=== PATIENT | male | born 1945 | race Caucasian/White ===

== ENCOUNTER 2024-04-01 12:26 | Outpatient (CLI) | payer MEDICARE, BC, SELFPAY | END 2024-04-01 12:27 | disposition home or self-care (01) | LOC: WOUND 12:30 | PROVIDERS: PCP Family Medicine Addiction Medicine; Visit Provider Nurse Practitioner Family | DX: E11.622 Type 2 diabetes mellitus with other skin ulcer (principal); L97.812 Non-pressure chronic ulcer of other part of right lower leg with fat layer exposed; I73.9 Peripheral vascular disease, unspecified; F17.200 Nicotine dependence, unspecified, uncomplicated; Z79.84 Long term (current) use of oral hypoglycemic drugs | CPT/HCPCS: 11042; G0463 ==

== ENCOUNTER 2024-04-08 13:12 | Outpatient (CLI) | payer MEDICARE, BC, SELFPAY | END 2024-04-08 13:13 | disposition home or self-care (01) | LOC: WOUND 13:12 | PROVIDERS: PCP Family Medicine Addiction Medicine; Visit Provider Nurse Practitioner Family | DX: E11.622 Type 2 diabetes mellitus with other skin ulcer (principal); L97.812 Non-pressure chronic ulcer of other part of right lower leg with fat layer exposed; F17.200 Nicotine dependence, unspecified, uncomplicated; Z79.84 Long term (current) use of oral hypoglycemic drugs | CPT/HCPCS: 11042 ==

== ENCOUNTER 2024-04-15 13:26 | Outpatient (CLI) | payer MEDICARE, BC, SELFPAY | END 2024-04-15 13:27 | disposition home or self-care (01) | LOC: WOUND 13:26 | PROVIDERS: PCP Family Medicine Addiction Medicine; Visit Provider Nurse Practitioner Family | DX: E11.622 Type 2 diabetes mellitus with other skin ulcer (principal); I73.9 Peripheral vascular disease, unspecified; L97.812 Non-pressure chronic ulcer of other part of right lower leg with fat layer exposed; F17.200 Nicotine dependence, unspecified, uncomplicated; Z79.84 Long term (current) use of oral hypoglycemic drugs | CPT/HCPCS: 11042 ==

== ENCOUNTER 2024-04-22 08:14 | Outpatient (CLI) | payer MEDICARE, BC, SELFPAY | END 2024-04-22 08:15 | disposition home or self-care (01) | PROVIDERS: PCP Family Medicine Addiction Medicine; Visit Provider Nurse Practitioner Family | DX: I73.9 Peripheral vascular disease, unspecified (principal); L97.812 Non-pressure chronic ulcer of other part of right lower leg with fat layer exposed; Z79.84 Long term (current) use of oral hypoglycemic drugs | CPT/HCPCS: 11042 ==

== ENCOUNTER 2024-04-29 10:42 | Outpatient (CLI) | payer MEDICARE, BC, SELFPAY | END 2024-04-29 10:43 | disposition home or self-care (01) | LOC: WOUND 10:42 | PROVIDERS: PCP Family Medicine Addiction Medicine; Visit Provider Nurse Practitioner Family | DX: E11.622 Type 2 diabetes mellitus with other skin ulcer (principal); I73.9 Peripheral vascular disease, unspecified; L97.812 Non-pressure chronic ulcer of other part of right lower leg with fat layer exposed; F17.200 Nicotine dependence, unspecified, uncomplicated; Z79.84 Long term (current) use of oral hypoglycemic drugs | CPT/HCPCS: 11042 ==

== ENCOUNTER 2024-05-06 12:55 | Outpatient (CLI) | payer MEDICARE, BC, SELFPAY | END 2024-05-06 12:56 | disposition home or self-care (01) | LOC: WOUND 12:55 | PROVIDERS: PCP Family Medicine Addiction Medicine; Visit Provider Nurse Practitioner Family | DX: E11.622 Type 2 diabetes mellitus with other skin ulcer (principal); I73.9 Peripheral vascular disease, unspecified; L97.812 Non-pressure chronic ulcer of other part of right lower leg with fat layer exposed; I50.32 Chronic diastolic (congestive) heart failure | CPT/HCPCS: 15271; Q4158 ==

== ENCOUNTER 2024-05-13 12:36 | Outpatient (CLI) | payer MEDICARE, BC, SELFPAY | END 2024-05-13 12:37 | disposition home or self-care (01) | LOC: WOUND 12:36 | PROVIDERS: PCP Family Medicine Addiction Medicine; Visit Provider Nurse Practitioner Family | DX: E11.622 Type 2 diabetes mellitus with other skin ulcer (principal); I73.9 Peripheral vascular disease, unspecified; L97.812 Non-pressure chronic ulcer of other part of right lower leg with fat layer exposed; S81.812A Laceration without foreign body, left lower leg, initial encounter; W22.8XXA Striking against or struck by other objects, initial encounter; F17.200 Nicotine dependence, unspecified, uncomplicated | CPT/HCPCS: G0463 ==

== ENCOUNTER 2024-05-20 09:32 | Outpatient (CLI) | payer MEDICARE, BC, SELFPAY | END 2024-05-20 09:33 | disposition home or self-care (01) | LOC: WOUND 09:34 | PROVIDERS: PCP Family Medicine Addiction Medicine; Visit Provider Nurse Practitioner Family | DX: E11.622 Type 2 diabetes mellitus with other skin ulcer (principal); L97.812 Non-pressure chronic ulcer of other part of right lower leg with fat layer exposed; F17.200 Nicotine dependence, unspecified, uncomplicated | CPT/HCPCS: 15271; Q4158 ==

== ENCOUNTER 2024-05-27 11:02 | Outpatient (CLI) | payer MEDICARE, BC, SELFPAY | END 2024-05-27 11:03 | disposition home or self-care (01) | LOC: WOUND 11:02 | PROVIDERS: PCP Family Medicine Addiction Medicine; Visit Provider Nurse Practitioner Family | DX: E11.622 Type 2 diabetes mellitus with other skin ulcer (principal); I73.9 Peripheral vascular disease, unspecified; L97.812 Non-pressure chronic ulcer of other part of right lower leg with fat layer exposed; F17.200 Nicotine dependence, unspecified, uncomplicated | CPT/HCPCS: G0463 ==

== ENCOUNTER 2024-06-03 12:40 | Outpatient (CLI) | payer MEDICARE, BC, SELFPAY | END 2024-06-03 12:41 | disposition home or self-care (01) | LOC: WOUND 12:40 | PROVIDERS: PCP Family Medicine Addiction Medicine; Visit Provider Nurse Practitioner Family | DX: E11.622 Type 2 diabetes mellitus with other skin ulcer (principal); L97.811 Non-pressure chronic ulcer of other part of right lower leg limited to breakdown of skin; I73.9 Peripheral vascular disease, unspecified; Z79.84 Long term (current) use of oral hypoglycemic drugs | CPT/HCPCS: 97597 ==

== ENCOUNTER 2024-06-10 12:46 | Outpatient (CLI) | payer MEDICARE, BC, SELFPAY | END 2024-06-10 12:47 | disposition home or self-care (01) | LOC: WOUND 12:53 | PROVIDERS: PCP Family Medicine Addiction Medicine; Visit Provider Nurse Practitioner Family | DX: E11.622 Type 2 diabetes mellitus with other skin ulcer (principal); L97.811 Non-pressure chronic ulcer of other part of right lower leg limited to breakdown of skin; I73.9 Peripheral vascular disease, unspecified; F17.200 Nicotine dependence, unspecified, uncomplicated | CPT/HCPCS: 97597; G0463 ==

== ENCOUNTER 2024-06-17 12:39 | Outpatient (CLI) | payer MEDICARE, BC, SELFPAY | END 2024-06-17 12:40 | disposition home or self-care (01) | LOC: WOUND 12:39 | PROVIDERS: PCP Family Medicine Addiction Medicine; Visit Provider Nurse Practitioner Family | DX: E11.622 Type 2 diabetes mellitus with other skin ulcer (principal); I73.9 Peripheral vascular disease, unspecified; L97.818 Non-pressure chronic ulcer of other part of right lower leg with other specified severity; F17.200 Nicotine dependence, unspecified, uncomplicated; Z79.84 Long term (current) use of oral hypoglycemic drugs | CPT/HCPCS: G0463 ==

== ENCOUNTER 2024-07-01 12:35 | Outpatient (CLI) | payer MEDICARE, BC, SELFPAY | END 2024-07-01 12:36 | disposition home or self-care (01) | LOC: WOUND 12:36 | PROVIDERS: PCP Family Medicine Addiction Medicine; Visit Provider Nurse Practitioner Family | DX: E11.622 Type 2 diabetes mellitus with other skin ulcer (principal); I73.9 Peripheral vascular disease, unspecified; L97.818 Non-pressure chronic ulcer of other part of right lower leg with other specified severity; Z79.84 Long term (current) use of oral hypoglycemic drugs | CPT/HCPCS: G0463 ==

== ENCOUNTER 2024-12-28 16:31 | Inpatient (IN) | payer MEDICARE, BC, SELFPAY ==
[2024-12-28] VITALS (52 sets, daily range): BP systolic 97–200; BP diastolic 52–108; PULSE 74–134; RESP 8–28; TEMP 36.6–37; O2SAT 90–100; BMI 28.0; BMI 25.0
--- NOTE | 2024-12-28 16:55 | ED_ITS ---
HPI - General Adult General Chief complaint: Weakness Stated complaint: Weakness Time Seen by Provider: 12/28/24 16:55 History of Present Illness HPI narrative: Patient reports a couple of days of progressive weakness. His ex- phoned for EMS today bringing him to ED. Patient is unsure if he took his medications today. Is in a?fib with HR 99- 120's. Denies pain, nausea, vomiting diarrhea. Does have a congested cough and is a smoker. 79-year-old man presenting to the emergency department concern of weakness. Worse over the last couple of days. Brought by EMS. Denies any pain. Eating or drinking very little over the last couple of days. Has had cough which soun ds somewhat chronic. Does have history of COPD. Does smoke. No fever. His ex reports that he cannot see. Unknown whether not he has been having dark stools. 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 metformin 500 mg daily clopidogrel 75 mg daily aspirin 81 mg daily trazodone 50 mg at bedtime iron supplementation ferrous gluconate 324 mg daily rosuvastatin 40 mg daily Apparently is pending a right carotid endarterectomy as described. Apparently fell a couple of times in the last 2 days recently striking his head ?hard?. Denies pain otherwise. No neck pain. Related Data Home Medications ?Medication ?Instructions ?Recorded ?Confirmed clopidogrel 75 mg tablet 75 mg PO DAILY 12/28/24 12/28/24 metformin 500 mg tablet 500 mg PO DAILY 12/28/24 12/28/24 metoprolol tartrate 75 mg tablet 75 mg PO BID 12/28/24 12/28/24 rosuvastatin 40 mg tablet 40 mg PO HS 12/28/24 12/28/24 trazodone 50 mg tablet 50 mg PO QPM 12/28/24 12/28/24 Allergies Allergy/AdvReac Type Severity Reaction Status Date / Time No Known Drug Allergies Allergy Verified 12/28/24 19:50 Review of Systems Status of ROS: Reports: 6 or more systems reviewed and unremarkable except as noted in History and below PFSH PFSH Social History Smoking Status: Current every day smoker What tobacco products do you use: cigarettes How often do you have a drink containing alcohol: never AUDIT-C Alcohol total score: 0 Non-prescribed substance use: denies use service: Yes Exam Narrative: Exam Narrative: Pleasant. Does appear tired. Heavily bearded stain presumably from cigarette smoking. Very pale mucous membranes. Full dentures. Breathing easily with trace end-expiratory wheeze diffusely. In at times appears to be staring past me consistent with macular degeneration as described. Pupils are equal. I do not appreciate any evidence of head injury. Neck is supple nontender. Back nontender. Abdomen is soft nontender. 1+ pretibial pitting edema right little greater than the left. Minor tears over right forearm and Band-Aids in place as well as bilateral shins. Reports becoming a little lightheaded when he goes to sit for exam. Heart is tachycardic occasional ectopic beat. There is odor of old urine. Return later to do stool guaiac collection. There is no blood staining in the perianal area. Moderate soft stool deep in rectal vault. Very melanotic in appearance. Const: Vital Signs, click to edit/add: Vital Signs - 24 hr 12/28/24 16:42 12/28/24 16:43 12/28/24 16:45 Temperature 98.3 F Pulse Rate 123 H 122 H Pulse Rate [Pulse Oximeter] 126 H Respiratory Rate 21 20 18 Blood Pressure 97/52 L Blood Pressure [Ri ght Upper Arm] 97/52 L Pulse Oximetry 98 91 96 Oxygen Delivery Me thod Room Air 12/28/24 16:45 12/28/24 17:00 12/28/24 17:15 Temperature Pulse Rate 119 H 105 H 134 H Pulse Rate [Pulse Oximeter] Respiratory Rate 28 H 13 25 H Blood Pressure Blood Pressure [Ri ght Upper Arm] Pulse Oximetry 97 100 93 Oxygen Delivery Me thod 12/28/24 17:17 12/28/24 17:18 12/28/24 17:19 Temperature Pulse Rate 111 H 105 H Pulse Rate [Pulse Oximeter] Respiratory Rate 27 H 14 Blood Pressure 123/66 Blood Pressure [Ri ght Upper Arm] Pulse Oximetry 98 100 94 Oxygen Delivery Me thod 12/28/24 17:30 12/28/24 17:32 12/28/24 17:45 Temperature Pulse Rate 111 H 106 H 118 H Pulse Rate [Pulse Oximeter] Respiratory Rate 17 17 Blood Pressure 99/60 Blood Pressure [Ri ght Upper Arm] Pulse Oximetry 96 98 95 Oxygen Delivery Me thod 12/28/24 17:47 12/28/24 18:00 12/28/24 18:01 Temperature Pulse Rate 95 76 120 H Pulse Rate [Pulse Oximeter] Respiratory Rate 24 23 19 Blood Pressure 114/66 114/93 H Blood Pressure [Ri ght Upper Arm] Pulse Oximetry 99 100 99 Oxygen Delivery Me thod 12/28/24 18:19 12/28/24 18:30 12/28/24 18:32 Temperature Pulse Rate 88 115 H Pulse Rate [Pulse Oximeter] Respiratory Rate 14 20 24 Blood Pressure 103/71 142/71 H Blood Pressure [Ri ght Upper Arm] Pulse Oximetry 100 99 Oxygen Delivery Me thod 12/28/24 18:45 12/28/24 18:47 12/28/24 18:48 Temperature Pulse Rate 105 H 122 H 114 H Pulse Rate [Pulse Oximeter] Respiratory Rate 19 17 15 Blood Pressure 118/96 H Blood Pressure [Ri ght Upper Arm] Pulse Oximetry 100 100 100 Oxygen Delivery Ar thod 12/28/24 19:00 12/28/24 19:01 12/28/24 19:17 Temperature 98.2 F Pulse Rate 105 H Pulse Rate [Pulse Oximeter] Respiratory Rate 17 25 H 14 Blood Pressure 130/82 172/65 H Blood Pressure [Ri ght Upper Arm] Pulse Oximetry [facility] 12/28/24 19:30 12/28/24 19:32 12/28/24 19:45 Temperature Pulse Rate Pulse Rate [Pulse Oximeter] Respiratory Rate 12 20 13 Blood Pressure 122/62 Blood Pressure [Ri ght Upper Arm] Pulse Oximetry Oxygen Delivery Ar thod 12/28/24 19:47 12/28/24 20:07 12/28/24 20:15 Temperature Pulse Rate 104 H Pulse Rate [Pulse Oximeter] Respiratory Rate 10 L 23 14 Blood Pressure 151/76 H Blood Pressure [Ri ght Upper Arm] Pulse Oximetry 98 Oxygen Delivery Ar thod 12/28/24 20:29 12/28/24 20:44 Temperature 98.0 F 98.0 F Pulse Rate 99 120 H Pulse Rate [Pulse Oximeter] Respiratory Rate 18 18 Blood Pressure 157/82 H 169/82 H Blood Pressure [Ri ght Upper Arm] Pulse Oximetry 99 99 Oxygen Delivery Me thod Room Air Room Air Documenting provider has reviewed patient's vital signs: yes Course Vital Signs Vital signs: Initial Vital Signs Pulse Rate 123 H 12/28/24 16:42 Respiratory Rate 21 12/28/24 16:42 Blood Pressure 97/52 L 12/28/24 16:42 Blood Pressure Mean 67 L 12/28/24 16:42 Pulse Oximetry 98 12/28/24 16:42 Vital Signs Pulse Rate 123 H 12/28/24 16:42 Respiratory Rate 21 12/28/24 16:42 Blood Pressure 97/52 L 12/28/24 16:42 Pulse Oximetry 98 12/28/24 16:42 Temperature 98.0 F 12/28/24 20:44 Pulse Rate 120 H 12/28/24 20:44 Respiratory Rate 18 12/28/24 20:44 Blood Pressure 169/82 H 12/28/24 20:44 Pulse Oximetry 99 12/28/24 20:44 Oxygen Delivery Method Room Air 12/28/24 20:44 Medications Administered Medications: Discontinued Medications Generic Name Dose Route Start Last Admin Trade Name Freq PRN Reason Stop Dose Admin Sodium Chloride 500 mls @ 500 mls/hr 12/28/24 19:32 12/28/24 21:03 0.9 % Sodium Chloride 500 Ml IV 12/28/24 20:31 Infused .Q1H ONE Infusion Pantoprazole Sodium 80 mg 12/28/24 19:40 12/28/24 20:16 Pantoprazole Sodium 40 Mg Inj IVP 12/28/24 19:41 80 mg ONCE ONE Administration Medical Decision Making MDM Narrative Medical decision making narrative: Will check labs looking for infection or anemia as potential source of weakness. Would do chest x-ray as well. Head imaging for potential bleed. Initial EKG does show atrial fibrillation with RVR. This appears to be a new diagnosis. This certainly could be the source of weakness. Will be looking for reasons for atrial fibrillation as well. Initial hemoglobin at 4.8. Rechecking. This could be reason for atrial fibrillation. Will collect troponins as well. Initial troponin point of care troponin I is 0.7. This is finally repeated in lab at 0.66 along with confirming hemoglobin. Pending repeat troponin I at this time. Certainly possible that some of these falls may have been related to anemia or cardiac event now with falling troponin? Collection collection of stool for stool guaiac is rather melanotic as noted Confirmed anemia. Will be type and crossing for 2 units. One-view chest x-ray independently reviewed by me shows sternotomy wires and mild cardiomegaly. A little hyperexpanded? Radiology over-read below Indication: Wheeze, weakness Comparison: None available. Technique: Single AP view chest Findings: There is hyperinflation and chronic interstitial change. There is basilar atelectasis and parenchymal scar. There is no pneumothorax or pleural effusion. The cardiac silhouette is within normal limits with median sternotomy wires. The bony thorax is grossly intact. Impression: Mild emphysematous changes with basilar atelectasis and parenchymal scar. No dense consolidation. Dictated by Giovany Crowley MD @ 12/28/2024 6:31:[address] head independently reviewed by me looks to be without acute abnormality/bleed. FALLS WITH HEAD IMPACT, ANTICOAGULATION TECHNIQUE: CT of the head was performed without IV contrast. COMPARISON: None. FINDINGS: Slightly suboptimal examination secondary to motion artifact. Parenchyma: No acute hemorrhage, infarction, or mass. Mild confluent periventricular white matter hypoattenuation is nonspecific and is favored to represent chronic small vessel ischemic disease. Ventricles and extra-axial spaces: Mild to moderate involutional changes. Cavum septum pellucidum et vergae. Visualized paranasal sinuses: Moderate right maxillary sinus mucosal retention cyst versus polyp. Mastoid air cells: Clear. Bones: No focal abnormality. Additional comment: Bilateral lens surgery. IMPRESSION: No acute intracranial abnormality. Please note that all CT scans at this facility use dose modulation, iterative reconstruction, and/or weight-based dosing when appropriate to reduce radiation dose to as low as reasonably achievable. Dictated by Dimitris Jones MD @ 12/28/2024 6:46:21 PM Repeat point of care troponin unfortunately is elevated now at 1.66. [place] [id number]. With severe anemia, symptomatic, but with no chest pain I am reluctant to anticoagulate or heparinize. Would reassess cardiac status following transfusion. Would not convert at this point due with stable blood pressure and without chest pain or acute shortness of breath and with unknown duration of atrial fibrillation. Have discussed this case with our hospitalist who is anticipating admission. We will however do CT imaging of the abdomen and pelvis here in the emergency department looking for evidence of more brisk impending bleeding or perhaps large mass requiring more urgent intervention elsewhere. CT imaging abdomen pelvis by my read looks to show some increased lower colonic stool. I do not see stranding or inflammatory changes to suggest diverticulitis. Some swelling or irregularity adjacent to the lower colon on the left? side. Radiology over-read below Indication: GI bleed Technique: Volumetric multidetector CT images of the abdomen and pelvis were obtained before and after the administration of intravenous contrast using a GI bleed protocol. Maximum intensity projections were also performed. 100 cc Isovue 370 low osmolar intravenous contrast Comparison: None available. Findings: There is minimal bronchial thickening of the partially visualized lower lobe bronchi with basilar atelectasis and parenchymal scar. Cystic changes of the liver are appreciated with mild hepatic steatosis. The portal vein is patent. The gallbladder is unremarkable without evidence of radiopaque calculus. There is no significant common biliary ductal dilatation or abrupt cut off. The spleen is normal in enhancement and size. Decompressed appearance of the stomach with minimal nonspecific thickening of the gastric antrum. The pancreas is normal in enhancement without significant atrophy. Mildly bulky appearance of the left adrenal gland. The right adrenal gland is unremarkable. There is atrophy of the left kidney with compensatory hypertrophy of the right kidney. There is otherwise preserved corticomedullary differentiation. There is demonstration of moderate stool seen throughout the colon with somewhat hyperdense appearing stool within the mid transverse colon and descending colon without evidence of obvious contrast blush. The appendix is unremarkable. There are low-density nodules seen within the left pericolic gutter adjacent to the distal descending colon the largest of which is seen on series 5, image 190 measuring 1.7 centimeters in greatest dimension with additional nodules appreciated the next largest measuring up to 1.2 centimeters. No evidence of pathologic lymph nodes within the retroperitoneum or central mesentery. The aorta demonstrates extensive atherosclerotic calcification with atherosclerotic calcification of the celiac origin and superior mesenteric artery origin without evidence of high-grade stenosis. Patent inferior mesenteric artery. The solid pelvic viscera are grossly unremarkable. There is no free fluid or free air. The anterior abdominal wall is intact without significant hernias. The lumbar vertebral body heights are grossly maintained with minimal endplate Schmorl`s defects. Demonstration somewhat age indeterminate deformity of the inferior T12 endplate Impression: 1. Moderate hyperdense stool appreciated within the mid to distal colon without evidence of significant contrast blush to suggest site of active hemorrhage. 2. Demonstration soft tissue mass lesions within the left pericolic gutter adjacent to the descending colon. These findings are concerning for potential neoplastic changes and/or metastatic disease. No obvious malignancy or primary source is identified. Consider further evaluation with colonoscopy and/or PET-CT for improved characterization. 3. Otherwise, no acute intra-abdominal abnormality is appreciated. Please note that all CT scans at this facility use dose modulation, iterative reconstruction, and/or weight-based dosing when appropriate to reduce radiation dose to as low as reasonably achievable. Dictated by Giovany Crowley MD @ 12/28/2024 8:39:50 PM Discussed all findings with Mr. Luis and family. Initiated blood transfusion following consent. Last hemoglobin family canal me locate was I believe 14.2 about a year ago. Also was not in atrial fibrillation at that time Medical Records Medical records reviewed: Yes I reviewed the patient's medical records Lab Data Lab results reviewed: Yes I reviewed the patient's lab results Labs: Lab Results 12/28/24 12/28/24 12/28/24 Range/Units 16:43 16:50 17:13 WBC 10.32 (4.50-11.00) K/uL RBC 1.59 L (4.30-5.90) m/uL Hgb 4.8 L* (13.5-17.5) gm/dL Hct 15.7 L (37.0-53.0) % MCV 99 (80-100) fL MCH 30 (26-34) pg MCHC 31 L (32-36) gm/dL RDW Coeff of Get 17.2 H (11.5-15.5) % Plt Count 247 (140-440) K/uL Neut % (Auto) 85.7 H (42.0-72.0) % Lymph % (Auto) 6.4 L (20-44) % [place] % (Auto) 7.3 (0.0-11.0) % Eos % (Auto) 0.0 (0.0-7.0) % Baso % (Auto) 0.2 (0.0-3.0) % Neut # (Auto) 8.80 H (1.7-7.0) K/uL Lymph # (Auto) 0.70 L (0.90-2.90) K/uL [place] # (Auto) 0.80 (0.00-0.90) K/UL Eos # (Auto) 0.00 (0.00-0.50) K/uL Baso # (Auto) 0.02 (0.00-0.30) K/uL Abs Immat Gran (auto) 0.04 (0.00-0.30) K/uL Imm/Tot Granulo (auto) 0.4 % INR 1.12 H (0.91-1.10) APTT 28 (23-33) Seconds Sodium 135 (135-149) mmol/L Potassium 3.5 L (3.6-5.1) mmol/L Chloride 104 (96-114) mmol/L Carbon Dioxide 20 (20-32) mmol/L Anion Gap 11 (7-15) mEq/L BUN 23 (7-30) mg/dL Creatinine 1.0 (0.5-1.5) mg/dL Estimated Creat Clear 75.95 Estimated GFR 78 ml/min Glucose 107 (60-115) mg/dL Lactate 1.9 (0.5-1.9) mmol/L Calcium 8.5 (8.4-10.6) mg/dL Magnesium 2.1 (1.5-2.6) mg/dL Total Bilirubin 0.9 (0.1-1.5) mg/dL Direct Bilirubin 0.4 (0.0-0.5) mg/dL AST 108 H (12-35) U/L ALT 40 (4-50) U/L Alkaline Phosphatase 44 (40-150) U/L Troponin I 0.66 H* (0.01-0.04) ng/mL NT-Pro-B Natriuret Pep 20014 pg/mL Total Protein 5.6 L (6.0-8.3) g/dL Albumin 3.6 (3.3-5.0) g/dL Stool Occult Blood (Negative) SARS-CoV-2 (PCR) Negative SARS-CoV-2 (Negative) Influenza Type A (PCR) Negative PCR FLU A (Negative) Influenza Type B (PCR) Negative PCR FLU B (Negative) Lab Acknowledgement Test Added POC Troponin I 0.74 H (0.01-0.04) ng/ml Blood Type A Positive Antibody Screen NEGATIVE Crossmatch (AHG) See Detail 04/08/25 04/08/25 04/08/25 Range/Units 17:16 17:17 17:31 WBC (4.50-11.00) K/uL RBC (4.30-5.90) m/uL Hgb (13.5-17.5) gm/dL Hct (37.0-53.0) % MCV (80-100) fL MCH (26-34) pg MCHC (32-36) gm/dL RDW Coeff of Get (11.5-15.5) % Plt Count (140-440) K/uL Neut % (Auto) (42.0-72.0) % Lymph % (Auto) (20-44) % [place] % (Auto) (0.0-11.0) % Eos % (Auto) (0.0-7.0) % Baso % (Auto) (0.0-3.0) % Neut # (Auto) (1.7-7.0) K/uL Lymph # (Auto) (0.90-2.90) K/uL [place] # (Auto) (0.00-0.90) K/UL Eos # (Auto) (0.00-0.50) K/uL Baso # (Auto) (0.00-0.30) K/uL Abs Immat Gran (auto) (0.00-0.30) K/uL Imm/Tot Granulo (auto) % INR (0.91-1.10) APTT (23-33) Seconds Sodium (135-149) mmol/L Potassium (3.6-5.1) mmol/L Chloride (96-114) mmol/L Carbon Dioxide (20-32) mmol/L Anion Gap (7-15) mEq/L BUN (7-30) mg/dL Creatinine (0.5-1.5) mg/dL Estimated Creat Clear Estimated GFR ml/min Glucose (60-115) mg/dL Lactate (0.5-1.9) mmol/L Calcium (8.4-10.6) mg/dL Magnesium (1.5-2.6) mg/dL Total Bilirubin (0.1-1.5) mg/dL Direct Bilirubin (0.0-0.5) mg/dL AST (12-35) U/L ALT (4-50) U/L Alkaline Phosphatase (40-150) U/L Troponin I (0.01-0.04) ng/mL NT-Pro-B Natriuret Pep pg/mL Total Protein (6.0-8.3) g/dL Albumin (3.3-5.0) g/dL Stool Occult Blood (Negative) SARS-CoV-2 (PCR) (Negative) Influenza Type A (PCR) (Negative) Influenza Type B (PCR) (Negative) Lab Acknowledgement Test Added Test Added Test Added POC Troponin I (0.01-0.04) ng/ml Blood Type Antibody Screen Crossmatch (AHG) 12/28/24 12/28/24 12/28/24 Range/Units 18:52 19:09 20:30 WBC (4.50-11.00) K/uL RBC (4.30-5.90) m/uL Hgb (13.5-17.5) gm/dL Hct (37.0-53.0) % MCV (80-100) fL MCH (26-34) pg MCHC (32-36) gm/dL RDW Coeff of Get (11.5-15.5) % Plt Count (140-440) K/uL Neut % (Auto) (42.0-72.0) % Lymph % (Auto) (20-44) % [place] % (Auto) (0.0-11.0) % Eos % (Auto) (0.0-7.0) % Baso % (Auto) (0.0-3.0) % Neut # (Auto) (1.7-7.0) K/uL Lymph # (Auto) (0.90-2.90) K/uL [place] # (Auto) (0.00-0.90) K/UL Eos # (Auto) (0.00-0.50) K/uL Baso # (Auto) (0.00-0.30) K/uL Abs Immat Gran (auto) (0.00-0.30) K/uL Imm/Tot Granulo (auto) % INR (0.91-1.10) APTT (23-33) Seconds Sodium (135-149) mmol/L Potassium (3.6-5.1) mmol/L Chloride (96-114) mmol/L Carbon Dioxide (20-32) mmol/L Anion Gap (7-15) mEq/L BUN (7-30) mg/dL Creatinine (0.5-1.5) mg/dL Estimated Creat Clear Estimated GFR ml/min Glucose (60-115) mg/dL Lactate (0.5-1.9) mmol/L Calcium (8.4-10.6) mg/dL Magnesium (1.5-2.6) mg/dL Total Bilirubin (0.1-1.5) mg/dL Direct Bilirubin (0.0-0.5) mg/dL AST (12-35) U/L ALT (4-50) U/L Alkaline Phosphatase (40-150) U/L Troponin I (0.01-0.04) ng/mL NT-Pro-B Natriuret Pep pg/mL Total Protein (6.0-8.3) g/dL Albumin (3.3-5.0) g/dL Stool Occult Blood Positive (Negative) SARS-CoV-2 (PCR) (Negative) Influenza Type A (PCR) (Negative) Influenza Type B (PCR) (Negative) Lab Acknowledgement Test Added POC Troponin I 1.66 H (0.01-0.04) ng/ml Blood Type Antibody Screen Crossmatch (AHG) ECG Data Attestation: I personally reviewed and interpreted this ECG as follows: (Atrial fibrillation with RVR at a rate of 113) Critical Care Time Critical Care Time Total Critical Care Time in Minutes: 70 Discharge Plan Discharge Clinical Impression: GI bleed, Severe anemia, Elevated troponin, Atrial fibrillation with rapid ventricular response Patient Disposition: Admitted As Observation Condition: Stable
--- OUTSIDE RECORDS SUMMARY | 2024-12-28 17:00 | XMS_ITS | Clinical Summary ---
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 to the right also indicative of high-grade stenosis at themidportion of the stent. No dissection. VERTEBRAL ARTERIES: Short segment calcific plaque and stable high-gradestenosis left V4 segment about 80%. This is stable from prior CTA. Noadditional/new high-grade stenosis or dissection of the vertebral arterialaxis. Calcific plaque without stenosis near the left vertebral arterialorigin. Slight congenital dominant caliber of the right vertebral artery.V4 segments coalesce to form a reduced caliber basilar artery on acongenital basis. There is suggested proximal basilar arterialfenestration which represents normal developmental variation. AORTIC ARCH: Sternotomy. Prominent origin right innominate and left commoncarotid artery represents normal anatomic variation. Calcific plaque withmild origin stenoses at the right innominate, left common carotid arteryand proximal left subclavian artery 10-25% most marked at the proximalright innominate arterial level is stable from 04/22/2023. No progressivestenoses, high-grade stenosis or dissection is evident at the great vesselorigin level. NONVASCULAR STRUCTURES: No additional pathologic enhancementintracranially or within the orbits. Mucous retention cyst right maxillarysinus. Nasopharynx is patent. No mass or adenopathy within the neck softtissues. Thyroid is satisfactory. Hyoid bone and neck cartilage arenormal. No severe cervical spinal canal narrowing. Sternotomy. Lung apicesshow minimal apical blebs and fibrotic scarring. Degenerative changes inthe cervical spine with satisfactory height/alignment overall. IMPRESSION: HEAD CT: 1. No CT evidence for acute intracranial process. 2. Brain atrophy and presumed chronic microvascular ischemic changes asabove. Stable benign mineralization anterior falcine region at theinterhemispheric fissure level may represent stable benign falcinecalcification and/or densely calcified meningioma and should be of nocurrent clinical significance. 3. Increased partial opacification mid right ethmoid air cells from priorhead CT. 4. No other significant changes. HEAD CTA: 1. Stable appearance from CTA 04/22/2023 involving the [place]els. Stable mild stenosis left cavernous and supra clinoid ICA. Stablemild stenoses bilateral DERMATOLOGY TEACHER distribution with no large vessel occlusion,high-grade stenosis, dissection, or aneurysm intracranially. There is someenhancement of calcified anterior interhemispheric midline mass whichshould represent a stable benign calcified meningioma of no clinicalsignificance. Dural venous sinus enhancement is normal. No additionalpathologic enhancement intracranially is evident. NECK CTA: 1. Since prior CTA 04/22/2023 interval procedural changes of bilateralendovascular carotid stent procedures. High-grade stenoses are presentwithin the stents at the midportion of the stents with moderate lengthstenoses overall. There is some reduction of caliber and degree ofenhancement within the left ICA within the remainder of the left ICAdistal to the stent also indicative of high-grade stenosis. No tandemstenoses or dissection distal to the ICA portion of the stentsbilaterally. Stable high-grade stenosis left vertebral arterial origins.Stable mild stenoses at the origins of the great vessels. No additionalpathologic enhancement in the neck. No dissection. Sternotomy. Gildardo Garza [facility] [place] Fi nal Result * CT HEAD BRAIN WO (12/08/2024 12:13 PM CDT) Anatomical Region Laterality Modality HEAD, BRAIN Computed Tomogra phy 12/08/2024 12:1 3 PM CDT Impressions 12/08/2024 1:[address]: 1. No CT evidence for acute intracranial process. 2. Brain atrophy and presumed chronic microvascular ischemic changes as above. Stable benign mineralization anterior falcine region at the interhemispheric fissure level may represent stable benign falcine calcification and/or densely calcified meningioma and should be of no current clinical significance. 3. Increased partial opacification mid right ethmoid air cells from prior head CT. 4. No other significant changes. HEAD CTA: 1. Stable appearance from CTA 04/22/2023 involving the [place] vessels. Stable mild stenosis left cavernous and supra clinoid ICA. Stable mild stenoses bilateral DERMATOLOGY TEACHER distribution with no large vessel occlusion, high-grade stenosis, dissection, or aneurysm intracranially. There is some enhancement of calcified anterior interhemispheric midline mass which should represent a stable benign calcified meningioma of no clinical significance. Dural venous sinus enhancement is normal. No additional pathologic enhancement intracranially is evident. NECK CTA: 1. Since prior CTA 04/22/2023 interval procedural changes of bilateral endovascular carotid stent procedures. High-grade stenoses are present within the stents at the midportion of the stents with moderate length stenoses overall. There is some reduction of caliber and degree of enhancement within the left ICA within the remainder of the left ICA distal to the stent also indicative of high-grade stenosis. No tandem stenoses or dissection distal to the ICA portion of the stents bilaterally. Stable high-grade stenosis left vertebral arterial origins. Stable mild stenoses at the origins of the great vessels. No additional pathologic enhancement in the neck. No dissection. Sternotomy. Narrative 12/08/2024 1:01 PM CDT For Patients: As a result of the Century Cures Act, medical imaging exams and procedure reports are released immediately into your electronic medical record. You may view this report before your referring provider. If you have questions, please contact your health care provider. EXAM: CTA HEAD AND NECK CAROTID, CT HEAD BRAIN WO LOCATION: [facility] DATE: 12/08/2024 INDICATION: Stenosis of carotid artery, unspecified laterality. COMPARISON: 04/22/[address] angiogram head/neck. CONTRAST: Iohexol 350 mg iodine/mL IV 100 mL bottle: 75 mL (accession [id number]), none (accession [id number]) TECHNIQUE: Head and neck CT angiogram with IV contrast. Noncontrast head CT followed by axial helical CT images of the head and neck vessels obtained during the arterial phase of intravenous contrast administration. Axial 2D reconstructed images and multiplanar 3D MIP reconstructed images of the head and neck vessels were performed by the technologist. Dose reduction techniques were used. All stenosis measurements made according to NASCET criteria unless otherwise specified. FINDINGS: NONCONTRAST HEAD CT: INTRACRANIAL CONTENTS: No hyperdense hemorrhage. Cavum septum pellucidum et vergae represents normal anatomic variation. Cerebellar tonsillar position is normal. No sella or suprasellar mass/hemorrhage. No CT evidence of acute infarct. Mild presumed chronic small vessel ischemic changes. Stable benign 1 cm mineralization associated with the anterior falx in the midline at the interhemispheric fissure level as before series 3 image 22 should represent a stable benign calcified meningioma or benign lobular falcine calcification of no current clinical significance. Mild generalized volume loss. No hydrocephalus. VISUALIZED ORBITS/SINUSES/MASTOIDS: Prior bilateral cataract surgery. Visualized portions of the orbits are otherwise unremarkable. Mucous retention cyst right maxillary sinus as before. Partial opacification of the ethmoid air cells. This is increased from prior head CT. No middle ear or mastoid effusion. Debris/cerumen partially obstructs the EACs bilaterally right more than left. BONES/SOFT TISSUES: No scalp hematoma. No skull fracture. HEAD CTA: ANTERIOR CIRCULATION: No stenosis/occlusion, aneurysm, or high flow vascular malformation. Small right-sided posterior communicating artery augments the right posterior circulation. Satisfactory peripheral branch arborization pattern and caliber bilateral [place] and MCA distribution. Mild stenosis left cavernous and supraclinoid ICA under 30% stable from prior CTA. There is some enhancement within the calcified falcine lesion in the midline at the interhemispheric fissure level supportive of meningioma as diagnosis. This should be of no current clinical significance. POSTERIOR CIRCULATION: No high-grade stenosis/occlusion, aneurysm, or high flow vascular malformation. Congenitally reduced caliber basilar artery. Augmentation of the posterior circulation with right-sided prominent posterior communicating artery. Satisfactory peripheral branch arborization bilateral DERMATOLOGY TEACHER distribution. Mild stenoses bilateral DERMATOLOGY TEACHER P3 and P4 level stable from 04/22/2023. DURAL VENOUS SINUSES: Expected enhancement of the major dural venous sinuses. NECK CTA: RIGHT CAROTID: Right endarterectomy procedural changes are new from prior CTA 04/22/2023. There is high-grade stenosis at the midportion of the stent with coarse calcific plaque on either side of this area of high-grade stenosis probably 90- 95% in degree, seen maximal series 5 images 350-358. The length of stenosis is moderate. Distal to the stent within the right ICA there is no additional/tandem stenosis or dissection noted. LEFT CAROTID: Left endarterectomy procedural changes are new from CTA 04/22/2023. At and proximal to the proximal aspect of the carotid stent, within the distal left common carotid artery endoluminal filling defect is present which should represent a small degree of adherent thrombus. This is seen series 5 images 270-275. This results in only mild hemodynamic stenosis proximal to the stent under 30%. Within the left ICA stent itself there is significant narrowing at the mid portion of the stent probably resulting in 80%-90% hemodynamic stenosis maximally seen series 5 image 330. Stenosis is tapered in morphology on both ends and is moderate in length. The left ICA distal to the stent is slightly reduced in caliber relative to the right also indicative of high-grade stenosis at the midportion of the stent. No dissection. VERTEBRAL ARTERIES: Short segment calcific plaque and stable high-grade stenosis left V4 segment about 80%. This is stable from prior CTA. No additional/new high- grade stenosis or dissection of the vertebral arterial axis. Calcific plaque without stenosis near the left vertebral arterial origin. Slight congenital dominant caliber of the right vertebral artery. V4 segments coalesce to form a reduced caliber basilar artery on a congenital basis. There is suggested proximal basilar arterial fenestration which represents normal developmental variation. AORTIC ARCH: Sternotomy. Prominent origin right innominate and left common carotid artery represents normal anatomic variation. Calcific plaque with mild origin stenoses at the right innominate, left common carotid artery and proximal left subclavian artery 10-25% most marked at the proximal right innominate arterial level is stable from 04/22/2023. No progressive stenoses, high-grade stenosis or dissection is evident at the great vessel origin level. NONVASCULAR STRUCTURES: No additional pathologic enhancement intracranially or within the orbits. Mucous retention cyst right maxillary sinus. Nasopharynx is patent. No mass or adenopathy within the neck soft tissues. Thyroid is satisfactory. Hyoid bone and neck cartilage are normal. No severe cervical spinal canal narrowing. Sternotomy. Lung apices show minimal apical blebs and fibrotic scarring. Degenerative changes in the cervical spine with satisfactory height/alignment overall. Procedure Note Errol Mack MD - 12/08/2024 For Patients: As a result of the Century Cures Act, medical imagingexams and procedure reports are released immediately into your electronicmedical record. You may view this report before your referring provider.If you have questions, please contact your health care provider. EXAM: CTA HEAD AND NECK CAROTID, CT HEAD BRAIN WO LOCATION: [facility] DATE: 12/08/2024 INDICATION: Stenosis of carotid artery, unspecified laterality. COMPARISON: 04/22/[address] angiogram head/neck. CONTRAST: Iohexol 350 mg iodine/mL IV 100 mL bottle: 75 mL ([id number]), none (accession [id number]) TECHNIQUE: Head and neck CT angiogram with IV contrast. Noncontrast headCT followed by axial helical CT images of the head and neck vesselsobtained during the arterial phase of intravenous contrast administration.Axial 2D reconstructed images and multiplanar 3D MIP reconstructed imagesof the head and neck vessels were performed by the technologist. Dosereduction techniques were used. All stenosis measurements made accordingto NASCET criteria unless otherwise specified. FINDINGS: NONCONTRAST HEAD CT: INTRACRANIAL CONTENTS: No hyperdense hemorrhage. Cavum septum pellucidumet vergae represents normal anatomic variation. Cerebellar tonsillarposition is normal. No sella or suprasellar mass/hemorrhage. No CTevidence of acute infarct. Mild presumed chronic small vessel ischemicchanges. Stable benign 1 cm mineralization associated with the anteriorfalx in the midline at the interhemispheric fissure level as before series3 image 22 should represent a stable benign calcified meningioma or benignlobular falcine calcification of no current clinical significance. Mildgeneralized volume loss. No hydrocephalus. VISUALIZED ORBITS/SINUSES/MASTOIDS: Prior bilateral cataract surgery.Visualized portions of the orbits are otherwise unremarkable. Mucousretention cyst right maxillary sinus as before. Partial opacification ofthe ethmoid air cells. This is increased from prior head CT. No middle earor mastoid effusion. Debris/cerumen partially obstructs the EACsbilaterally right more than left. BONES/SOFT TISSUES: No scalp hematoma. No skull fracture. HEAD CTA: ANTERIOR CIRCULATION: No stenosis/occlusion, aneurysm, or high flowvascular malformation. Small right-sided posterior communicating arteryaugments the right posterior circulation. Satisfactory peripheral brancharborization pattern and caliber bilateral [place] and MCA distribution. Mildstenosis left cavernous and supraclinoid ICA under 30% stable from priorCTA. There is some enhancement within the calcified falcine lesion in themidline at the interhemispheric fissure level supportive of meningioma asdiagnosis. This should be of no current clinical significance. POSTERIOR CIRCULATION: No high-grade stenosis/occlusion, aneurysm, or highflow vascular malformation. Congenitally reduced caliber basilar artery.Augmentation of the posterior circulation with right-sided prominentposterior communicating artery. Satisfactory peripheral brancharborization bilateral DERMATOLOGY TEACHER distribution. Mild stenoses bilateral DERMATOLOGY TEACHER P3and P4 level stable from 04/22/2023. DURAL VENOUS SINUSES: Expected enhancement of the major dural venoussinuses. NECK CTA: RIGHT CAROTID: Right endarterectomy procedural changes are new from priorCTA 04/22/2023. There is high-grade stenosis at the midportion of the stentwith coarse calcific plaque on either side of this area of high-gradestenosis probably 90- 95% in degree, seen maximal series 5 images 350-358.The length of stenosis is moderate. Distal to the stent within the rightICA there is no additional/tandem stenosis or dissection noted. LEFT CAROTID: Left endarterectomy procedural changes are new from CTA04/22/2023. At and proximal to the proximal aspect of the carotid stent,within the distal left common carotid artery endoluminal filling defect ispresent which should represent a small degree of adherent thrombus. Thisis seen series 5 images 270-275. This results in only mild hemodynamicstenosis proximal to the stent under 30%. Within the left ICA stent itselfthere is significant narrowing at the mid portion of the stent probablyresulting in 80%-90% hemodynamic stenosis maximally seen series 5 [id number]. Stenosis is tapered in morphology on both ends and is moderate inlength. The left ICA distal to the stent is slightly reduced in caliberrelative to the right also indicative of high-grade stenosis at themidportion of the stent. No dissection. VERTEBRAL ARTERIES: Short segment calcific plaque and stable high-gradestenosis left V4 segment about 80%. This is stable from prior CTA. Noadditional/new high-grade stenosis or dissection of the vertebral arterialaxis. Calcific plaque without stenosis near the left vertebral arterialorigin. Slight congenital dominant caliber of the right vertebral artery.V4 segments coalesce to form a reduced caliber basilar artery on acongenital basis. There is suggested proximal basilar arterialfenestration which represents normal developmental variation. AORTIC ARCH: Sternotomy. Prominent origin right innominate and left commoncarotid artery represents normal anatomic variation. Calcific plaque withmild origin stenoses at the right innominate, left common carotid arteryand proximal left subclavian artery 10-25% most marked at the proximalright innominate arterial level is stable from 04/22/2023. No progressivestenoses, high-grade stenosis or dissection is evident at the great vesselorigin level. NONVASCULAR STRUCTURES: No additional pathologic enhancementintracranially or within the orbits. Mucous retention cyst right maxillarysinus. Nasopharynx is patent. No mass or adenopathy within the neck softtissues. Thyroid is satisfactory. Hyoid bone and neck cartilage arenormal. No severe cervical spinal canal narrowing. Sternotomy. Lung apicesshow minimal apical blebs and fibrotic scarring. Degenerative changes inthe cervical spine with satisfactory height/alignment overall. IMPRESSION: HEAD CT: 1. No CT evidence for acute intracranial process. 2. Brain atrophy and presumed chronic microvascular ischemic changes asabove. Stable benign mineralization anterior falcine region at theinterhemispheric fissure level may represent stable benign falcinecalcification and/or densely calcified meningioma and should be of nocurrent clinical significance. 3. Increased partial opacification mid right ethmoid air cells from priorhead CT. 4. No other significant changes. HEAD CTA: 1. Stable appearance from CTA 04/22/2023 involving the [place]. Stable mild stenosis left cavernous and supra clinoid ICA. Stablemild stenoses bilateral DERMATOLOGY TEACHER distribution with no large vessel occlusion,high-grade stenosis, dissection, or aneurysm intracranially. There is someenhancement of calcified anterior interhemispheric midline mass whichshould represent a stable benign calcified meningioma of no clinicalsignificance. Dural venous sinus enhancement is normal. No additionalpathologic enhancement intracranially is evident. NECK CTA: 1. Since prior CTA 04/22/2023 interval procedural changes of bilateralendovascular carotid stent procedures. High-grade stenoses are presentwithin the stents at the midportion of the stents with moderate lengthstenoses overall. There is some reduction of caliber and degree ofenhancement within the left ICA within the remainder of the left ICAdistal to the stent also indicative of high-grade stenosis. No tandemstenoses or dissection distal to the ICA portion of the stentsbilaterally. Stable high-grade stenosis left vertebral arterial origins.Stable mild stenoses at the origins of the great vessels. No additionalpathologic enhancement in the neck. No dissection. Sternotomy. Gildardo HALL CT Fi nal Result * (ABNORMAL) Creatinine?? (12/08/2024 11:34 AM CDT) eGFR 69(L) >90 mL/min/1.7 3m2 12/08/2024 11:55 AM CDT [facility] Comment:As of 2021, eG FR is calculated by the CKD-EPI creatinine equation without race adjustment. eGFR can be influenced by muscle mass, exercise, and diet. The reported eGFR is an estimation only and is only applicable if the renal function is stable. CREATININE 1.10 0.70 - 1.20 mg/dL 12/08/2024 11:55 AM CDT [facility] Blood BLOOD SPECIMEN / Unknown IV Start / Unknown 12/08/2024 11:34 AM CDT 12/08/2024 11:37 AM CDT Gildardo HALL CHEMISTRY Fi nal Result [facility] [place] [address], * US ARTERIAL LOWER EXTREMITY BILATERAL (12/01/2024 11:41 AM CDT) Anatomical Region Laterality Modality LEGS, LEG L, LEG R Ultrasound 12/01/2024 9:57 AM CDT Narrative 12/02/2024 5:21 PM CDT VASCULAR ULTRASOUND REPORT NAHOMI SCHAFFER : 1945 Study Date: 12/01/2024 9:57:31 AM Age: 79 years Tech: [facility] Gender: M Referring MD: GILDARDO GARZA Site: [facility] Study performed: Lower extremity duplex US, (bilateral). Indication for study: Follow-up known PAD, Follow-up REPEATER CHIEF/stent/bypass Study Quality: Good TECHNIQUE: Lower/upper extremity arteries were examined per exam protocol by duplex ultrasound, color-flow and spectral Doppler. Peak systolic velocities (PSV), Doppler waveform quality, velocity ratios and vessel size in cm, were documented at protocol specific sites. Physiologic data including segmental pressures, ankle/brachial index (CHRISTINA), digit PPG recordings, laser Doppler flowmetry, transcutaneous oximetry, and digit temperatures were documented at sites per exam protocol and test requirements. IMPRESSION: 1. No evidence of significant lower extremity arterial inflow disease bilaterally. 2. Right external iliac artery distal through popliteal artery distal no hemodynamically significant stenosis. 3. 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 4. Moderate (50-74%) stenosis of the right posterior tibial artery mid. 5. Left superficial femoral artery proximal through mid is occluded. 6. Distal tibial arteries demonstrate monophasic flow bilaterally. COMPARISON: Compared to prior study 02/11/2024, Right tibioperoneal artery trunk is now occluded. FINDINGS: +--------+ + RIGHT Velocity cm/s +--------+ + EIA DST 87 +--------+ + DIESEL TRACTOR OPERATOR DST 173 +--------+ + PFA 165 +--------+ + SFA PRX 211 +--------+ + SFA MID 122 +--------+ + SFA DST 73 +--------+ + CLINT PRX 114 +--------+ + CLINT DST 72 +--------+ + TPT 237 0 +--------+ + REPEATER CHIEF PRX 72 +--------+ + REPEATER CHIEF MID 47 160 +--------+ + REPEATER CHIEF DST 51 +--------+ + LYLY DST 31 +--------+ + JUAQUIN DST 56 +--------+ + DPA 53 +--------+ + +--------+ + LEFT Velocity cm/s +--------+ + EIA DST 69 +--------+ + DIESEL TRACTOR OPERATOR DST 42 +--------+ + PFA 44 +--------+ + SFA PRX 0 +--------+ + SFA MID 0 -26 +--------+ + SFA DST 30 +--------+ + CLINT PRX 45 +--------+ + CLINT DST 37 +--------+ + TPT 64 +--------+ + REPEATER CHIEF DST 34 +--------+ + LYLY DST 10 +--------+ + JUAQUIN DST 33 +--------+ + DPA 28 +--------+ + Criteria: Stenosis V. Ratio Mild <50% <2.0 Moderate 50-74% > or = 2.0 Severe 75-99% > or = 4.0 Occluded 100% no detectable flow Jerome Campuzano MD. Electronically signed on 12/02/2024 5:21:17 PM This study was performed and interpreted by a service accredited by the [employer]reditation Commission (IAC/Vascular), [email or web address].org/vascular Report generated by [email or web address]. Final Procedure Note Jerome Campuzano MD - 12/02/2024 VASCULAR ULTRASOUND REPORT NAHOMI SCHAFFER : 1945 Study Date: 12/01/2024 9:57:31 AM Age: 79 years Tech: [facility] Gender: M Referring MD: GILDARDO GARZA Site: [facility] Study performed: Lower extremity duplex US, (bilateral). Indication for study: Follow-up known PAD, Follow-up REPEATER CHIEF/stent/bypass Study Quality: Good TECHNIQUE: Lower/upper extremity arteries were examined per exam protocol by duplexultrasound, color-flow and spectral Doppler. Peak systolic velocities(PSV), Doppler waveform quality, velocity ratios and vessel size in cm,were documented at protocol specific sites. Physiologic data includingsegmental pressures, ankle/brachial index (CHRISTINA), digit PPG recordings,laser Doppler flowmetry, transcutaneous oximetry, and digit temperatureswere documented at sites per exam protocol and test requirements. IMPRESSION: 1. No evidence of significant lower extremity arterial inflow diseasebilaterally. 2. Right external iliac artery distal through popliteal artery distal nohemodynamically significant stenosis. 3. 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 4. Moderate (50-74%) stenosis of the right posterior tibial artery mid. 5. Left superficial femoral artery proximal through mid is occluded. 6. Distal tibial arteries demonstrate monophasic flow bilaterally. COMPARISON: Compared to prior study 02/11/2024, Right tibioperoneal artery trunk is nowoccluded. FINDINGS: +--------+ + RIGHT Velocity cm/s +--------+ + EIA DST 87 +--------+ + DIESEL TRACTOR OPERATOR DST 173 +--------+ + PFA 165 +--------+ + SFA PRX 211 +--------+ + SFA MID 122 +--------+ + SFA DST 73 +--------+ + CLINT PRX 114 +--------+ + CLINT DST 72 +--------+ + TPT 237 0 +--------+ + REPEATER CHIEF PRX 72 +--------+ + REPEATER CHIEF MID 47 160 +--------+ + REPEATER CHIEF DST 51 +--------+ + LYLY DST 31 +--------+ + JUAQUIN DST 56 +--------+ + DPA 53 +--------+ + +--------+ + LEFT Velocity cm/s +--------+ + EIA DST 69 +--------+ + DIESEL TRACTOR OPERATOR DST 42 +--------+ + PFA 44 +--------+ + SFA PRX 0 +--------+ + SFA MID 0 -26 +--------+ + SFA DST 30 +--------+ + CLINT PRX 45 +--------+ + CLINT DST 37 +--------+ + TPT 64 +--------+ + REPEATER CHIEF DST 34 +--------+ + LYLY DST 10 +--------+ + JUAQUIN DST 33 +--------+ + DPA 28 +--------+ + Criteria: Stenosis V. Ratio Mild <50% <2.0 Moderate 50-74% > or = 2.0 Severe 75-99% > or = 4.0 Occluded 100% no detectable flow Jerome Campuzano MD. Electronically signed on 12/02/2024 5:21:17 PM This study was performed and interpreted by a service accredited by theIntersocietal Accreditation Commission (IAC/Vascular),[email or web address] Report generated by [employer]. Final us Gildardo HALL US Fi nal Result * US CAROTID DUPLEX BILATERAL (12/01/2024 11:41 AM CDT) Anatomical Region Laterality Modality CAROTID, NECK Ultrasound 12/01/2024 9:01 AM CDT Narrative 12/01/2024 11:34 PM CDT VASCULAR ULTRASOUND REPORT NAHOMI SCHAFFER : 1945 Study Date: 12/01/2024 9:01:17 AM Age: 79 years Tech: [facility] Gender: M Referring MD: GILDARDO GARZA Site: [facility] Study performed: Carotid Indication for Study: Stenosis of carotid artery TECHNIQUE: The extracranial carotid arteries, vertebral arteries and subclavian arteries were examined per exam protocol with duplex ultrasound, color-flow and spectral Doppler. Flow velocities including peak systolic (PSV), end diastolic (EDV), and velocity ratios if applicable were documented at sites per exam protocol. IMPRESSION: 1. Based on the ICA velocities, ICA/CCA ratio, and 2D images there is plaque causing >70% stenosis in the right internal carotid artery and there is plaque causing >70% stenosis in the left internal carotid artery. 2. Normal antegrade flow within bilateral vertebral arteries. 3. Multiphasic flow within bilateral subclavian arteries. 4. Patent bilateral internal carotid stents with a 80-99% in stent stenosis by ICA/CCA ratio criteria. COMPARISON: Compared to prior study 11/07/2023, Right in stent stenosis stable, Left velocities in stent have increased from 221 cm/s to 590 cm/s. RIGHT FINDINGS: Antegrade flow in the right vertebral artery. Normal multiphasic right subclavian artery flow. LEFT FINDINGS: Antegrade flow in the left vertebral artery. Normal multiphasic left subclavian artery flow. MEASUREMENTS: +--------+--------+------+--------+--------+ RIGHT RIGHT LEFT LEFT +--------+--------+------+--------+--------+ PSV cm/s EDV cm/s Vessel PSV cm/s EDV cm/s +--------+--------+------+--------+--------+ 104 11 P. CCA 41 13 +--------+--------+------+--------+--------+ 53 10 D. CCA 73 22 +--------+--------+------+--------+--------+ 126 35 P. ICA 464 129 +--------+--------+------+--------+--------+ 251 59 M. ICA 590 176 +--------+--------+------+--------+--------+ 149 29 D. ICA 65 26 +--------+--------+------+--------+--------+ 510 58 ECA 679 117 +--------+--------+------+--------+--------+ +-----+ +----+ RIGHT LEFT +-----+ +----+ 126 Subclavian Artery (cm/s) 218 +-----+ +----+ 57 Vertebral Artery (cm/s) 39 +-----+ +----+ 4.7 ICA/CCA Ratio 8.1 +-----+ +----+ +------+---------+ +--------+--------+--------+ STENT: Right PSV Right EDV cm/s Left PSV Left EDV cm/s cm/s cm/s +------+---------+ +--------+--------+--------+ 49 10 Pre 44 13 90 25 +------+---------+ +--------+--------+--------+ 76 26 PRX Edge 51 14 +------+---------+ +--------+--------+--------+ 107 29 PRX 82 25 +------+---------+ +--------+--------+--------+ 245 55 Mid 590 176 +------+---------+ +--------+--------+--------+ 180 22 DST 486 134 +------+---------+ +--------+--------+--------+ 144 31 DST Edge 95 30 +------+---------+ +--------+--------+--------+ 157 23 Post 68 26 +------+---------+ +--------+--------+--------+ Jerome Campuzano MD. Electronically signed on 12/01/2024 11:34:34 PM This study was performed and interpreted by a service accredited by the Intersocietal Accreditation Commission (IAC/Vascular), [email or web address] Report generated by [facility]. Final Procedure Note Jerome Campuzano MD - 12/01/2024 VASCULAR ULTRASOUND REPORT NAHOMI SCHAFFER : 1945 Study Date: 12/01/2024 9:01:17 AM Age: 79 years Tech: [facility] Gender: M Referring MD: GILDARDO GARZA Site: [facility] Study performed: Carotid Indication for Study: Stenosis of carotid artery TECHNIQUE: The extracranial carotid arteries, vertebral arteries and subclavianarteries were examined per exam protocol with duplex ultrasound,color-flow and spectral Doppler. Flow velocities including peak systolic(PSV), end diastolic (EDV), and velocity ratios if applicable weredocumented at sites per exam protocol. IMPRESSION: 1. Based on the ICA velocities, ICA/CCA ratio, and 2D images there isplaque causing >70% stenosis in the right internal carotid artery andthere is plaque causing >70% stenosis in the left internal carotidartery. 2. Normal antegrade flow within bilateral vertebral arteries. 3. Multiphasic flow within bilateral subclavian arteries. 4. Patent bilateral internal carotid stents with a 80-99% in stentstenosis by ICA/CCA ratio criteria. COMPARISON: Compared to prior study 11/07/2023, Right in stent stenosis stable, Leftvelocities in stent have increased from 221 cm/s to 590 cm/s. RIGHT FINDINGS: Antegrade flow in the right vertebral artery. Normal multiphasic rightsubclavian artery flow. LEFT FINDINGS: Antegrade flow in the left vertebral artery. Normal multiphasic leftsubclavian artery flow. MEASUREMENTS: +--------+--------+------+--------+--------+ RIGHT RIGHT LEFT LEFT +--------+--------+------+--------+--------+ PSV cm/s EDV cm/s Vessel PSV cm/s EDV cm/s +--------+--------+------+--------+--------+ 104 11 P. CCA 41 13 +--------+--------+------+--------+--------+ 53 10 D. CCA 73 22 +--------+--------+------+--------+--------+ 126 35 P. ICA 464 129 +--------+--------+------+--------+--------+ 251 59 M. ICA 590 176 +--------+--------+------+--------+--------+ 149 29 D. ICA 65 26 +--------+--------+------+--------+--------+ 510 58 ECA 679 117 +--------+--------+------+--------+--------+ +-----+ +----+ RIGHT LEFT +-----+ +----+ 126 Subclavian Artery (cm/s) 218 +-----+ +----+ 57 Vertebral Artery (cm/s) 39 +-----+ +----+ 4.7 ICA/CCA Ratio 8.1 +-----+ +----+ +------+---------+ +--------+--------+--------+ STENT: Right PSV Right EDV cm/s Left PSV Left EDV cm/s cm/s cm/s +------+---------+ +--------+--------+--------+ 49 10 Pre 44 13 90 25 +------+---------+ +--------+--------+--------+ 76 26 PRX Edge 51 14 +------+---------+ +--------+--------+--------+ 107 29 PRX 82 25 +------+---------+ +--------+--------+--------+ 245 55 Mid 590 176 +------+---------+ +--------+--------+--------+ 180 22 DST 486 134 +------+---------+ +--------+--------+--------+ 144 31 DST Edge 95 30 +------+---------+ +--------+--------+--------+ 157 23 Post 68 26 +------+---------+ +--------+--------+--------+ Jerome Campuzano MD. Electronically signed on 12/01/2024 11:34:34 PM This study was performed and interpreted by a service accredited by theIntersocietal Accreditation Commission (IAC/Vascular),[email or web address] Report generated by [facility]. Final Gildardo WHITE US Fi nal Result * US ANKLE BRACHIAL INDEX BILATERAL (12/01/2024 11:40 AM CDT) Anatomical Region Laterality Modality ANKLES, ANKLE L, ANKLE R Ultraso und 12/01/2024 10:0 7 AM CDT Narrative 12/02/2024 5:18 PM CDT VASCULAR ULTRASOUND REPORT NAHOMI SCHAFFER : 1945 Study Date: 12/01/2024 10:07:57 AM Age: 79 years Tech: [facility] Gender: M Referring MD: GILDARDO GARZA Site: [facility] Vascular [facility] Study performed: Lower extremity resting CHRISTINA, (bilateral). Indication for study: Follow-up known PAD TECHNIQUE: Lower/upper extremity arteries were examined per exam protocol by duplex ultrasound, color-flow and spectral Doppler. Peak systolic velocities (PSV), Doppler waveform quality, velocity ratios and vessel size in cm, were documented at protocol specific sites. Physiologic data including segmental pressures, ankle/brachial index (CHRISTINA), digit PPG recordings, laser Doppler flowmetry, transcutaneous oximetry, and digit temperatures were documented at sites per exam protocol and test requirements. IMPRESSION: 1. Bilateral ankle-brachial indices may be unreliable secondary to noncompressible arteries. 2. Bilateral toe brachial indices are abnormal suggesting the presence of arterial disease. Bilateral digit pressures suggest adequate perfusion for wound healing. 3. Normal and symmetric bilateral metatarsal pulse volume recordings. COMPARISON: Compared to prior study 02/11/2024, Left metatarsal pulse volume recording has improved. FINDINGS: Right ankle/brachial index is noncompressible. Abnormal toe brachial index on the right. Left ankle/brachial index is noncompressible. Abnormal toe brachial index on the left. Pressures +-----+ +--------+ +-----+ RIGHT (mmHg) LEFT (mmHg) +-----+ +--------+ +-----+ Index 219 Brachial 234 Index +-----+ +--------+ +-----+ NC >250 REPEATER CHIEF >250 NC +-----+ +--------+ +-----+ NC >250 DPA >250 NC +-----+ +--------+ +-----+ 0.42 99 Digit 1 97 0.41 +-----+ +--------+ +-----+ Jerome Campuzano MD. Electronically signed on 12/02/2024 5:18:47 PM This study was performed and interpreted by a service accredited by the Intersocietal Accreditation Commission (IAC/Vascular), [email or web address] Report generated by [facility]. Final Procedure Note Jerome Campuzano MD - 12/02/2024 VASCULAR ULTRASOUND REPORT NAHOMI SCHAFFER : 1945 Study Date: 12/01/2024 10:07:57 AM Age: 79 years Tech: [facility] Gender: M Referring MD: GILDARDO GARZA Site: [facility] Vascular [facility] Study performed: Lower extremity resting CHRISTINA, (bilateral). Indication for study: Follow-up known PAD TECHNIQUE: Lower/upper extremity arteries were examined per exam protocol by duplexultrasound, color-flow and spectral Doppler. Peak systolic velocities(PSV), Doppler waveform quality, velocity ratios and vessel size in cm,were documented at protocol specific sites. Physiologic data includingsegmental pressures, ankle/brachial index (CHRISTINA), digit PPG recordings,laser Doppler flowmetry, transcutaneous oximetry, and digit temperatureswere documented at sites per exam protocol and test requirements. IMPRESSION: 1. Bilateral ankle-brachial indices may be unreliable secondary tononcompressible arteries. 2. Bilateral toe brachial indices are abnormal suggesting the presence ofarterial disease. Bilateral digit pressures suggest adequate perfusion forwound healing. 3. Normal and symmetric bilateral metatarsal pulse volume recordings. COMPARISON: Compared to prior study 02/11/2024, Left metatarsal pulse volume recordinghas improved. FINDINGS: Right ankle/brachial index is noncompressible. Abnormal toe brachial indexon the right. Left ankle/brachial index is noncompressible. Abnormal toe brachial indexon the left. Pressures +-----+ +--------+ +-----+ RIGHT (mmHg) LEFT (mmHg) +-----+ +--------+ +-----+ Index 219 Brachial 234 Index +-----+ +--------+ +-----+ NC >250 REPEATER CHIEF >250 NC +-----+ +--------+ +-----+ NC >250 DPA >250 NC +-----+ +--------+ +-----+ 0.42 99 Digit 1 97 0.41 +-----+ +--------+ +-----+ Jerome Campuzano MD. Electronically signed on 12/02/2024 5:18:47 PM This study was performed and interpreted by a service accredited by theIntersocietal Accreditation Commission (IAC/Vascular),[email or web address] Report generated by [facility]. Final us Gildardo HALL Fi nal Result * CT CHEST PE STUDY (08/20/2023 4:19 PM SENIOR VISUAL DESIGNER) Anatomical Region Laterality Modality CHEST, THORAX, HEART Computed To mography 08/20/2023 4:19 PM SENIOR VISUAL DESIGNER Impressions 08/20/2023 4:25 PM SENIOR VISUAL DESIGNER 1. Moderate diffuse bronchial wall thickening, which can be seen with bronchitis and asthma 2. Negative for PE Narrative 08/20/2023 4:25 PM SENIOR VISUAL DESIGNER For Patients: As a result of the Century Cures Act, medical imaging exams and procedure reports are released immediately into your electronic medical record. You may view this report before your referring provider. If you have questions, please contact your health care provider. EXAM: CT CHEST PE STUDY LOCATION: [facility] DATE: 08/20/2023 INDICATION: shortness of breath, atrial fibrillation not on thinner COMPARISON: None. TECHNIQUE: CT chest pulmonary angiogram during arterial phase injection of IV contrast. Multiplanar reformats and MIP reconstructions were performed. Dose reduction techniques were used. CONTRAST: Omnipaque 350 70 mL FINDINGS: ANGIOGRAM CHEST: Pulmonary arteries are normal caliber and negative for pulmonary emboli. Normal caliber thoracic aorta with no aneurysm. Contrast bolus timing is inadequate for dissection detection. LUNGS AND PLEURA: Moderate diffuse bronchial wall thickening. Moderate paraseptal emphysema. Strand of scarring or atelectasis in the lingula. Scattered calcified right pleural plaques, likely from prior empyema or hemothorax. MEDIASTINUM/AXILLAE: Sternotomy and CABG. Transcatheter aortic valve replacement. Calcified mitral valve leaflets. CORONARY ARTERY CALCIFICATION: Moderate calcified atherosclerosis in the [place] sandy coronary arteries. UPPER ABDOMEN: Liver cysts. MUSCULOSKELETAL: Old right rib fractures. Mild degenerative change thoracic spine. Procedure Note Yao Allen MD - 08/20/2023 For Patients: As a result of the Cures Act, medical imagingexams and procedure reports are released immediately into your electronicmedical record. You may view this report before your referring provider.If you have questions, please contact your health care provider. EXAM: CT CHEST PE STUDY LOCATION: [facility] DATE: 08/20/2023 INDICATION: shortness of breath, atrial fibrillation not on thinner COMPARISON: None. TECHNIQUE: CT chest pulmonary angiogram during arterial phase injection ofIV contrast. Multiplanar reformats and MIP reconstructions were performed.Dose reduction techniques were used. CONTRAST: Omnipaque 350 70 mL FINDINGS: ANGIOGRAM CHEST: Pulmonary arteries are normal caliber and negative forpulmonary emboli. Normal caliber thoracic aorta with no aneurysm. Contrastbolus timing is inadequate for dissection detection. LUNGS AND PLEURA: Moderate diffuse bronchial wall thickening. Moderateparaseptal emphysema. Strand of scarring or atelectasis in the lingula.Scattered calcified right pleural plaques, likely from prior empyema orhemothorax. MEDIASTINUM/AXILLAE: Sternotomy and CABG. Transcatheter aortic valvereplacement. Calcified mitral valve leaflets. CORONARY ARTERY CALCIFICATION: Moderate calcified atherosclerosis in thenative coronary arteries. UPPER ABDOMEN: Liver cysts. MUSCULOSKELETAL: Old right rib fractures. Mild degenerative changethoracic spine. IMPRESSION: 1. Moderate diffuse bronchial wall thickening, which can be seen withbronchitis and asthma 2. Negative for PE María CHADW[facility] CT Final Resul t from Last 3 Months or Most Recently Relevant to Health Maintenance Insurance MEDICARE PB ONLY MEDICARE PART B HB ONLY MEDICARE PART A HB ONLY [facility] EMP HC MEDICARE PPS Advance Directives Documents on File Type Date Recorded Patient Electronic Transaction Implementer Expl anation Healthcare Directive 09/17/2023 023 * Full Code (Latest Code Status on File) Date Activated Date Inactivated Comments 01/15/2024 4:42 PM 01/15/2024 9:34 PM Question Answer Comments Code Status Discussion: Unable to Assess Preferences, Provider to review later * Full Code Date Activated Date Inactivated Comments 11/27/2023 11:21 AM 11/27/2023 6:12 PM Question Answer Comments Code Status Discussion: Unable to Assess Preferences, Provider to review later * Full Code Date Activated Date Inactivated Comments 10/06/2023 8:29 AM 10/07/2023 2:06 PM Question Answer Comments Code Status Discussion: Unable to Assess Preferences, Provider to review later * Full Code Date Activated Date Inactivated Comments 10/06/2023 8:29 AM 10/06/2023 8:29 AM Question Answer Comments Code Status Discussion: Unable to Assess Preferences, Provider to review later * Full Code Date Activated Date Inactivated Comments 09/23/2023 7:44 AM 09/23/2023 3:36 PM Question Answer Comments Code Status Discussion: Unable to Assess Preferences, Provider to review later Care Teams Employee Benefits Insurance Agent Relationship Specialty Start Date End Date Kelton Dillon DO [address] [place] [address] PCP - General Family Practice 07/31/21 Jerome Isbell MD [address] [facility] [address] [place] [address] Consulting Physician Cardiology - Interventional 02/26/23 Yelena Meraz, PharmD Pharmacist Medication Management Pharmacology 09/05/23 09/21/26
--- OUTSIDE RECORDS SUMMARY | 2024-12-28 17:00 | XMS_ITS | Encounter Summary ---
Author Organization [facility] Address [address] [place] [address] Care Team Providers Care Cash Register Repairer Name Role Phone Paz Mario MD Primary Care Provider [phone] Encounter Details Date Type Department Care Team (Late st Contact Info) Description 04/12/2002 [facility] Family [facility] [address] [place], [place] [phone] [place] [address] [place], [place] [phone] CHEST PAIN NOS; HYPERTENSION NOS Social History Tobacco Use Types Packs/Day Years Used Date Smoking Tobacco: Every Day Cigarettes 0.5 43 Smokeless Tobacco: Never Comments:10-12 cigarettes da irene Alcohol Use Standard Drinks/Week Comments No 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 Sex and Gender Information Value Date Recorded Sex Assigned at Not on file Legal Sex Male 3:57 AM CDT Gender Identity Not on file Sexual Orientation Not on file Occupation Industry Job Start Date Job End Date Retired Not on file Not on file Not on file documented as of this encounter Plan of Treatment Not on file documented as of this encounter Visit Diagnoses Diagnosis Chest pain, unspecified Unspecified essential hypertension (HRC) Unspecified essential hypertension documented in this encounter Additional Health Concerns Infection Onset Date Last Indicated Resolved Time R/O COVID19 11/20/2020 11/20/2020 11/20/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
--- OUTSIDE RECORDS SUMMARY | 2024-12-28 17:00 | XMS_ITS | Encounter Summary ---
Author Organization [facility] Address [address] [place] [address] Care Team Providers Care Testboard Operator Name Role Phone Paz Mario MD Primary Care Provider Encounter Details Date Type Department Care Team (Late st Contact Info) Description 05/07/2017 Correspondence [place] [facility] [id number] [place] [phone] [place] [address] [place] [address] APPLICATION FOR DISABILITY PARKING CERTIFICATE Social History Tobacco Use Types Packs/Day Years Used Date Smoking Tobacco: Some Days Cigarettes 0.5 43 Smokeless Tobacco: Never Comments:5 cigs a day Alcohol Use Standard Drinks/Week Comments No 10 (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 pu 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 Sex and Gender Information Value Date Recorded Sex Assigned at Not on file Legal Sex Male 3:57 AM CDT Gender Identity Not on file Sexual Orientation Not on file 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
--- OUTSIDE RECORDS SUMMARY | 2024-12-28 17:00 | XMS_ITS | Encounter Summary ---
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 Not on file Not on file documented as of this encounter Nursing Notes * Darryl Rolle CMA - 01/13/2017 11:26 AM CDT Letter sent to ptPal Rolle CMA 01/13/2017, 11:26 AM documented in this encounter Plan of Treatment Not on file documented as of this encounter Results * Sodium (03/04/2017 11:35 AM CDT) Sodium 140 136 - 145 mmol/L [facility] 03/04/2017 11:3 5 AM CDT 03/04/2017 11:37 AM CDT Narrative [facility] - 03/04/2017 3:51 PM CDT Performed at [facility], [address] [place] [address] Paz Mario MD LAB_1 Final Result Performing Organization Address [facility] Co de Phone Number [facility] [phone] * Potassium (03/04/2017 11:35 AM CDT) Potassium 4.7 3.5 - 5.1 mmol/L [facility] 03/04/2017 11:3 5 AM CDT 03/04/2017 11:37 AM CDT Narrative [facility] - 03/04/2017 3:51 PM CDT Performed at [facility], [address] [place] [address] Paz Mario MD LAB_1 Final Result Performing Organization Address [facility] Co de Phone Number [facility] [phone] documented in this encounter Visit Diagnoses Diagnosis Encounter for long-term (current) use of medications- Primary Encounter for long-term (current) use of other medications Pulmonary embolism, other Encounter for long-term (current) use of medications Encounter for long-term (current) use of other medications documented in this encounter Additional Health Concerns Infection Onset Date Last Indicated Resolved Time R/O COVID19 11/20/2020 11/20/2020 11/20/2020 8:46 PM 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
--- OUTSIDE RECORDS SUMMARY | 2024-12-28 17:00 | XMS_ITS | Encounter Summary ---
Author Organization [facility] Address [address] [place] [address] Care Team Providers Care Station Agent Name Role Phone Paz Mario MD Primary Care Provider Encounter Details Date Type Department Care Team (Late st Contact Info) Description 04/13/2002 [facility] [address] [place], [place] [phone] [place] [address] [place], [place] [phone] CHEST PAIN NOS Social History Tobacco Use Types Packs/Day [...] encounter Visit Diagnoses Diagnosis Chest pain, unspecified documented in this encounter Additional Health Concerns Infection Onset Date Last Indicated Resolved Time R/O COVID19 11/20/2020 11/20/2020 11/20/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
--- OUTSIDE RECORDS SUMMARY | 2024-12-28 17:00 | XMS_ITS | Encounter Summary ---
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 73m2 [facility] GFR, Est., If Black >60 >60 ml/min/1. 73m2 [facility] 05/07/2017 2:22 PM CDT 05/07/2017 2:23 PM CDT Narrative [facility] - 05/07/2017 7:03 PM CDT Performed at [facility], [address] [place], [place] [id number] us Paz Mario MD LAB_1 Final Result [facility] [phone] documented in this encounter Visit Diagnoses Diagnosis Encounter for long-term (current) use of medications- Primary Encounter for long-term (current) use of other medications Pulmonary embolism, other Encounter for long-term (current) use of medications Encounter for long-term (current) use of other medications Essential hypertension (HRC) Unspecified essential hypertension documented in this encounter Additional Health Concerns Infection Onset Date Last Indicated Resolved Time R/O COVID19 11/20/2020 11/20/2020 11/20/2020 8:46 PM FARM GENERAL MANAGER documented as of this encounter Care Teams Manufacturing Test Technician Relationship Specialty [place] [address] [place] [address] PCP - General Family Practice 06/03/12 documented as of this encounter
--- OUTSIDE RECORDS SUMMARY | 2024-12-28 17:00 | XMS_ITS | Encounter Summary ---
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 Not on file Not on file documented as of this encounter Plan of Treatment Not on file documented as of this encounter Visit Diagnoses Diagnosis Encounter for long-term (current) use of medications- Primary Encounter for long-term (current) use of other medications documented in this encounter Additional Health Concerns Infection Onset Date Last Indicated Resolved Time R/O COVID19 11/20/2020 11/20/2020 11/20/2020 8:46 PM EKG MONITOR documented as of this encounter Care Teams Motor Vehicle Parts Interpreter Relationship Specialty [place] [address] [place] [address] PCP - General Family Practice 06/03/12 documented as of this encounter
--- OUTSIDE RECORDS SUMMARY | 2024-12-28 17:00 | XMS_ITS | Encounter Summary ---
Author Organization [facility] Address [address] [place] [address] Care Team Providers Care School Psychometrist Name Role Phone Paz Mario MD Primary Care Provider [phone] Encounter Details Date Type Department Care Team (Late st Contact Info) Description 09/08/[address] [phone] [place] [address] [place] [address] MED EQUIPMENT PROOF OF DELIVERY Social History Tobacco Use Types Packs/Day Years Used Date Smoking Tobacco: Every Day Cigarettes 1 43 Smokeless Tobacco: Never Comments:variable smoking Alcohol Use Standard Drinks/Week Comments No 8.3 (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 p ure alcohol) sober 109 days Sex and Gender Information Value Date Recorded Sex Assigned at Not on file Legal Sex Male 3:57 AM CDT Gender Identity Not on file Sexual Orientation Not on file 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 Not on file Not on file documented as of this encounter Progress Notes * Paz Mario MD - 09/08/2012 12:00 AM CST E CUTTING MACHINE OPERATOR documented in this encounter Plan of Treatment Not on file documented as of this encounter Visit Diagnoses Not on filedocumented in this encounter Additional Health Concerns Infection Onset Date Last Indicated Resolved Time R/O COVID19 11/20/2020 11/20/2020 11/20/2020 8:46 PM SLICE CUTTING MACHINE OPERATOR documented as of this encounter Care Teams School Psychometrist Relationship Specialty [place] [address] [place] [address] PCP - General Family Practice 06/03/12 documented as of this encounter
--- OUTSIDE RECORDS SUMMARY | 2024-12-28 17:00 | XMS_ITS | Encounter Summary ---
Author Organization [facility] Address [address] [place] [address] Care Team Providers Care Media Arts Professor Name Role Phone Paz Mario MD Primary Care Provider [phone] Encounter Details Date Type Department Care Team (Latest Contact Info) Description 04/17/1998 Orders Only Angel Luis Cruz Social History Tobacco Use Types Packs/Day Years Used Date Smoking Tobacco: Never Assessed Sex and Gender Information Value Date Recorded Sex Assigned at Not on file Legal Sex Male 3:57 AM CDT Gender Identity Not on file Sexual Orientation Not on file documented as of this encounter Plan of Treatment Not on file documented as of this encounter Visit Diagnoses Not on filedocumented in this encounter Additional Health Concerns Infection Onset Date Last Indicated Resolved Time R/O COVID19 11/20/2020 11/20/2020 11/20/2020 8:46 PM METAL POURER documented as of this encounter Care Teams Media Arts Professor Relationship Specialty [place] [address] [place] [address] PCP - General Family Practice 06/03/12 documented as of this encounter
--- OUTSIDE RECORDS SUMMARY | 2024-12-28 17:00 | XMS_ITS | Encounter Summary ---
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
--- OUTSIDE RECORDS SUMMARY | 2024-12-28 17:00 | XMS_ITS | Encounter Summary ---
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
--- OUTSIDE RECORDS SUMMARY | 2024-12-28 17:00 | XMS_ITS | Encounter Summary ---
Author Organization [facility] Address [address], [place] [address] Care Team Providers Care Senior Design Engineering Specialist Name Role Phone Paz Mario MD Primary Care Provider [phone] Encounter Details Date Type Department Care Team (Latest Contact Info) Description 02/27/1998 Orders Only Kayleigh Hines MD [address] [place] [id number] Social History Tobacco Use Types Packs/Day Years [...] R/O COVID19 11/20/2020 11/20/2020 11/20/2020 8:46 PM ASSISTANT CORPORATE CONTROLLER documented as of this encounter Care Teams Senior Design Engineering Specialist Relationship Specialty [place] [address] [place] [address] PCP - General Family Practice 06/03/12 documented as of this encounter
--- OUTSIDE RECORDS SUMMARY | 2024-12-28 17:00 | XMS_ITS | Encounter Summary ---
Author Organization [facility] Address [address] [place] [address] Care Team Providers Care Fagot Heater Helper Name Role Phone Paz Mario MD Primary Care Provider Encounter Details Date Type Department Care Team (Late st Contact Info) Description 02/01/2015 Consent for Procedure/Treatme nt [facility] INFORMED CONSENT RECORD Social History Tobacco Use Types Packs/Day Years Used Date Smoking Tobacco: Every Day Cigarettes 0.5 43 Smokeless Tobacco: Never Comments:variable smoking Alcohol Use Standard Drinks/Week Comments No 8.3 (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 p ure alcohol) sober 5 years Sex and Gender Information Value Date Recorded Sex Assigned at Not on file Legal Sex Male 3:57 AM CDT Gender Identity Not on file Sexual Orientation Not on file 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
--- OUTSIDE RECORDS SUMMARY | 2024-12-28 17:01 | XMS_ITS | Encounter Summary ---
[facility] Address [address] [place] [address] Care Team Providers Care Interior Designer Name Role Phone Paz Mario MD Primary Care Provider [phone] Reason for Visit * Reason Comments Refill Encounter Details Date Type Department Care Team (Late st Contact Info) Description 11/28/2024 Refill [facility] Vascular Surgery 401 [facility]. [place], [place] [phone] Dudley Potts MD [address] [place] [phone] Refill Social History Tobacco Use Types Packs/Day Years Used Date Smoking Tobacco: Every Day Cigarettes 0.5 43 Smokeless Tobacco: Never Comments:10-12 cigarettes da irene Alcohol Use Standard Drinks/Week Comments No 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 PHQ-2 Answer Date Recorded PHQ-2 Score 0 06/07/2021 Sex and Gender Information Value Date Recorded [...] Diagnoses Not on filedocumented in this encounter Care Teams Interior Designer Relationship Specialty [place] [address] [place], [place] [id number] PCP - General Family Practice 06/03/12 documented as of this encounter
--- OUTSIDE RECORDS SUMMARY | 2024-12-28 17:01 | XMS_ITS | Encounter Summary ---
Author Organization [facility] Address [address] [address] Care Team Providers Care Remarketing Rep Name Role Phone Paz Mario MD Primary Care Provider Encounter Details Date Type Department Care Team (Late st Contact Info) Description 08/25/2005 [facility] [address] [place], [place] [phone] Alexandre Lawrence MD [address] [place], [place] [address] UNSTABLE ANGINA PECTORIS (Primary Dx) Social History Tobacco Use Types Packs/Day Years [...] as of this encounter Progress Notes * 08/25/2005 11:59 PM CSTOvernight unstable angina. Admitted via ER. Chest pain resolved with a single NTG SL. See hospital H&P. REVIEW OF PRIOR HISTORIES: Patient Active Problem List: ASCVD[429.2] TOBACCO USE DISORDER(aka SMOKER'S)[305.1] HYPERTENSION[401.9] HYPERLIPIDEMIA (MIXED)(aka LIPID)[272.2] PSORIASIS[696.1] LOW BACK PAIN (CHRONIC)[724.9] Current medications: ASPIRIN EC 81 MG OR TBEC,Take 1 tablet by mouth once a day as directed ATENOLOL 50 MG OR TABS,1 TABLET DAILY for BP HYDROCHLOROTHIAZIDE 50 MG OR TABS,1 TABLET EVERY MORNING by BP LIPITOR 80MG ORAL TABS,1/2 tablet (40 mg) each bed time for cholesterol Review of patient's allergies indicates: Nka Immunization History: Influenza (3+years) 08/08/2003 Td 09/21/1980 10/03/1997 Review of patient's past medical history indicates: VARICELLA UNCOMPLICATED Childhood ASCVD 11/16/2000 Comment: Non-Q wave MO 11/16/00, followed by angioplasty with stent. HYPERTENSION 08/08/2003 HYPERLIPIDEMIA (MIXED)(aka LIPID) 08/08/2003 Comment: Should get LDLs below 100 with Hx of MO Review of patient's past surgical history indicates: ANGIOPLASTY 10/23 Comment: Has stent and this followed a non-Q MO Review of patient's family history indicates: Asthma Mother Comment: Severe, at 70 Cancer, Colon Negative Family Histo Cancer, Other Father Comment: Question type Coronary Artery Disease Brother Comment: Onset in late 60s Diabetes, Type II Negative Family Histo Hypertension Negative Family Histo Social History Marital Status: Spouse Name: NA Years of Education: 12 Number of children: 2 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 in 1999 but still sees at least three times weekly, only live three blocks apart. Works for [employer] Last 3 BP Readings: Date: BP: 05/17/2005 138/66 02/28/2004 150/88 12/30/2003 150/76 Last VS: 05/17/2005 Ht 6' 1 Wt 218.00 sys 138 garza 66 BP 138/66 BMI 28.76 PULSE 68 Most recent labs: Component Reference Range 05/17/2005 Cholesterol <200 mg/dl 232 (H) Triglyceride <200 mg/dl 176 HDL >35 mg/dl 42 LDL, Calc. <100 mg/dl 155 Hours Fastin Creatinine 0.6-1.3 mg/dl 0.8 GFR, Estimated >60 ml/min/1.73m2 >80.0 Glucose 70-100 mg/dl 79 AST (SGOT) <45 U/L 23 CK, Total 29-235 U/L 238 (H) Potassium 3.5-5.3 mmol/L 4.1 Prostatic Spec Ag 0-3.5 ng/ml 0.61 MYOCARDIAL PERFUSION IMAGING REST/STRESS STUDY WITH GATING 08/22/03: Tc-99m Sestamibi Indication: History of coronary artery disease. This test done to evaluatechest pain. Procedure: Approximately 1 hour(s) following the injection of 13.5 mCi of Tc-99m Sestamibi, SPECT images of the heart were obtained.Subsequently, the patient underwent treadmill exercise to the following parameters: Predicted maximum heart rate: Achieved maximum heart rate: 148 beats per minute Percent maximum achieved: 91 % Duration of exercise: 8 minutes on a Aníbal protocol At peak stress, the patient was injected with 40.5 mCi of Tc-99m Sestamibi followed by repeat SPECT imaging approximately 1 hour later. Gated images were obtained. Interpretation/Findings: TOMOGRAPHIC RESULTS: On the stress images, there is a small to moderate sized inferior wall defect extends from base throughdistal wall. This has a mild to moderate count reduction. Likewise on the rest images, this defect is predominantly fixed. There is artifact on the rest images of a bowel loop adjacent to the inferior, inferolateral wall. There is also a very tiny apical defect noted on both the rest and stress images which is fixed and most consistent with artifact. There are no reversible perfusiondefects to suggest ischemia. Gating, normal wall thickening. Ejection fraction normal at 60%. Impression: 1. Myocardial perfusion imaging using Tc 99m Sestamibi demonstratesa fixed inferior wall defect which is most consistent with inferior/diaphragmatic attenuation. 2. There are no significant reversible perfusion defects to suggest ischemia. 3. Left ventricular size normal. 4. Gating, normal wall thickening and wall motion. 5. The ejection fraction is normal at 60%. documented in this encounter Plan of Treatment Not on file documented as of this encounter Visit Diagnoses Diagnosis UNSTABLE ANGINA PECTORIS- Primary Other and unspecified angina pectoris documented in this encounter Additional Health Concerns Infection Onset Date Last Indicated Resolved Time R/O COVID19 11/20/2020 11/20/2020 11/20/2020 8:46 PM TRIM DIE MAKER documented as of this encounter Care Teams Remarketing Rep Relationship Specialty [place] [address] [place] [address] PCP - General Family Practice 06/03/12 documented as of this encounter
--- OUTSIDE RECORDS SUMMARY | 2024-12-28 17:01 | XMS_ITS | Encounter Summary ---
Author Organization [facility] Address [address] [place] [address] Care Team Providers Care Binder And Box Builder Name Role Phone Paz Mario MD Primary Care Provider [phone] Encounter Details Date Type Department Care Team (Latest Contact Info) Description 11/18/2000 Hospital Brannon Latif MD [facility] HOSPITALIST [address] [place] [address] Social History Tobacco Use Types Packs/Day Years [...] as of this encounter Progress Notes * Brannon Latif - 11/18/2000 12:00 AM CSTDiagnosis Requiring Admission: 1. Small non-Q-wave CO. Hospital Course: Please see dictated history and physical from Dr.Burke Ignacio dated yesterday. I also refer you to a dictated history and physical from [facility] dated the . This 55-year old smoker with a bad family history presented with chest pain on the and was admitted to [facility] where he was seen to have a slight striponen leak 2.0. His chest pain was immediately relieved with nitroglycerin. He was transferred here for further evaluation and angiography. He underwent an angiogram on the . Final results are pending and I refer you to the procedure note from for further details. However, this patient does have coronary disease and underwent a PT CA stent of the LAD. He tolerated this well and had 24 hours of Integrelin. Subsequently he ambulated with cardiac re-habilitation and did quite well. He had hyperlipidemia at [facility] and I am starting him on Zocor . In addition he's been started on an aspirin a day and one month of Plavix. He's also been started on a betablocker. He will follow without patient cardiac rehabilitation and the smoking cessation counselor at [place]. He will follow up at [place] to establish a primary physician in one week. Will also follow up with cardiology in a month. If he's having further discomfort, he's encouraged to return urgently. Discharge Meds are as Follows: Aspirin 325 a day Atenolol 25mg q.d. Plavix 75mg q.d. x one month Zocor 20mg q.d. Nitroglycerine 0.4mg sublingual prn Chest pain cc: Klever Elizabeth MD ING AND POINT ASSEMBLY SUPERVISOR documented in this encounter Plan of Treatment Not on file documented as of this encounter Visit Diagnoses Not on filedocumented in this encounter Additional Health Concerns Infection Onset Date Last Indicated Resolved Time R/O COVID19 11/20/2020 11/20/2020 11/20/2020 8:46 PM PLATING AND POINT ASSEMBLY SUPERVISOR documented as of this encounter Care Teams Binder And Box Builder Relationship Specialty [place] [address] [place] [address] PCP - General Family Practice 06/03/12 documented as of this encounter
--- OUTSIDE RECORDS SUMMARY | 2024-12-28 17:01 | XMS_ITS | Encounter Summary ---
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 Not on file Not on file documented as of this encounter Progress Notes * RADIOLOGY, PROVIDER - 01/24/2012 12:00 AM CDT documented in this encounter Plan of Treatment Not on file documented as of this encounter Visit Diagnoses Not on filedocumented in this encounter Additional Health Concerns Infection Onset Date Last Indicated Resolved Time R/O COVID19 11/20/2020 11/20/2020 11/20/2020 8:46 PM BACK ROLLER documented as of this encounter Care Teams Asphalt Distributor Tender Relationship Specialty [place] [address] [place] [address] PCP - General Family Practice 06/03/12 documented as of this encounter
--- OUTSIDE RECORDS SUMMARY | 2024-12-28 17:01 | XMS_ITS | Clinical Summary ---
Author Organization [facility] Address [address] [address] Care Team Providers Care Brassiere Cup Mold Cutter Name Role Phone Paz Mario MD Primary Care Provider [phone] Source Comments You are receiving this document as you are listed as the primary care provider,follow-up provider, or the patient has been referred to you for consultation.This is in compliance with the Medicare and[facility] EHR Incentive Program,which states Providers who transition their patient to another setting of careor provider of care or refers their patient to another provider of care shouldprovide summary care record for each transition of care or referral. [facility] Allergies No known active allergies Medications * This document contains information received from the source organization and may not represent a complete record from that organization. 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 90 Tab 0 02/12/20 12 Active aspirin 81 MG chewable tabletIndications :Coronary Artery Bypass Graft Chew and swallow 1 Tablet by mouth daily. Indications: Coronary Bypass Surgery 100 Tablet 3 02/22/20 20 Active nitroglycerin (NITROSTAT) 0.4 MG sublingual tablet One tablet under tongue every 5 minutes as needed for chest pain 25 Tablet 11 05/23/20 20 Active metoprolol tartrate (LOPRESSOR) 100 MG tablet TAKE 1 TABLET BY MOUTH TWICE A DAY 180 Tablet 3 07/17/20 21 Active clopidogrel (PLAVIX) 75 MG tablet TAKE 1 TABLET BY MOUTH DAILY. 90 Tablet 3 09/23/19 22 Active furosemide (LASIX) 20 MG tablet Take 1 Tablet (20 mg) by mouth two times a day. 11/19/19 22 Active traZODone (DESYREL) 50 MG tablet Take 1 Tablet (50 mg) by mouth daily at bedtime. 11/06/19 22 Active ferrous gluconate (FERGON) 324 (38 Fe) MG tabletIndications :Anemia, unspecified type TAKE 1 TABLET BY MOUTH EVERY DAY WITH BREAKFAST 90 Tablet 12/12/19 22 Active metFORMIN (GLUCOPHAGE) 500 MG tabletIndications :Diabetes mellitus type II (HRC) TAKE 1 TABLET BY MOUTH EVERY DAY 90 Tablet 03/06/20 22 Active lisinopril (ZESTRIL) 10 MG tablet TAKE 1 TABLET BY MOUTH EVERY DAY 90 Tablet 03/15/20 22 Active rosuvastatin (CRESTOR) 40 MG tablet Take 1 Tablet (40 mg) by mouth daily. Active cephalexin (KEFLEX) 500 MG capsule Take 1 Capsule (500 mg) by mouth 4 times a day. 03/10/20 23 Active ezetimibe (ZETIA) 10 MG tablet Take 1 Tablet (10 mg) by mouth daily. 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 12/08/2020 PAD (peripheral artery disease) 12/04/2020 Overview (12/29/2020): Added automatically from request for surgery [id number] Cellulitis 11/21/2020 PAF (paroxysmal atrial fibrillation) 02/22/2020 Coronary artery disease 01/31/2020 Overview (01/31/2020): Added automatically from request for surgery [id number] Arterial insufficiency of lower extremity 2017 Overview (09/01/2018): Added automatically from request for surgery [id number] Ulcer of left lower extremity 07/08/2018 Peripheral vascular disease 04/23/2016 Overview (06/06/2016): R PAMELA stent, R SFA FULL STACK NET DEVELOPER 01/2012 R TUCKPOINTER CLEANER CAULKER endart 01/2015 Other emphysema 01/25/2015 Atherosclerosis of manzanita artery of extremity Overview (06/22/2015): [facility] Alcohol dependence 05/10/2010 Overview (05/10/2010): In early recovery Pulmonary embolus 04/30/2009 Overview (05/04/2009): PE 04/30/09 [facility] Other psoriasis 08/25/2005 Overview (05/14/2017): PSORIASIS Tobacco use disorder 08/08/2003 Overview (05/14/2017): TOBACCO USE DISORDER(aka SMOKER'S) Essential hypertension 08/08/2003 Overview (06/22/2015): [facility] Mixed hyperlipidemia 08/08/2003 Overview (05/14/2017): Should get LDLs below 100 with Hx of WA ; HYPERLIPIDEMIA (MIXED)(aka LIPID) Cardiovascular disease 11/16/2000 Overview (06/22/2015): Non-Q wave WA 11/16/00, followed by angioplasty with stent. [facility] Gout Resolved Problems Problem Noted Date Diagnosed Date Resolved Date Wound of ankle, initial encounter 12/08/2020 06/07/2021 CAREPLAN: ANTI-COAGULATION 05/04/2009 1 10/20/2020 Overview (01/15/2021): [id number] score=4 Corinna Leon [facility] 01/15/2021 8:41 AM Careplan for Obie Luis Diagnoses: PE (04/30/09, 09/2009 while on warfarin), PAF Therapeutic range: 2- 3. Warfarin pill strength: 5mg. Initiation date (AKA date when started on warfarin): 04/30/09. Length of treatment: long-term. 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 ; LOW BACK PAIN (CHRONIC) Encounters Date Type Department Care Team Description 11/28/2024 Refill [facility] V[facility] Surgery [address] [place] [address] Dudley Potts MD Refill 11/08/2024 Orders Only HIM DEPARTMENT Provider, MD Hazel from Last 3 Months Immunizations Immunization Administration Dates Next Due Flu Vac (3+ yrs) 06/27/2011, 0,09/28/2009,2007,08/08/2003 Influenza IIV3 (Trivalent) F elida Highdose, 65+ Yrs (03467) 07/07/2019 Influenza IIV4 (Quadrivalent ) 0.5mL (20375) 11/21/2020(Deferred: Patient Refused) Moderna Monovalent 12+ 12/27/2020,11/28/2020 PCV13 (Prevnar) 07/07/2019 PPSV23 (Pneumovax) 05/10/2010 Td 10/03/1997,09/21/1980 Tdap 06/10/2007 Family History Medical History Relation Name Comments Cancer, Prostate Father Heart Attack Father x2 with stent p lacements Asthma Mother Severe, at 70 Cancer, Lung Mother Cataract Mother Diabetes Mother Other Brother 1 Adopted Coronary Artery Disease Brother 2 Onse t in late 60s Allergies Brother 3 Pan Seasonal Arthritis Brother 3 Pan Other Brother 3 aPn Lost leg in mop torcycle accident No Known Problems Daughter 1 Ruchi No Known Problems Daughter 2 Tanya Other Sister Adopted Cancer, Colon Negative Family History Diabetes, Type II Negative Family History Hypertension Negative Family History Relation Name Status Comments Father (Age 91) Mother (Age 70) Brother 1 Alive 3 brothers Brother 2 Brother 3 Pan Alive Daughter 1 Ruchi Alive Born 1980 Daughter 2 Tanya Alive Born 1985 Sister Alive Born 1948 Social History Tobacco Use Types Packs/Day Years Used Date Smoking Tobacco: Every Day Cigarettes 0.5 43 Smokeless Tobacco: Never Tobacco Cessation:Ready to Q uit: No; Counseling Given: No Comments:10-12 cigarettes daily Alcohol Use Standard Drinks/Week Comments No 0 [...] file Not on file Not on file Last Filed Vital Signs Vital Sign Reading Time Taken Comments Blood Pressure 138/70 11/09/2021 3:00 PM ALIGNER BARREL AND RECEIVER Pulse 66 11/09/2021 3:00 PM ALIGNER BARREL AND RECEIVER Temperature 36.6 C (97.8 F) 11/09/2021 3:00 PM ALIGNER BARREL AND RECEIVER Respiratory Rate 14 11/09/2021 3:00 PM ALIGNER BARREL AND RECEIVER Oxygen Saturation 98% 11/09/2021 3:00 PM ALIGNER BARREL AND RECEIVER Inhaled Oxygen Concentration - - Weight 103.6 kg (228 lb 6.4 oz) 03/17/2023 9:38 AM CDT Height 185.4 cm (6' 1) 03/17/2023 9:38 AM CDT Body Mass Index 30.13 03/17/2023 9:38 AM CDT Plan of Treatment Health Maintenance Due Date Last Done Comments Hep C Screening (Preventive Services) 1945 Zoster/Shingles (1 of 2) 1997 Colonoscopy 06/01/2015 06/01/2010, 05/23 (Historical Completion) Diabetes: Foot Exam 07/07/2020 07/07/2019, 05/24/2015, 03/29/2014, Additional history exists Diabetes: Urine Microalbumin 07/07/2020, 03/18/2018, 05/07/2017, Additional history exists RSV (1 - 1-dose 75+ series) 2022 Medicare Annual Wellness Visit 06/07/2022 06/07/2021 Diabetes: HGBA1C 12/05/2022 06/07/2022, , 06/07/2021, Additional history exists Diabetes: Creatinine 01/29/2023 01/29/2022, 09/19/2021, 09/18/2021, Additional history exists COVID-19 Vaccine (3 - season) 2024 12/27/2020, 11/28/2020 Influenza (#1) 2024 07/07/2019, 02/2011, 06/29/2010, Additional history exists Pneumococcal 50+ Yrs (3 of 3 - PCV) 07/07/2024 07/07/2019, 05/10/2010 Diabetes: Eye Exam 11/08/2025 11/08/2024, 0 10/07/2018 (Completed), 01/03/2012, Additional history exists Diabetes: Lipid Panel 06/07/2026 06/07/2021 , 07/20/2020, 01/26/2020, Additional history exists DTaP/Tdap/Td (3 - Tdap) 05/13/2032 05/13/20, 06/10/2007, 10/03/1997, Additional history exists HepA Aged Out No longer eligi ble based on patient's age to complete this topic HepB Aged Out No longer eligi ble based on patient's age to complete this topic Hib Aged Out No longer eligi ble based on patient's age to complete this topic IPV (Polio) Aged Out No longer eligi ble based on patient's age to complete this topic MCV4 Aged Out No longer eligi ble based on patient's age to complete this topic Meningococcal B Aged Out No longer el igible based on patient's age to complete this topic Medical Devices Implanted Type Area Keeper Head Device Identifier Shelf Expiration Date Model / Serial / Lot Vein Saphenous 60-69cm - [id number] Implanted:Qt y: 1 on 01/11/2021 by Dudley Potts MD at [facility] BIOLOGIC Right: LEG [employer] 03/20/2027 [id number] 60-69CM / [id number] / Stent Omnilink Elite 859/80 - [id number] Implanted:Qt y: 1 on 09/24/2018 by Dudley Potts MD at [facility] DEVICE Left: OTHER-SEE DESCRIPTION [employer] 11/19/2021 [id number] / / [id number] Description:LEFT EXTERNAL IL LIAC ARTERY Stent Omnilink Elite- 021 Implanted:Qt y: 1 on 01/11/2021 by Dudley Potts MD DEVICE Right: LEG [employer] 06/21/2023 / / [id number] Description:Stent to right e xternal iliac artery Omnilik Elite 8.0mm X 39mm Implanted:Qt y: 1 on 09/18/2021 by Dudley Potts MD at [facility] DEVICE 10/22/2024 [id number] / / [id number] S0.8p8 - [id number] Implanted:Qt y: 1 on 02/01/2015 by Fredi Steven MD at [facility] XENOGRAFT Right: LEG [employer] 09/21/2017 E0.8P8 / 0.8P8 / [id number] Admedus Vascucel 1 X 14 Cm Implanted:Qt y: 1 on 09/24/2018 by Dudley Potts MD at [facility] XENOGRAFT Left: OTHER-SEE DESCRIPTION 05/29/2019 [id number] / / [id number] Description:FEMORAL ARTERY Procedures Procedure Name Priority Date/Time Associated Diagnosis Comments LOCO (DIABETIC EYE EXAM) 11/08/2024 CREATININE/GFR, WB POC Routine 01/29/2022 10:50 AM CDT LIPID PANEL & DIRECT LDL (IF NEEDED) Routine 06/07/2021 1:48 PM CDT Cardiovascular disease HGB A1C Routine 06/07/2021 1:48 PM CDT Type 2 diabetes mellitus without complication, without long-term current use of insulin (HRC) Type 2 diabetes mellitus with diabetic ulcer of lower extremity (HRC) ALBUMIN/CREAT RATIO Routine 07/07/2019 1 1:19 AM CDT Type 2 diabetes mellitus without complication, without long-term current use of insulin (HRC) COLONOSCOPY S 06/01/2010 12:00 AM CDT from Last 3 Months or Most Recently Relevant to Health Maintenance Results * LOCO (DIABETIC EYE EXAM) (11/08/2024) us Interface Provider MD DUMMY/OTHER/AR Final Resu lt * Creatinine/GFR, WB POC (01/29/2022 10:50 AM CDT) Creatinine, Whole Blood 1.2 0.7 - 1.2 mg/dL 01/29/2022 10:57 AM CDT [facility] GFR, Estimated >60 >60 mL/min/1.7 3m2 01/29/2022 10:57 AM CDT [facility] Performing Location [facility] 01/29/2022 10:57 AM CDT [facility] Blood 01/29/2022 10:5 0 AM CDT 01/29/2022 10:57 AM CDT us Dudley Potts MD LAB_1 Final Result [facility] [address] [phone] * (ABNORMAL) Lipid Panel and Direct LDL(If Needed) (06/07/2021 1:48 PM CDT) Cholesterol 135 0 - 199 mg/dL 06/07/2021 6:42 PM CDT [facility] Triglyceride 154(H) <=149 mg/dL 06/07/2021 6:42 PM CDT [facility] HDL Cholesterol 30(L) >=40 mg/dL 06/07/2021 6:42 PM CDT [facility] LDL, Calculated 74 <130 mg/dL 06/07/2021 6:42 PM CDT [facility] Non HDL Chol, Calculated 105 <=159 mg/dL 06/07/2021 6:42 PM CDT [facility] Cholesterol/HDL Ratio 4.5 06/07/2021 6:42 PM CDT [facility] Hours Fasting 12 06/07/2021 6:42 PM CDT [facility] Blood Venipuncture / Unknown 06/07/2021 1:48 PM CDT 06/07/2021 1:48 PM CDT us Kojo Wing MD LAB_1 Final Result Performing Organization Address [facility] Co de Phone Number [facility] [address] [address], [facility] [phone] [facility] [address] [place] [address], [facility] [phone] * (ABNORMAL) Hgb A1C (06/07/2021 1:48 PM CDT) Hemoglobin A1C 6.5(H) <=5.6 % 06/07/2021 7:21 PM CDT [facility] Blood Venipuncture / Unknown 06/07/2021 1:48 PM CDT 06/07/2021 1:48 PM CDT Narrative [facility] - 06/07/2021 7:21 PM CDT For patients not previously diagnosed with diabetes: 5.7-6.4%: Increased risk for diabetes 6.5% and greater: Diagnostic for diabetes For patients diagnosed with diabetes: <8.0%: Goal of therapy for ages 18-75 Clinicians may recommend a higher or lower goal for specific individuals. us Kojo Wing MD LAB_1 Final Result Performing Organization Address [facility] Co de Phone Number [facility] [address] [address], [facility] [phone] * Microalbumin/Creatinine Ratio (07/07/2019 11:19 AM CDT) Albumin, Urine, Random 44.5 mg/L 07/07/2019 4:03 PM CDT [facility] Creatinine, Urine, Random 200 >20 mg/dL 07/07/2019 4:03 PM CDT [facility] Albumin/Creati nine Ratio, Urine, Random 22 <30 mg/g 07/07/2019 4:03 PM CDT [facility] Urine,random 07/07/2019 11:1 9 AM CDT 07/07/2019 11:19 AM CDT us Paz Mario MD LAB_1 Final Result [facility] [address] [address] [phone] * COLONOSCOPY S (06/01/2010 12:00 AM CDT) 06/01/2010 Narrative [facility], Provider - 06/01/2010 12:00 AM CDT us Feli Clark MD DUMMY/OTHER/AR Final Resul t from Last 3 Months or Most Recently Relevant to Health Maintenance Insurance MEDICARE MEDICARE BCBS FEDERAL MEDICARE BCBS FEDERAL Advance Directives * Full Code (Latest Code Status on File) Date Activated Date Inactivated Comments 11/09/2021 9:57 AM 11/10/2021 10:44 AM * Full Code Date Activated Date Inactivated Comments 09/18/2021 7:50 PM 09/23/2021 1:10 PM * Full Code Date Activated Date Inactivated Comments 06/21/2021 6:09 PM 06/26/2021 1:57 PM * Full Code Date Activated Date Inactivated Comments 01/10/2021 6:35 PM 01/14/2021 12:05 PM * Full Code Date Activated Date Inactivated Comments 11/20/2020 9:47 PM 11/23/2020 8:35 PM Care Teams Brassiere Cup Mold Cutter Relationship Specialty [place] [address] [place] [address] PCP - General Family Practice 06/03/12
--- OUTSIDE RECORDS SUMMARY | 2024-12-28 17:01 | XMS_ITS | Encounter Summary ---
Author Organization [facility] Address [address], [place] [address] Care Team Providers Care Screen Making Technician Name Role Phone Paz Mario MD Primary Care Provider [phone] Encounter Details Date Type Department Care Team (Latest Contact Info) Description 04/21/1995 Orders Only Brannon Coulter [place] [address], [place] [address] Social History Tobacco Use Types Packs/Day Years [...] R/O COVID19 11/20/2020 11/20/2020 11/20/2020 8:46 PM ED PHYSICIANS documented as of this encounter Care Teams Screen Making Technician Relationship Specialty [place] [address] [place] [address] PCP - General Family Practice 06/03/12 documented as of this encounter
--- OUTSIDE RECORDS SUMMARY | 2024-12-28 17:01 | XMS_ITS | Encounter Summary ---
Author Organization [facility] Address [address] [place] [address] Care Team Providers Care Geoscience Laboratory Technician Name Role Phone Paz Mario MD Primary Care Provider [phone] Encounter Details Date Type Department Care Team (Latest Contact Info) Description 05/07/1996 Orders Only Brannon Gil Social History Tobacco Use Types Packs/Day Years [...] R/O COVID19 11/20/2020 11/20/2020 11/20/2020 8:46 PM TELECOMMUNICATIONS MANAGER documented as of this encounter Care Teams Geoscience Laboratory Technician Relationship Specialty [place] [address] [place] [address] PCP - General Family Practice 06/03/12 documented as of this encounter
--- OUTSIDE RECORDS SUMMARY | 2024-12-28 17:01 | XMS_ITS | Encounter Summary ---
Author Organization [facility] Address [address], [place] [address] Care Team Providers Care Recording Studio Setup Worker Name Role Phone Paz Mario MD Primary Care Provider [phone] Encounter Details Date Type Department Care Team (Latest Contact Info) Description 10/14/1994 Orders Only Kayleigh Hines MD [address] [place] [id number] Social History Tobacco Use Types Packs/Day Years [...] R/O COVID19 11/20/2020 11/20/2020 11/20/2020 8:46 PM AUTOMOTIVE PARTS COUNTER PERSON documented as of this encounter Care Teams Recording Studio Setup Worker Relationship Specialty [place] [address] [place] [address] PCP - General Family Practice 06/03/12 documented as of this encounter
--- OUTSIDE RECORDS SUMMARY | 2024-12-28 17:01 | XMS_ITS | Encounter Summary ---
Author Organization [facility] Address [facility] 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 No / Unsure 06/28/2021 1:11 PM CDT documented as of this encounter Plan of Treatment Not on file documented as of this encounter Visit Diagnoses Not on filedocumented in this encounter Care Teams Writing Center Director Relationship Specialty [place] [address] [place], [place] [id number] PCP - General Family Practice 01/25/15 03/08/23 [facility] [address] [place], [place] [id number] PCP - General 03/09/23 Jamil Alvarado DPM [address] [address] Assigned Musculoskeletal Provider 12/31/20 06/28/22 documented as of this encounter
--- OUTSIDE RECORDS SUMMARY | 2024-12-28 17:01 | XMS_ITS | Clinical Summary ---
Author Organization [facility] Address [facility] [place] [address] Care Team Providers Care Corn Press Operator Name Role Phone Clinic, [facility] Primary Care Provide r Allergies No known active allergies Medications HYDROcodone-acet aminophen (NORCO) 5-325 MG tablet Take 1 tablet by mouth every 6 hours as needed for severe pain 10 tablet 11/14/2020 Active Social History Tobacco Use Types Packs/Day Years Used Date Smoking Tobacco: Every Day Cigarettes Tobacco Cessation:Ready to Q uit: No; Counseling Given: Yes Adolescent Education Answer Date Record ed Getting School Help Needed Not on file 07/06 Sex and Gender Information Value Date Recorded Sex Assigned at Not on file Legal Sex Male 3:25 AM SALES EXEC Gender Identity Not on file Sexual Orientation Not on file Last Filed Vital Signs Vital Sign Reading Time Taken Comments Blood Pressure 186/81 2023 6:07 PM CDT Pulse 53 2023 6:07 PM CDT Temperature 36.6 C (97.9 F) 2023 11:45 AM CDT Respiratory Rate 20 2023 11:45 AM CDT Oxygen Saturation 98% 2023 5:37 PM CDT Inhaled Oxygen Concentration - - Weight 103.4 kg (228 lb) 2023 11:45 AM CDT Height 185.4 cm (6' 1) 2023 11:45 AM CDT Body Mass Index 30.08 2023 11:45 AM CDT Plan of Treatment Health Maintenance Due Date Last Done Comments ADVANCE CARE PLANNING 1945 ANNUAL REVIEW OF HM ORDERS 1945 NICOTINE/TOBACCO CESSATION COUNSELING Q 1 YR 1945 HEPATITIS C SCREENING 1965 ZOSTER IMMUNIZATION (1 of 2) 1997 LIPID 08/25/2010 08/25/2005 FALL RISK ASSESSMENT 2012 RSV VACCINE (1 - 1-dose 75+ series) 2022 LUNG CANCER SCREENING 06/23/2022 06/23/2021 , 12/01/2020, 11/21/2020, Additional history exists MEDICARE ANNUAL WELLNESS VISIT 06/07/2023 06/07/2022, 06/22/2008, 06/10/2007, Additional history exists COVID-19 Vaccine (3 - season) 2024 12/27/2020, 11/28/2020 INFLUENZA VACCINE (#1) 2024 9, 06/27/2011, 06/29/2010, Additional history exists Pneumococcal Vaccine: 50+ Years (3 of 3 - PCV20 or PCV21) 07/07/2024 07/07/2019, 05/10/2010 PHQ-2 (once per calendar year) 2024 DIABETES SCREENING 2026 2023, 1 , 11/14/2020, Additional history exists DTAP/TDAP/TD IMMUNIZATION (3 - Td or Tdap) 05/13/2032 05/13/2022, 06/10/2007, 10/03/1997, Additional history exists COLORECTAL CANCER SCREENING Discontinued FIT Discontinued 04/30/[address] COLONOGRAPHY Discontinued FLEX SIG Discontinued HPV IMMUNIZATION Aged Out No longer e ligible based on patient's age to complete this topic MENINGITIS IMMUNIZATION Aged Out No l onger eligible based on patient's age to complete this topic sDNA (Cologuard) Discontinued Procedures Procedure Name Priority Date/Time Associated Diagnosis Comments BASIC METABOLIC PANEL STAT 2023 3:[address] THORAX W/O CONT Routine 09/26/2009 5:43 PM SALES EXEC OCCULT BLOOD STOOL Routine 04/30/2009 4: 05 PM CDT LIPID PROFILE Routine 08/25/2005 6:10 AM SALES EXEC from Last 3 Months or Most Recently Relevant to Health Maintenance Results * Basic metabolic panel (2023 3:59 PM CDT) Sodium 138 136 - 145 mmol/L 2023 4:19 PM CDT LABORATORY Potassium 3.9 3.4 - 5.3 mmol/L 2023 4:19 PM CDT LABORATORY Chloride 99 98 - 107 mmol/L 2023 4:19 PM CDT LABORATORY Carbon Dioxide (CO2) 29 22 - 29 mmol/L 2023 4:19 PM CDT LABORATORY Anion Gap 10 7 - 15 mmol/L 2023 4:19 PM CDT LABORATORY Urea Nitrogen 10.6 8.0 - 23.0 mg/dL 2023 4:19 PM CDT LABORATORY Creatinine 0.98 0.67 - 1.17 mg/dL 2023 4:19 PM CDT LABORATORY Calcium 9.3 8.8 - 10.2 mg/dL 2023 4:19 PM CDT LABORATORY Glucose 94 70 - 99 mg/dL 2023 4:19 PM CDT LABORATORY GFR Estimate 80 >60 mL/min/1.7 3m2 2023 4:19 PM CDT LABORATORY Comment:eGFR calculated usin 2020 CKD-EPI equation. Blood BLOOD SPECIMEN / Unknown Venipuncture / Unknown 2023 3:59 PM CDT 2023 4:02 PM CDT us Wan Alvarado MD LAB - BLOOD ORDERABLES Final Res ult LABORATORY [facility] [address] Lab (1st floor, no room number) [place] [address], [facility] [phone] * CT SCAN CHEST (09/26/2009 5:43 PM SALES EXEC) Anatomical Region Laterality Modality Other 09/26/2009 5:43 PM SALES EXEC Impressions 09/26/2009 7:03 PM SALES EXEC CHEST CT WITH CONTRAST Sep 26, 2009 5:43:00 PM HISTORY: Left-sided chest pain and shortness of breath. Evaluate for pulmonary embolism. COMPARISON: 04/29/2009. TECHNIQUE: Axial images through the chest following the administration of 160 mL of Optiray 350 IV contrast without adverse event. Initial images were nondiagnostic because of poor opacification of the pulmonary arteries so the injection was repeated. The total volume administered was 160 mL. Coronal reformatted images were also evaluated. FINDINGS: There is a filling defect in the right lower lobe pulmonary artery. This is smaller in size than on the previous examination. There appears to be some contrast enhancement in the arterial branches distal to the filling defect. No pulmonary emboli are identified in the left lung. There is a moderate-sized right pleural effusion and right lower lobe atelectasis. Mild left basilar atelectasis is also present. Blebs in the apices bilaterally. Coronary arterial calcification. Atherosclerotic changes in the aorta, but no evidence of dissection. Images of the upper abdomen show a small low attenuation lesion in the right lobe of the liver, seen on image 96. This is unchanged. There is diffuse fatty infiltration of the liver. IMPRESSION: 1. Right lower lobe pulmonary embolism. This is smaller in size compared with the previous examination and this may represent residual thrombus, but new thrombus cannot be excluded. 2. Moderate-sized right pleural effusion and right lower lobe atelectasis. Findings were discussed with Dr. Patterson at the time of dictation. us Yao Patterson MD SPECIAL IMAGING STUDIES Edited * Occult blood stool (04/30/2009 4:05 PM CDT) Occult Blood Negative NEG MISYS 04/30/2009 4:05 PM CDT 04/30/2009 12:42 AM CDT us Kolby Rios MD LAB - STOOLS ORDERABLES Fin al Result MISYS * (ABNORMAL) Lipid panel (08/25/2005 6:10 AM SALES EXEC) Cholesterol 227(H) 0 - 200 mg/dL [facility] Comment: LDL Cholesterol is the primary guide to therapy: LDL-cholesterol goal in high risk patients is <100 mg/dL and in very high risk patients is <70 mg/dL. The NCEP recommends further evaluation of: patients with cholesterol <200 mg/dL if additionalrisk factors are present, cholesterol >240 mg/dL, triglycerides >150 mg/dL, or HDL <40 mg/dL. Triglycerides 341(H) 0 - 150 mg/dL [facility] HDL Cholesterol 42 40 - 110 mg/dL [facility] LDL Cholesterol Calculated 117 0 - 129 mg/dL [facility] Comment: LDL Cholesterol is the primary guide to therapy: LDL-cholesterol goal in high risk patients is <100 mg/dL and in very high risk patients is <70 mg/dL. VLDL-Cholesterol 68(H) 0 - 30 mg/dL [facility] Cholesterol/HDL Ratio 5.4(H) 0.0 - 5.0 MISYS 08/25/2005 6:10 AM SALES EXEC 08/25/2005 11:22 AM SALES EXEC Mike Schulz MD LAB - BLOOD ORDERABLES Final Result MISYS from Last 3 Months or Most Recently Relevant to Health Maintenance Insurance [employer] MEDICARE Care Teams Corn Press Operator Relationship Specialty Start Date End Date [facility], [facility] [address] [place] [address] PCP - General 03/09/23
--- OUTSIDE RECORDS SUMMARY | 2024-12-28 17:01 | XMS_ITS | Encounter Summary ---
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
--- OUTSIDE RECORDS SUMMARY | 2024-12-28 17:01 | XMS_ITS | Encounter Summary ---
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
--- OUTSIDE RECORDS SUMMARY | 2024-12-28 17:01 | XMS_ITS | Encounter Summary ---
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
--- OUTSIDE RECORDS SUMMARY | 2024-12-28 17:01 | XMS_ITS | Encounter Summary ---
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 Not on file Not on file documented as of this encounter Progress Notes * [facility], PROVIDER - 02/12/2012 12:00 AM CDT documented in this encounter Plan of Treatment Not on file documented as of this encounter Visit Diagnoses Not on filedocumented in this encounter Additional Health Concerns Infection Onset Date Last Indicated Resolved Time R/O COVID19 11/20/2020 11/20/2020 11/20/2020 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
[2024-12-28 17:02] LABS: Basophils Absolute Auto 0.02 K/uL (0.00-0.30); Basophils Percent Auto 0.2 % (0.0-3.0); Hematocrit 15.7 % (37.0-53.0); Immature Granulocytes Abs Auto 0.04 K/uL (0.00-0.30); Immature Granulocytes Pct Auto 0.4 %; Lymphocytes Percent Auto 6.4 % (20-44); Mean Corpuscular HGB Conc 31 gm/dL (32-36); Mean Corpuscular Hemoglobin 30 pg (26-34); Mean Corpuscular Volume 99 fL (80-100); Monocytes Percent Auto 7.3 % (0.0-11.0); Neutrophils Percent Auto 85.7 % (42.0-72.0); Platelet Count* 247 K/uL (140-440); RDW Coefficient of Variation % 17.2 % (11.5-15.5); Red Blood Count 1.59 m/uL (4.30-5.90); White Blood Count* 10.32 K/uL (4.50-11.00)
[2024-12-28 17:04] LABS: Troponin, Point-of-Care* 0.74 ng/ml (0.01-0.04)
[2024-12-28 17:15] LABS: Hemoglobin* 4.8 gm/dL (13.5-17.5); Slide Review Reflex Yes
[2024-12-28 17:27] LABS: PCR FLU A Negative PCR FLU A (Negative); PCR FLU B Negative PCR FLU B (Negative); SARS PCR* Negative SARS-CoV-2 (Negative)
[2024-12-28 17:27] LABS: Chloride* 104 mmol/L (96-114); Potassium* 3.5 mmol/L (3.6-5.1); Sodium* 135 mmol/L (135-149)
--- NOTE | 2024-12-28 17:28 | CRLHL7_ITS ---
For Patients: As a result of the Century Cures Act, medical imaging exams and procedure reports are released immediately into your electronic medical record. You may view this report before your referring provider. If you have questions, please contact your health care provider. Indication: Wheeze, weakness Comparison: None available. Technique: Single AP view chest Findings: There is hyperinflation and chronic interstitial change. There is basilar atelectasis and parenchymal scar. There is no pneumothorax or pleural effusion. The cardiac silhouette is within normal limits with median sternotomy wires. The bony thorax is grossly intact. Impression: Mild emphysematous changes with basilar atelectasis and parenchymal scar. No dense consolidation. Dictated by Giovany Crowley MD @ 12/28/2024 6:31:42 PM (Electronically Signed)
--- NOTE | 2024-12-28 17:28 | CRLHL7_ITS ---
For Patients: As a result of the Century Cures Act, medical imaging exams and procedure reports are released immediately into your electronic medical record. You may view this report before your referring provider. If you have questions, please contact your health care provider. INDICATION: FALLS WITH HEAD IMPACT, ANTICOAGULATION TECHNIQUE: CT of the head was performed without IV contrast. COMPARISON: None. FINDINGS: Slightly suboptimal examination secondary to motion artifact. Parenchyma: No acute hemorrhage, infarction, or mass. Mild confluent periventricular white matter hypoattenuation is nonspecific and is favored to represent chronic small vessel ischemic disease. Ventricles and extra-axial spaces: Mild to moderate involutional changes. Cavum septum pellucidum et vergae. Visualized paranasal sinuses: Moderate right maxillary sinus mucosal retention cyst versus polyp. Mastoid air cells: Clear. Bones: No focal abnormality. Additional comment: Bilateral lens surgery. IMPRESSION: No acute intracranial abnormality. Please note that all CT scans at this facility use dose modulation, iterative reconstruction, and/or weight-based dosing when appropriate to reduce radiation dose to as low as reasonably achievable. Dictated by Dimitris Jones MD @ 12/28/2024 6:46:21 PM (Electronically Signed)
[2024-12-28 17:30] LABS: Anion Gap 11 mEq/L (7-15); Blood Urea Nitrogen* 23 mg/dL (7-30); Calcium* 8.5 mg/dL (8.4-10.6); Carbon Dioxide* 20 mmol/L (20-32); Est. Creatinine Clearance* 75.95; Estimated Glomerular Filt Rate 78 ml/min; Glucose* 107 mg/dL (60-115)
[2024-12-28 18:01] LABS: NT Pro B Type NatriureticPept* 11900 pg/mL
[2024-12-28 18:08] LABS: Lactate* 1.9 mmol/L (0.5-1.9)
[2024-12-28 18:21] LABS: INR 1.12 (0.91-1.10); Prothrombin Time 15.3 Seconds
[2024-12-28 18:22] LABS: Partial Thromboplastin Time* 28 Seconds (23-33)
[2024-12-28 18:29] LABS: Albumin* 3.6 g/dL (3.3-5.0)
[2024-12-28 18:32] LABS: Alanine Aminotransferase* 40 U/L (4-50); Alkaline Phosphatase* 44 U/L (40-150); Aspartate Amino Transferase* 108 U/L (12-35); Bilirubin Direct* 0.4 mg/dL (0.0-0.5); Bilirubin Total* 0.9 mg/dL (0.1-1.5); Magnesium* 2.1 mg/dL (1.5-2.6); Total Protein* 5.6 g/dL (6.0-8.3)
[2024-12-28 18:47] LABS: Troponin I* 0.66 ng/mL (0.01-0.04)
[2024-12-28 19:19] LABS: Fecal Occult Blood* Positive (Negative)
[2024-12-28 19:25] LABS: Troponin, Point-of-Care* 1.66 ng/ml (0.01-0.04)
[2024-12-28] MEDS: 0.9 % SODIUM CHLORIDE 500 ML 500 ML IV (19:34)
--- NOTE | 2024-12-28 19:38 | CRLHL7_ITS ---
For Patients: As a result of the 21st Century Cures Act, medical imaging exams and procedure reports are released immediately into your electronic medical record. You may view this report before your referring provider. If you have questions, please contact your health care provider. Indication: GI bleed Technique: Volumetric multidetector CT images of the abdomen and pelvis were obtained before and after the administration of intravenous contrast using a GI bleed protocol. Maximum intensity projections were also performed. 100 cc Isovue 370 low osmolar intravenous contrast Comparison: None available. Findings: There is minimal bronchial thickening of the partially visualized lower lobe bronchi with basilar atelectasis and parenchymal scar. Cystic changes of the liver are appreciated with mild hepatic steatosis. The portal vein is patent. The gallbladder is unremarkable without evidence of radiopaque calculus. There is no significant common biliary ductal dilatation or abrupt cut off. The spleen is normal in enhancement and size. Decompressed appearance of the stomach with minimal nonspecific thickening of the gastric antrum. The pancreas is normal in enhancement without significant atrophy. Mildly bulky appearance of the left adrenal gland. The right adrenal gland is unremarkable. There is atrophy of the left kidney with compensatory hypertrophy of the right kidney. There is otherwise preserved corticomedullary differentiation. There is demonstration of moderate stool seen throughout the colon with somewhat hyperdense appearing stool within the mid transverse colon and descending colon without evidence of obvious contrast blush. The appendix is unremarkable. There are low-density nodules seen within the left pericolic gutter adjacent to the distal descending colon the largest of which is seen on series 5, image 190 measuring 1.7 centimeters in greatest dimension with additional nodules appreciated the next largest measuring up to 1.2 centimeters. No evidence of pathologic lymph nodes within the retroperitoneum or central mesentery. The aorta demonstrates extensive atherosclerotic calcification with atherosclerotic calcification of the celiac origin and superior mesenteric artery origin without evidence of high-grade stenosis. Patent inferior mesenteric artery. The solid pelvic viscera are grossly unremarkable. There is no free fluid or free air. The anterior abdominal wall is intact without significant hernias. The lumbar vertebral body heights are grossly maintained with minimal endplate Schmorl`s defects. Demonstration somewhat age indeterminate deformity of the inferior T12 endplate Impression: 1. Moderate hyperdense stool appreciated within the mid to distal colon without evidence of significant contrast blush to suggest site of active hemorrhage. 2. Demonstration soft tissue mass lesions within the left pericolic gutter adjacent to the descending colon. These findings are concerning for potential neoplastic changes and/or metastatic disease. No obvious malignancy or primary source is identified. Consider further evaluation with colonoscopy and/or PET-CT for improved characterization. 3. Otherwise, no acute intra-abdominal abnormality is appreciated. Please note that all CT scans at this facility use dose modulation, iterative reconstruction, and/or weight-based dosing when appropriate to reduce radiation dose to as low as reasonably achievable. Dictated by Giovany Crowley MD @ 12/28/2024 8:39:50 PM (Electronically Signed)
[2024-12-28] MEDS: PANTOPRAZOLE SODIUM 40 MG INJ 80 MG IVP (20:16)
[2024-12-28 21:44] LABS: Immature Reticulocyte Fraction 35.3 % (2.3-13.4); Reticulocyte Hemoglobin Equivi 23.8 pg (29.0-35.0); Reticulocyte Percent 16.4 % (0.5-2.0); Reticulocytes Absolute 0.26 # (0.03-0.08)
[2024-12-28 21:55] LABS: C Reactive Protein* 2.9 mg/dL (0.5-1.0); Slide Review Acceptable Review (Acceptable)
--- NOTE | 2024-12-28 22:26 | P.IMHP_ITS ---
Assessment and Plan Assessment and plan (1) GI bleed: Problem comment: -GI bleed 4.8 -2 units PRBCs (20mg lasix between) -f/u serial hbg and troponins -not actively bleeding on admission -no shock so likely this has developed over weeks/months -gen surg to consult on mass and outpatient plan -holding plavix and aspirin currently Status: Acute (2) Non-ST elevated myocardial infarction (non-STEMI): Problem comment: -nonstemi - from demand of low hemoglobin and afib rvr -f/u hemodynamics; correct anemia, discuss with cards on 12/30 -reviewed serial EKG - no active ischemia/No chest pain -echo ordered Status: Acute (3) Intraabdominal mass: Problem comment: unclear pathology; colon ca? metastatic disease? Status: Acute (4) Atrial fibrillation with rapid ventricular response: Problem comment: -by the time he arrived on the floor his heart rate was back in the 70s. And he converted back to sinus. No evidence of ischemia Status: Acute (5) Peripheral vascular disease: Status: Acute (6) Coronary artery disease: Status: Acute (7) Essential hypertension: Status: Acute (8) Wet senile macular degeneration: Status: Acute (9) Tobacco dependence: Status: Acute (10) Type 2 diabetes mellitus: Problem comment: -last A1C was 5.9 in 10/15 Status: Acute (11) Severe aortic stenosis: Problem comment: s/p TAVR in 06/14 Status: Acute (12) (HFpEF) heart failure with preserved ejection fraction: Problem comment: -last echo was 3 months out from TAVR. Aug 14 -EF 60-65% normal left ventricular function, aortic valve replaced Status: Acute (13) History of alcoholism: Status: Acute (14) Paroxysmal A-fib: Status: Acute (15) Carotid stenosis, bilateral: Status: Acute Hospitalist- H&P: HPI History of Present Illness Date Seen: 12/28/24 Chief complaint: Weakness Narrative: ADMISSION HISTORY AND PHYSICAL - HOSPITALIST Chief Complaint: Weakness HPI: 79-year-old who lives alone and has been experiencing weakness and falls over the last week, worse in the last 2 days. He describes striking his head hard during 1 of his falls. 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 His ex- was worried about him and called EMS for him. long-time smoker, has a chronic cough and history of COPD. No fever. He is unsure about his bowel movements. Denies vomiting. He is not sure when he took his medications last, specifically he takes Plavix and aspirin and statin for widespread vascular disease, metoprolol for paroxysmal AFib, metformin for diabetes. ER COURSE: The ER noted hypertensive, tachycardia but on room air. no fever. initial labs returned with a hemoglobin of 4.8, last hemoglobin was 1 year ago and was 14.3 Platelet count is normal, WBC count is normal. MCV is 99. Active reticulocyte count INR 1.12 Mild hypokalemia, mild bump in his AST. Troponin is elevated with initial point of care of 0.74, up to 1.66 in 3-4 hours. No chest pain. 0.66 in his chemistry measurement at 4:50 p.m. BNP 12,000 UA shows 3+ blood, 2+ ketones, 3+ protein Positive occult blood Chest x-ray reviewed, head CT reviewed GI protocol Abd/Pelvic CT 1. Moderate hyperdense stool appreciated within the mid to distal colon without evidence of significant contrast blush to suggest site of active hemorrhage. 2. Demonstration soft tissue mass lesions within the left pericolic gutter adjacent to the descending colon. These findings are concerning for potential neoplastic changes and/or metastatic disease. No obvious malignancy or primary source is identified. Consider further evaluation with colonoscopy and/or PET-CT for improved characterization. 3. Otherwise, no acute intra-abdominal abnormality is appreciated. EKG on admission showed AFib with RVR, rate of 113. He has been hypertensive since arrival. No chest pain. Mild shortness of breath. CODE STATUS: FULL CODE EMERGENCY CONTACT PLAN: Jessie Reeder Rel To Pat Friend Cell I've updated the PFSH, medications and allergies in the Expanse tabs. REVIEW OF SYSTEMS: 12-point ROS completed with patient and negative unless otherwise stated in HPI or below. PHYSICAL EXAM: CONSTITUTIONAL: Alert. Oriented to person place and timing. GENERAL: Well-developed and at ideal body weight, in no respiratory distress. VITAL SIGNS: see record. HEENT: Sclerae are anicteric. No petechiae. CARDIAC: rhythm is regular. There is no S3 or rub. No harsh murmurs. Extremities show trace edema with symmetrical pulses. PULM: good air entry with no wheeze. ABD: soft. no guarding. NEURO: Speech is fluent. A brief neurologic exam is negative. SKIN: No rashes, petechiae, concerning changes PSYCHIATRIC: Euthymic. ADMIT TO MEDSURG: CCU DVT:SCDs GI: PO intake Time spent: Today I spent 75 minutes seeing the patient, discussing the patient with ER staff, reviewing Expanse and EPIC notes/diagnostics, discussing the care plan with our care time that includes social work, PT/OT, pharmacy, RT, chcf and documenting my impressions and plan in the medical record. MEDICAL NECESSITY FOR HOSPITALIZATION Anticipated midnights in the hospital: 2 Admitting diagnosis: Acute GI bleed, severe anemia, new intra-abdominal malignancy, vascular disease Risk of morbidity and mortality: high Acuity is characterized as high and reflected in: Degree of anemia, degree of peripheral/cerebrovascular/cardiac vascular disease This patient will require hospital services as outlined in the assessment and plan in order to stabilize and be safely discharged to a lower level of care. Because of the risk and acuity as described above, this patient cannot be managed at a lower level of care. LENGTH OF STAY: 2 IP ? Anticipated LOS>2 midnights due to acuity of clinical presentation requiring inpatient level of care [facility] Medical History (Updated 12/29/24 @ 00:32 by Maxine Moffett MD) Carotid stenosis, bilateral ?I65.23 - Occlusion and stenosis of bilateral carotid arteries (ICD-10) Paroxysmal A-fib ?I48.0 - Paroxysmal atrial fibrillation (ICD-10) History of alcoholism ?F10.21 - Alcohol dependence, in remission (ICD-10) (HFpEF) heart failure with preserved ejection fraction ?I50.30 - Unspecified diastolic (congestive) heart failure (ICD-10) Severe aortic stenosis ?I35.0 - Nonrheumatic aortic (valve) stenosis (ICD-10) Type 2 diabetes mellitus ?E11.9 - Type 2 diabetes mellitus without complications (ICD-10) Tobacco dependence ?F17.200 - Nicotine dependence, unspecified, uncomplicated (ICD-10) Wet senile macular degeneration ?H35.3290 - Exudative age-related macular degeneration, unspecified eye, stage unspecified (ICD-10) Mixed hyperlipidemia ?E78.2 - Mixed hyperlipidemia (ICD-10) Essential hypertension ?I10 - Essential (primary) hypertension (ICD-10) Coronary artery disease ?I25.10 - Atherosclerotic heart disease of [place] coronary artery without angina pectoris (ICD-10) Peripheral vascular disease ?I73.9 - Peripheral vascular disease, unspecified (ICD-10) Surgical History (Updated 12/29/24 @ 00:22 by Maxine Moffett MD) Status post transcatheter aortic valve replacement (TAVR) using bioprosthesis ?Z95.3 - Presence of xenogenic heart valve (ICD-10) Social History Smoking Status: Current every day smoker What tobacco products do you use: cigarettes How often do you have a drink containing alcohol: never AUDIT-C Alcohol total score: 0 Non-prescribed substance use: denies use service: Yes Meds Home Medications and Allergies Home Medications ?Medication ?Instructions ?Recorded ?Confirmed ?Type clopidogrel 75 mg tablet 75 mg PO DAILY 12/28/24 12/28/24 History metformin 500 mg tablet 500 mg PO DAILY 12/28/24 12/28/24 History metoprolol tartrate 75 mg tablet 75 mg PO BID 12/28/24 12/28/24 History rosuvastatin 40 mg tablet 40 mg PO HS 12/28/24 12/28/24 History trazodone 50 mg tablet 50 mg PO QPM 12/28/24 12/28/24 History Allergies Allergy/AdvReac Type Severity Reaction Status Date / Time No Known Drug Allergies Allergy Verified 12/28/24 19:50 Exam Const: Vital Signs, click to edit/add: Vital Signs - 24 hr 12/28/24 16:42 12/28/24 16:43 12/28/24 16:45 Temperature 98.3 F Pulse Rate 123 H 122 H Pulse Rate [Pulse Oximeter] 126 H Respiratory Rate 21 20 18 Blood Pressure 97/52 L Blood Pressure [Ri ght Upper Arm] 97/52 L Pulse Oximetry 98 91 96 Oxygen Delivery Me thod Room Air 12/28/24 16:45 12/28/24 17:00 12/28/24 17:15 Temperature Pulse Rate 119 H 105 H 134 H Pulse Rate [Pulse Oximeter] Respiratory Rate 28 H 13 25 H Blood Pressure Blood Pressure [Ri ght Upper Arm] Pulse Oximetry 97 100 93 Oxygen Delivery Me thod 12/28/24 17:17 12/28/24 17:18 12/28/24 17:19 Temperature Pulse Rate 111 H 105 H Pulse Rate [Pulse Oximeter] Respiratory Rate 27 H 14 Blood Pressure 123/66 Blood Pressure [Ri ght Upper Arm] Pulse Oximetry 98 100 94 Oxygen Delivery Me thod 12/28/24 17:30 12/28/24 17:32 12/28/24 17:45 Temperature Pulse Rate 111 H 106 H 118 H Pulse Rate [Pulse Oximeter] Respiratory Rate 17 17 Blood Pressure 99/60 Blood Pressure [Ri ght Upper Arm] Pulse Oximetry 96 98 95 Oxygen Delivery Me thod 12/28/24 17:47 12/28/24 18:00 12/28/24 18:01 Temperature Pulse Rate 95 76 120 H Pulse Rate [Pulse Oximeter] Respiratory Rate 24 23 19 Blood Pressure 114/66 114/93 H Blood Pressure [Ri ght Upper Arm] Pulse Oximetry 99 100 99 Oxygen Delivery Me thod 12/28/24 18:19 12/28/24 18:30 12/28/24 18:32 Temperature Pulse Rate 88 115 H Pulse Rate [Pulse Oximeter] Respiratory Rate 14 20 24 Blood Pressure 103/71 142/71 H Blood Pressure [Ri ght Upper Arm] Pulse Oximetry 100 99 Oxygen Delivery Me thod 12/28/24 18:45 12/28/24 18:47 12/28/24 18:48 Temperature Pulse Rate 105 H 122 H 114 H Pulse Rate [Pulse Oximeter] Respiratory Rate 19 17 15 Blood Pressure 118/96 H Blood Pressure [Ri ght Upper Arm] Pulse Oximetry 100 100 100 Oxygen Delivery Me thod 12/28/24 19:00 12/28/24 19:01 12/28/24 19:17 Temperature 98.2 F Pulse Rate 105 H Pulse Rate [Pulse Oximeter] Respiratory Rate 17 25 H 14 Blood Pressure 130/82 172/65 H Blood Pressure [Ri ght Upper Arm] Pulse Oximetry 99 Oxygen Delivery Me thod Room Air 12/28/24 19:30 12/28/24 19:32 12/28/24 19:45 Temperature Pulse Rate Pulse Rate [Pulse Oximeter] Respiratory Rate 12 20 13 Blood Pressure 122/62 Blood Pressure [Ri ght Upper Arm] Pulse Oximetry Oxygen Delivery Me thod 12/28/24 19:47 12/28/24 20:07 12/28/24 20:15 Temperature Pulse Rate 104 H Pulse Rate [Pulse Oximeter] Respiratory Rate 10 L 23 14 Blood Pressure 151/76 H Blood Pressure [Ri ght Upper Arm] Pulse Oximetry 98 Oxygen Delivery Me thod 12/28/24 20:17 12/28/24 20:25 12/28/24 20:29 Temperature 98.0 F Pulse Rate 114 H 95 99 Pulse Rate [Pulse Oximeter] Respiratory Rate 19 21 18 Blood Pressure 167/74 H 157/82 H 157/82 H Blood Pressure [Ri ght Upper Arm] Pulse Oximetry 99 98 99 Oxygen Delivery Me od Room Air 12/28/24 20:30 12/28/24 20:31 12/28/24 20:44 Temperature 98.0 F Pulse Rate 109 H 103 H 120 H Pulse Rate [Pulse Oximeter] Respiratory Rate 14 11 L 18 Blood Pressure 155/108 H 169/82 H Blood Pressure [Ri ght Upper Arm] Pulse Oximetry 99 97 99 Oxygen Delivery Me od Room Air 12/28/24 20:45 12/28/24 20:47 12/28/24 21:00 Temperature Pulse Rate 99 120 H 107 H Pulse Rate [Pulse Oximeter] Respiratory Rate 12 8 L 12 Blood Pressure 169/82 H Blood Pressure [Ri ght Upper Arm] Pulse Oximetry 98 98 90 Oxygen Delivery Me od 12/28/24 21:02 12/28/24 21:15 12/28/24 21:17 Temperature Pulse Rate 105 H 113 H 87 Pulse Rate [Pulse Oximeter] Respiratory Rate 10 L 18 20 Blood Pressure 146/85 H 182/83 H Blood Pressure [Ri ght Upper Arm] Pulse Oximetry 98 100 100 Oxygen Delivery Me thod 12/28/24 21:25 12/28/24 21:30 12/28/24 21:34 Temperature Pulse Rate 80 80 78 Pulse Rate [Pulse Oximeter] Respiratory Rate 12 18 28 H Blood Pressure 182/72 H 180/68 H Blood Pressure [Ri ght Upper Arm] Pulse Oximetry 99 99 100 Oxygen Delivery Me thod 12/28/24 21:40 12/28/24 22:15 12/28/24 22:20 Temperature 98.3 F 98.6 F 98.6 F Pulse Rate 83 79 79 Pulse Rate [Pulse Oximeter] Respiratory Rate 22 20 20 Blood Pressure 185/75 H 193/89 H 193/89 H Blood Pressure [Ri ght Upper Arm] Pulse Oximetry 100 98 98 Oxygen Delivery Me thod Room Air Room Air Room Air Hospitalist - H&P: Result Labs Labs: Short CBC 12/28/24 Range/Units 16:50 WBC 10.32 (4.50-11.00) K/uL Hgb 4.8 L* (13.5-17.5) gm/dL Hct 15.7 L (37.0-53.0) % Plt Count 247 (140-440) K/uL BMP 12/28/24 16:50 Sodium 135 Potassium 3.5 L Chloride 104 Carbon Dioxide 20 BUN 23 Creatinine 1.0 Glucose 107 Calcium 8.5 Cardiac Enzymes 12/28/24 Range/Units 16:50 Troponin I 0.66 H* (0.01-0.04) ng/mL Liver Function 12/28/24 Range/Units 16:50 Total Bilirubin 0.9 (0.1-1.5) mg/dL Direct Bilirubin 0.4 (0.0-0.5) mg/dL AST 108 H (12-35) U/L ALT 40 (4-50) U/L Alkaline Phosphatase 44 (40-150) U/L Albumin 3.6 (3.3-5.0) g/dL
[2024-12-28] MEDS: TRAZODONE HCL 50 MG TABLET PO (22:49)
[2024-12-28] MEDS: FUROSEMIDE 10 MG/ML inj 20 MG IVP (22:50)
[2024-12-28] MEDS: METOPROLOL TARTRATE 1 MG/ML inj 5 MG IVP (22:51)
[2024-12-28] MEDS: SODIUM CHLORIDE 0.9 % (FLUSH) 10 ML SYRINGE 5 ML IVF (22:51)
[2024-12-28 23:30] LABS: Appearance Urine Cloudy (Clear); Bilirubin Urine 1+ (Negative); Blood Urine 3+ (Negative); Color Urine Yellow (Yellow); Glucose Urine Negative (Negative); Ketones Urine 2+ (Negative); Leukocyte Esterase Urine Negative (Negative); Nitrite Urine Negative (Negative); Protein Urine 3+ (Negative); Specific Gravity Urine 1.025 (1.000-1.030)
[2024-12-28 23:42] LABS: Bacteria Urine Few; Mucus Urine Few; Squamous Epithelial Cell Urine Few (None-Few)
[2024-12-29] VITALS (27 sets, daily range): BP systolic 137–209; BP diastolic 63–110; PULSE 46–83; RESP 16–22; TEMP 36.3–36.9; O2SAT 94–100
[2024-12-29] MEDS: METOPROLOL TARTRATE 25 MG TABLET 75 MG PO ×3 (00:11→21:20)
[2024-12-29 01:24] LABS: Hemoglobin* 6.8 gm/dL (13.5-17.5)
[2024-12-29 01:52] LABS: Troponin I* 2.12 ng/mL (0.01-0.04)
[2024-12-29] MEDS: FUROSEMIDE 10 MG/ML inj 20 MG IV (03:47)
[2024-12-29] MEDS: LABETALOL HCL 5 MG/ML inj 10 MG IVP (03:47)
[2024-12-29] MEDS: ACETAMINOPHEN 500 MG TABLET 1000 MG PO (03:47)
[2024-12-29] MEDS: SODIUM CHLORIDE 0.9 % (FLUSH) 10 ML SYRINGE 5 ML IVF ×4 (03:48→21:19)
[2024-12-29] MEDS: 0.9 % SODIUM CHLORIDE 500 ML 250 ML IV (03:49)
[2024-12-29] MEDS: METOPROLOL TARTRATE 1 MG/ML inj 5 MG IVP (05:37)
--- NOTE | 2024-12-29 06:53 | PC.NURSE ---
Patient arrived to the unit @2140 with a hgb of 4.8 and a unit of PRBC infusing. A&Ox3. Weak. Denies pain. Denies N/V/SOB/ Denies chest pain. Afebrile. Patient tolerated 3 units of PRBC well with 2 doses of Lasix administered in between. Scheduled Metoprolol and PRN Labetalol administered for elevated BP. Chronic, intermittent, productive cough. A1-2. Tolerating clears. Voiding.
[2024-12-29 06:55] LABS: Hemoglobin* 7.8 gm/dL (13.5-17.5)
[2024-12-29 08:52] LABS: Troponin I* 2.11 ng/mL (0.01-0.04)
[2024-12-29] MEDS: OMEPRAZOLE 20 MG CAPSULE DR PO ×2 (09:18→21:20)
[2024-12-29 12:29] LABS: Hemoglobin* 8.1 gm/dL (13.5-17.5)
[2024-12-29] MEDS: bisacodyL 5 MG TABLET DR 10 MG PO (13:27)
--- NOTE | 2024-12-29 13:39 | PM.GSCN ---
History of Present Illness Consult details Date Seen: 12/29/24 Consult date: 12/29/24 Narrative: 79-year-old male smoker presented to emergency room with multiple falls and was found to have hemoglobin of 4.8. Surgery was consulted regarding further workup of patient's anemia. Patient states that he ?could not get out of bed? and kept falling down. He felt weak. He finally was able to call his ex (he is almost completely blind) and his ex called 911. Upon his workup he was found to have anemia with hemoglobin of 4.8. Head CT was obtained that did not show any intracranial masses or intracranial bleeding. Abdominal CT was personally reviewed by me and showed thickened gastric antrum. Also hyperdense stool in the mid transverse and descending colon. There are also hypoattenuating lesions in the left pericolic gutter that were concerning for possible malignancy. Patient feels that he had a colonoscopy about 5 years ago. He is not able to tell if he had bloody stools or dark stools because of his vision. Patient has not had trouble with having bowel movements. His bowel movements are usually every other day. He has been eating regular food but feels decreased appetite and has lost about 70 lb in the last 6-8 months. Patient is not sure about family history of colon cancer. Review of Systems Narrative: General: no fevers HENT: no problems swallowing CV: no shortness of breath Resp: no cough GI: No nausea, vomiting, abdominal pain : no dysuria, no increased urinary frequency, no hematuria Skin: no new rashes Musculoskeletal: no back pain Neuro: no muscle weakness Psyche: no depression, no anxiety PFSH PFSH Medical History Carotid stenosis, bilateral ?I65.23 - Occlusion and stenosis of bilateral carotid arteries (ICD-10) Paroxysmal A-fib ?I48.0 - Paroxysmal atrial fibrillation (ICD-10) History of alcoholism ?F10.21 - Alcohol dependence, in remission (ICD-10) (HFpEF) heart failure with preserved ejection fraction ?I50.30 - Unspecified diastolic (congestive) heart failure (ICD-10) Severe aortic stenosis ?I35.0 - Nonrheumatic aortic (valve) stenosis (ICD-10) Type 2 diabetes mellitus ?E11.9 - Type 2 diabetes mellitus without complications (ICD-10) Tobacco dependence ?F17.200 - Nicotine dependence, unspecified, uncomplicated (ICD-10) Wet senile macular degeneration ?H35.3290 - Exudative age-related macular degeneration, unspecified eye, stage unspecified (ICD-10) Mixed hyperlipidemia ?E78.2 - Mixed hyperlipidemia (ICD-10) Essential hypertension ?I10 - Essential (primary) hypertension (ICD-10) Coronary artery disease ?I25.10 - Atherosclerotic heart disease of [place] coronary artery without angina pectoris (ICD-10) Peripheral vascular disease ?I73.9 - Peripheral vascular disease, unspecified (ICD-10) Surgical History S/P carotid endarterectomy ?Z98.890 - Other specified postprocedural states (ICD-10) Status post transcatheter aortic valve replacement (TAVR) using bioprosthesis ?Z95.3 - Presence of xenogenic heart valve (ICD-10) Social History (Updated 12/29/24 @ 13:46 by Charmaine Meadows MD) Narrative: Patient lives independently and is active. What is your current living situation?: I presently have a place to live Problems where you live: no known problems Problems where you live details: n/a In the past 12 months, utilities in danger of being shut off: no In past 12 months, lack of transportation kept you from medical appts, meetings, work, or getting things needed for daily living: no In the past 12 mos, have been you worried that your food would run out before you had money to buy more?: never true In the past 12 mos, the food you bought just didn't last and you didn't have money to buy more?: never true Highest level of school completed/degree received: high school graduate Smoking Status: Current every day smoker What tobacco products do you use: cigarettes Smoking packs per day: 1.5 Smoking cigarettes per day: 30.0 How often do you have a drink containing alcohol: never AUDIT-C Alcohol total score: 0 Non-prescribed substance use: denies use Caffeine: Yes How often does anyone, including family, friends and others, physically hurt you: never How often does anyone, including family, friends and others, insult or talk down to you: never How often does anyone, including family, friends and others, threaten you with harm: never How often does anyone, including family, friends and others, scream or curse at you: never service: Yes Meds Home Medications and Allergies Home Medications ?Medication ?Instructions ?Recorded ?Confirmed ?Type clopidogrel 75 mg tablet 75 mg PO DAILY 12/28/24 12/28/24 History metformin 500 mg tablet 500 mg PO DAILY 12/28/24 12/28/24 History metoprolol tartrate 75 mg tablet 75 mg PO BID 12/28/24 12/28/24 History rosuvastatin 40 mg tablet 40 mg PO HS 12/28/24 12/28/24 History trazodone 50 mg tablet 50 mg PO HS 12/28/24 12/29/24 History aspirin 81 mg tablet,delayed 81 mg PO DAILY 12/29/24 12/29/24 History release (Adult Aspirin Regimen) ferrous gluconate 324 mg (38 mg 324 mg PO DAILY 12/29/24 12/29/24 History iron) tablet Allergies Allergy/AdvReac Type Severity Reaction Status Date / Time No Known Drug Allergies Allergy Verified 12/28/24 19:50 Exam Narrative: Exam Narrative: General appearance: Alert, cooperative, and in no distress Pulmonary: Chest symmetric, lungs clear bilaterally Cardiovascular Heart: Regular rate and rhythm, S1, S2, no murmurs/rubs/gallops Gastrointestinal Abdominal: soft, not tender, not distended Skin: Normal skin color, texture, and turgor. No rashes or lesions. Psychiatric: Alert, cooperative, normal affect. Const: Vital Signs, click to edit/add: Vital Signs - 24 hr 12/28/24 16:42 12/28/24 16:43 12/28/24 16:45 Temperature 98.3 F Pulse Rate 123 H 122 H Pulse Rate [Left P ulse Oximeter] Pulse Rate [Pulse Oximeter] 126 H Respiratory Rate 21 20 18 Blood Pressure 97/52 L Blood Pressure [Ri ght Arm] Blood Pressure [Ri ght Upper Arm] 97/52 L Pulse Oximetry 98 91 96 Oxygen Delivery Me thod Room Air 12/28/24 16:45 12/28/24 17:00 12/28/24 17:15 Temperature Pulse Rate 119 H 105 H 134 H Pulse Rate [Left P ulse Oximeter] Pulse Rate [Pulse Oximeter] Respiratory Rate 28 H 13 25 H Blood Pressure Blood Pressure [Ri ght Arm] Blood Pressure [Ri ght Upper Arm] Pulse Oximetry 97 100 93 Oxygen Delivery Wa thod 12/28/24 17:17 12/28/24 17:18 12/28/24 17:19 Temperature Pulse Rate 111 H 105 H Pulse Rate [Left P ulse Oximeter] Pulse Rate [Pulse Oximeter] Respiratory Rate 27 H 14 Blood Pressure 123/66 Blood Pressure [Ri ght Arm] Blood Pressure [Ri ght Upper Arm] Pulse Oximetry 98 100 94 Oxygen Delivery Wa thod 12/28/24 17:30 12/28/24 17:32 12/28/24 17:45 Temperature Pulse Rate 111 H 106 H 118 H Pulse Rate [Left P ulse Oximeter] Pulse Rate [Pulse Oximeter] Respiratory Rate 17 17 Blood Pressure 99/60 Blood Pressure [Ri ght Arm] Blood Pressure [Ri ght Upper Arm] Pulse Oximetry 96 98 95 Oxygen Delivery Wa thod 12/28/24 17:47 12/28/24 18:00 12/28/24 18:01 Temperature Pulse Rate 95 76 120 H Pulse Rate [Left P ulse Oximeter] Pulse Rate [Pulse Oximeter] Respiratory Rate 24 23 19 Blood Pressure 114/66 114/93 H Blood Pressure [Ri ght Arm] Blood Pressure [Ri ght Upper Arm] Pulse Oximetry 99 100 99 Oxygen Delivery Wa thod 12/28/24 18:19 12/28/24 18:30 12/28/24 18:32 Temperature Pulse Rate 88 115 H Pulse Rate [Left P ulse Oximeter] Pulse Rate [Pulse Oximeter] Respiratory Rate 14 20 24 Blood Pressure 103/71 142/71 H Blood Pressure [Ri ght Arm] Blood Pressure [Ri ght Upper Arm] Pulse Oximetry 100 99 Oxygen Delivery Wa thod 12/28/24 18:45 12/28/24 18:47 12/28/24 18:48 Temperature Pulse Rate 105 H 122 H 114 H Pulse Rate [Left P ulse Oximeter] Pulse Rate [Pulse Oximeter] Respiratory Rate 19 17 15 Blood Pressure 118/96 H Blood Pressure [Ri ght Arm] Blood Pressure [Ri ght Upper Arm] Pulse Oximetry 100 100 100 Oxygen Delivery Wa thod 12/28/24 19:00 12/28/24 19:01 12/28/24 19:17 Temperature 98.2 F Pulse Rate 105 H Pulse Rate [Left P ulse Oximeter] Pulse Rate [Pulse Oximeter] Respiratory Rate 17 25 H 14 Blood Pressure 130/82 172/65 H Blood Pressure [Ri ght Arm] Blood Pressure [Ri ght Upper Arm] Pulse Oximetry 99 Oxygen Delivery [facility] Room Air 12/28/24 19:30 12/28/24 19:32 12/28/24 19:45 Temperature Pulse Rate Pulse Rate [Left P ulse Oximeter] Pulse Rate [Pulse Oximeter] Respiratory Rate 12 20 13 Blood Pressure 122/62 Blood Pressure [Ri ght Arm] Blood Pressure [Ri ght Upper Arm] Pulse Oximetry [facility] 12/28/24 19:47 12/28/24 20:07 12/28/24 20:15 Temperature Pulse Rate 104 H Pulse Rate [Left P ulse Oximeter] Pulse Rate [Pulse Oximeter] Respiratory Rate 10 L 23 14 Blood Pressure 151/76 H Blood Pressure [Ri ght Arm] Blood Pressure [Ri ght Upper Arm] Pulse Oximetry 98 [facility] 12/28/24 20:17 12/28/24 20:25 12/28/24 20:29 Temperature 98.0 F Pulse Rate 114 H 95 99 Pulse Rate [Left P ulse Oximeter] Pulse Rate [Pulse Oximeter] Respiratory Rate 19 21 18 Blood Pressure 167/74 H 157/82 H 157/82 H Blood Pressure [Ri ght Arm] Blood Pressure [Ri ght Upper Arm] Pulse Oximetry 99 98 99 Oxygen Delivery [facility] Room Air 12/28/24 20:30 12/28/24 20:31 12/28/24 20:44 Temperature 98.0 F Pulse Rate 109 H 103 H 120 H Pulse Rate [Left P ulse Oximeter] Pulse Rate [Pulse Oximeter] Respiratory Rate 14 11 L 18 Blood Pressure 155/108 H 169/82 H Blood Pressure [Ri ght Arm] Blood Pressure [Ri ght Upper Arm] Pulse Oximetry 99 97 99 Oxygen Delivery [facility] Room Air 12/28/24 20:45 12/28/24 20:47 12/28/24 21:00 Temperature Pulse Rate 99 120 H 107 H Pulse Rate [Left P ulse Oximeter] Pulse Rate [Pulse Oximeter] Respiratory Rate 12 8 L 12 Blood Pressure 169/82 H Blood Pressure [Ri ght Arm] Blood Pressure [Ri ght Upper Arm] Pulse Oximetry 98 98 90 Oxygen Delivery Me thod 12/28/24 21:02 12/28/24 21:15 12/28/24 21:17 Temperature Pulse Rate 105 H 113 H 87 Pulse Rate [Left P ulse Oximeter] Pulse Rate [Pulse Oximeter] Respiratory Rate 10 L 18 20 Blood Pressure 146/85 H 182/83 H Blood Pressure [Ri ght Arm] Blood Pressure [Ri ght Upper Arm] Pulse Oximetry 98 100 100 Oxygen Delivery Me thod 12/28/24 21:25 12/28/24 21:30 12/28/24 21:34 Temperature Pulse Rate 80 80 78 Pulse Rate [Left P ulse Oximeter] Pulse Rate [Pulse Oximeter] Respiratory Rate 12 18 28 H Blood Pressure 182/72 H 180/68 H Blood Pressure [Ri ght Arm] Blood Pressure [Ri ght Upper Arm] Pulse Oximetry 99 99 100 Oxygen Delivery Wa thod 12/28/24 21:40 12/28/24 22:15 12/28/24 22:20 Temperature 98.3 F 98.6 F 98.6 F Pulse Rate 83 79 79 Pulse Rate [Left P ulse Oximeter] Pulse Rate [Pulse Oximeter] Respiratory Rate 22 20 20 Blood Pressure 185/75 H 193/89 H 193/89 H Blood Pressure [Ri ght Arm] Blood Pressure [Ri ght Upper Arm] Pulse Oximetry 100 98 98 Oxygen Delivery Me thod Room Air Room Air Room Air 12/28/24 22:32 12/28/24 22:32 12/28/24 22:32 Temperature 98.3 F Pulse Rate 83 Pulse Rate [Left P ulse Oximeter] 83 Pulse Rate [Pulse Oximeter] Respiratory Rate 20 Blood Pressure Blood Pressure [Ri ght Arm] 185/75 H Blood Pressure [Ri ght Upper Arm] Pulse Oximetry 100 100 Oxygen Delivery Me thod Room Air 12/28/24 22:32 12/28/24 22:37 12/28/24 22:37 Temperature 97.9 F 97.9 F Pulse Rate 77 Pulse Rate [Left P ulse Oximeter] 77 Pulse Rate [Pulse Oximeter] Respiratory Rate 22 18 18 Blood Pressure 193/84 H Blood Pressure [Ri ght Arm] 193/84 H Blood Pressure [Ri ght Upper Arm] Pulse Oximetry 100 100 Oxygen Delivery Me thod Room Air Room Air 12/28/24 22:52 12/28/24 23:22 12/28/24 23:22 Temperature 98.4 F 98.1 F 98.1 F Pulse Rate 74 84 84 Pulse Rate [Left P ulse Oximeter] Pulse Rate [Pulse Oximeter] Respiratory Rate 20 22 22 Blood Pressure 200/85 H 196/101 H 196/101 H Blood Pressure [Ri ght Arm] Blood Pressure [Ri ght Upper Arm] Pulse Oximetry 99 98 98 Oxygen Delivery Wa thod Room Air Room Air Room Air 12/28/24 23:52 12/28/24 23:52 12/29/24 00:23 Temperature 97.9 F 98.5 F 98.5 F Pulse Rate 77 83 Pulse Rate [Left P ulse Oximeter] 77 Pulse Rate [Pulse Oximeter] Respiratory Rate 20 22 20 Blood Pressure 193/86 H 197/82 H Blood Pressure [Ri ght Arm] 193/86 H Blood Pressure [Ri ght Upper Arm] Pulse Oximetry 97 99 99 [facility] Delivery [facility] Room Air Room Air Room Air 12/29/24 01:27 12/29/24 01:57 12/29/24 02:00 Temperature 98.5 F 98.5 F Pulse Rate 83 72 Pulse Rate [Left P ulse Oximeter] 69 Pulse Rate [Pulse Oximeter] Respiratory Rate 22 22 Blood Pressure 197/82 H Blood Pressure [Ri ght Arm] 191/77 H Blood Pressure [Ri ght Upper Arm] Pulse Oximetry 99 98 Oxygen Delivery [facility] Room Air Room Air 12/29/24 02:47 12/29/24 04:04 12/29/24 04:06 Temperature 98.5 F 98.5 F Pulse Rate 62 66 Pulse Rate [Left P ulse Oximeter] 65 Pulse Rate [Pulse Oximeter] Respiratory Rate 22 20 Blood Pressure 147/71 H Blood Pressure [Ri ght Arm] 147/71 H Blood Pressure [Ri ght Upper Arm] Pulse Oximetry 97 99 Oxygen Delivery Wa thod Room Air Room Air 12/29/24 04:21 12/29/24 04:52 12/29/24 05:22 Temperature 98.2 F 98.1 F 98.0 F Pulse Rate 62 67 70 Pulse Rate [Left P ulse Oximeter] Pulse Rate [Pulse Oximeter] Respiratory Rate 20 20 20 Blood Pressure 137/110 H 150/102 H 173/67 H Blood Pressure [Ri ght Arm] Blood Pressure [Ri ght Upper Arm] Pulse Oximetry 98 98 98 Oxygen Delivery Me thod Room Air Room Air Room Air 12/29/24 05:50 12/29/24 05:52 12/29/24 06:42 Temperature 98.1 F 98.1 F 97.7 F Pulse Rate 67 68 Pulse Rate [Left P ulse Oximeter] 65 Pulse Rate [Pulse Oximeter] Respiratory Rate 22 22 20 Blood Pressure 165/67 H 141/63 H Blood Pressure [Ri ght Arm] 165/67 H Blood Pressure [Ri ght Upper Arm] Pulse Oximetry 97 97 98 Oxygen Delivery Wa thod Room Air Room Air Room Air 12/29/24 08:00 12/29/24 08:20 12/29/24 10:00 Temperature 97.9 F 97.6 F Pulse Rate Pulse Rate [Left P ulse Oximeter] 59 L 59 L 60 Pulse Rate [Pulse Oximeter] Respiratory Rate 20 20 16 Blood Pressure Blood Pressure [Ri ght Arm] 149/77 H 149/72 H Blood Pressure [Ri ght Upper Arm] Pulse Oximetry 96 100 Oxygen Delivery Wa thod Room Air Room Air 12/29/24 11:43 12/29/24 12:00 Temperature 97.8 F Pulse Rate Pulse Rate [Left P ulse Oximeter] 49 L 49 L Pulse Rate [Pulse Oximeter] Respiratory Rate 20 Blood Pressure Blood Pressure [Ri ght Arm] 182/72 H Blood Pressure [Ri ght Upper Arm] Pulse Oximetry 98 Oxygen Delivery Wa thod Room Air Results Labs Labs: Abnormal lab results 12/28/24 12/28/24 12/28/24 Range/Units 16:50 19:09 23:04 RBC 1.59 L (4.30-5.90) m/uL Hgb 4.8 L* (13.5-17.5) gm/dL Hct 15.7 L (37.0-53.0) % MCHC 31 L (32-36) gm/dL RDW Coeff of Get 17.2 H (11.5-15.5) % Neut % (Auto) 85.7 H (42.0-72.0) % Lymph % (Auto) 6.4 L (20-44) % Neut # (Auto) 8.80 H (1.7-7.0) K/uL Lymph # (Auto) 0.70 L (0.90-2.90) K/uL Absolute Retic 0.26 H (0.03-0.08) # Percent Retic 16.4 H (0.5-2.0) % Immature Retic Fraction 35.3 H (2.3-13.4) % Retic Hgb Equivalent 23.8 L (29.0-35.0) pg INR 1.12 H (0.91-1.10) Potassium 3.5 L (3.6-5.1) mmol/L AST 108 H (12-35) U/L Troponin I 0.66 H* (0.01-0.04) ng/mL C-Reactive Protein 2.9 H (0.5-1.0) mg/dL Total Protein 5.6 L (6.0-8.3) g/dL Urine Appearance Cloudy A (Clear) Urine Protein 3+ A (Negative) Urine Ketones 2+ A (Negative) Urine Blood 3+ A (Negative) Urine Bilirubin 1+ A (Negative) Urine RBC 2-5 A (0-2) Urine Bacteria Few A (None) Urine Mucus Few A (None) POC Troponin I 0.74 H 1.66 H (0.01-0.04) ng/ml Crossmatch (AHG) See Detail 12/29/24 12/29/24 12/29/24 Range/Units 01:13 06:23 12:14 RBC (4.30-5.90) m/uL Hgb 6.8 L* 7.8 L* 8.1 L (13.5-17.5) gm/dL Hct (37.0-53.0) % MCHC (32-36) gm/dL RDW Coeff of Get (11.5-15.5) % Neut % (Auto) (42.0-72.0) % Lymph % (Auto) (20-44) % Neut # (Auto) (1.7-7.0) K/uL Lymph # (Auto) (0.90-2.90) K/uL Absolute Retic (0.03-0.08) # Percent Retic (0.5-2.0) % Immature Retic Fraction (2.3-13.4) % Retic Hgb Equivalent (29.0-35.0) pg INR (0.91-1.10) Potassium (3.6-5.1) mmol/L AST (12-35) U/L Troponin I 2.12 H* 2.11 H* 1.50 H* (0.01-0.04) ng/mL C-Reactive Protein (0.5-1.0) mg/dL Total Protein (6.0-8.3) g/dL Urine Appearance (Clear) Urine Protein (Negative) Urine Ketones (Negative) Urine Blood (Negative) Urine Bilirubin (Negative) Urine RBC (0-2) Urine Bacteria (None) Urine Mucus (None) POC Troponin I (0.01-0.04) ng/ml Crossmatch (AHG) Diabetes panel 12/28/24 Range/Units 16:50 Sodium 135 (135-149) mmol/L Potassium 3.5 L (3.6-5.1) mmol/L Chloride 104 (96-114) mmol/L Carbon Dioxide 20 (20-32) mmol/L BUN 23 (7-30) mg/dL Creatinine 1.0 (0.5-1.5) mg/dL Glucose 107 (60-115) mg/dL Calcium 8.5 (8.4-10.6) mg/dL AST 108 H (12-35) U/L ALT 40 (4-50) U/L Alkaline Phosphatase 44 (40-150) U/L Total Protein 5.6 L (6.0-8.3) g/dL Albumin 3.6 (3.3-5.0) g/dL Calcium panel 12/28/24 Range/Units 16:50 Calcium 8.5 (8.4-10.6) mg/dL Albumin 3.6 (3.3-5.0) g/dL Pituitary panel 12/28/24 Range/Units 16:50 Sodium 135 (135-149) mmol/L Potassium 3.5 L (3.6-5.1) mmol/L Chloride 104 (96-114) mmol/L Carbon Dioxide 20 (20-32) mmol/L BUN 23 (7-30) mg/dL Creatinine 1.0 (0.5-1.5) mg/dL Glucose 107 (60-115) mg/dL Calcium 8.5 (8.4-10.6) mg/dL Adrenal panel 12/28/24 Range/Units 16:50 Sodium 135 (135-149) mmol/L Potassium 3.5 L (3.6-5.1) mmol/L Chloride 104 (96-114) mmol/L Carbon Dioxide 20 (20-32) mmol/L BUN 23 (7-30) mg/dL Creatinine 1.0 (0.5-1.5) mg/dL Glucose 107 (60-115) mg/dL Calcium 8.5 (8.4-10.6) mg/dL Total Bilirubin 0.9 (0.1-1.5) mg/dL AST 108 H (12-35) U/L ALT 40 (4-50) U/L Alkaline Phosphatase 44 (40-150) U/L Total Protein 5.6 L (6.0-8.3) g/dL Albumin 3.6 (3.3-5.0) g/dL All other labs normal. Progress Note:A&P Assessment and plan (1) GI bleed: Status: Acute Assessment and Plan: 79-year-old male presents with anemia of unknown etiology. I agree with the hospitalist that we should proceed with upper endoscopy and colonoscopy. We will prep the patient for procedure tomorrow. Patient's hemoglobin has increased after transfusion. His non STEMI is most likely due to demand ischemia. His echo showed ejection fraction that was normal. We will continue to monitor that. I discussed with the patient his CT findings. He does not appear to have an intraluminal colonic mass but has hypoattenuating teeing lesions adjacent to the descending colon. If his colonoscopy is not revealing, we may have to consider PET scan given his weight loss and anemia. (2) Non-ST elevated myocardial infarction (non-STEMI): Status: Acute
--- NOTE | 2024-12-29 15:01 | PM.IMPN1 ---
Assessment and Plan Assessment and plan (1) GI bleed: Problem comment: -GI bleed hemoglobin from 4.8-7.8 with 3 units of blood. Now appears stable. Move out of CCU. -f/u serial hbg and troponins -not actively bleeding on admission -no shock so likely this has developed over weeks/months EGD and colonoscopy tomorrow -holding plavix and aspirin currently. With fairly severe diffuse vascular disease would like to restart at least 1 antiplatelet agent if bleeding source can be identified and stopped Status: Acute (2) Acute blood loss anemia: Problem comment: Due to GI bleeding. Status: Acute (3) Non-ST elevated myocardial infarction (non-STEMI): Problem comment: -nonstemi - from demand of low hemoglobin and afib rvr -f/u hemodynamics; correct anemia, discuss with cards on 12/30 -reviewed serial EKG - no active ischemia/No chest pain -echo relatively normal Status: Acute (4) Intraabdominal mass: Problem comment: Soft tissue lesions adjacent to descending colon. Obtain colonoscopy and then consider PET scan depending on clinical course Status: Acute (5) Atrial fibrillation with rapid ventricular response: Problem comment: -by the time he arrived on the floor his heart rate was back in the 70s. And he converted back to sinus. No evidence of ischemia Status: Acute (6) (HFpEF) heart failure with preserved ejection fraction: Problem comment: -last echo was 3 months out from TAVR. 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 In September 2023 he was 102 kg, in December he was 97 and 0.5 kg and on this admission 85.5 kg. Status: Acute Plan Continue in hospital for management of GI bleeding, severe anemia, non STEMI. Colonoscopy and EGD. Serial hemoglobins. Trend troponin. Total Time Spent Total Time Spent: Total time spent is 60 minutes in reviewing outside records, coordination of care and discussing with patient and other providers ongoing management of heart disease, GI bleeding and evaluation of functional status. Subjective Date Seen: 12/29/24 Interval history: HPI: 79-year-old who lives alone and has been experiencing weakness and falls over the last week, worse in the last 2 days. He describes striking his head hard during 1 of his falls. 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 His ex- was worried about him and called EMS for him. long-time smoker, has a chronic cough and history of COPD. No fever. He is unsure about his bowel movements. Denies vomiting. He is not sure when he took his medications last, specifically he takes Plavix and aspirin and statin for widespread vascular disease, metoprolol for paroxysmal AFib, metformin for diabetes. At the time of admission patient was found to have a hemoglobin of 4.8 with melanotic stools. Is also found to have an elevated troponin at 0.74. He had no chest pain, dyspnea. EKG is noted to show LVH but otherwise unremarkable. Abdomen pelvis CT showed soft tissue lesions adjacent to but not obviously in the left colon. No other obvious signs of metastases. Recommend colonoscopy and or PET-CT. Head CT is unremarkable. Chest x-ray shows no acute changes and emphysema. He is transfused 3 units of blood and hemoglobin went from 4.8 to 8.1 today. He does report feeling better with this. Echocardiogram shows ejection fraction of 50 55%, aortic valve replacement without stenosis or regurgitation. Moderate mitral stenosis and mild to moderate mitral regurgitation. Troponin was 0.66 on admission, increased to 2.1 and then came down to 1.5 today. Electrocardiogram and telemetry showed no changes. Vital signs have been stable and normal. Patient is fairly severely visually impaired. He is not sure if he can tell the color of his stool at home and does not know if he has had a change in stool color for some time. He has had occasional constipation but no diarrhea. He does not remember his last colonoscopy. He is on aspirin and Plavix. He continues to smoke cigarettes. He continues to drive a car. He lives alone. His ex- is his primary support. He is scheduled for carotid surgery in early January. I believe at [facility]. Exam Narrative: Exam Narrative: He is alert and appears in no distress. Speech is normal. He is oriented to his circumstances. He has trouble giving much detail about his past history, current medications, medical diagnosis. Head is without trauma. Respirations are clear to auscultation. Cardiovascular: S1, S2, regular rate and rhythm. Abdomen: Bowel sounds active. Abdomen is soft without tenderness or mass. Extremities without edema Const: Vital Signs, click to edit/add: Vital Signs - 24 hr 12/28/24 16:42 12/28/24 16:43 12/28/24 16:45 Temperature 98.3 F Pulse Rate 123 H 122 H Pulse Rate [Left P ulse Oximeter] Pulse Rate [Pulse Oximeter] 126 H Respiratory Rate 21 20 18 Blood Pressure 97/52 L Blood Pressure [Ri ght Arm] Blood Pressure [Ri ght Upper Arm] 97/52 L Pulse Oximetry 98 91 96 Oxygen Delivery Me thod Room Air 12/28/24 16:45 12/28/24 17:00 12/28/24 17:15 Temperature Pulse Rate 119 H 105 H 134 H Pulse Rate [Left P ulse Oximeter] Pulse Rate [Pulse Oximeter] Respiratory Rate 28 H 13 25 H Blood Pressure Blood Pressure [Ri ght Arm] Blood Pressure [Ri ght Upper Arm] Pulse Oximetry 97 100 93 Oxygen Delivery Me thod 12/28/24 17:17 12/28/24 17:18 12/28/24 17:19 Temperature Pulse Rate 111 H 105 H Pulse Rate [Left P ulse Oximeter] Pulse Rate [Pulse Oximeter] Respiratory Rate 27 H 14 Blood Pressure 123/66 Blood Pressure [Ri ght Arm] Blood Pressure [Ri ght Upper Arm] Pulse Oximetry 98 100 94 Oxygen Delivery Me thod 12/28/24 17:30 12/28/24 17:32 12/28/24 17:45 Temperature Pulse Rate 111 H 106 H 118 H Pulse Rate [Left P ulse Oximeter] Pulse Rate [Pulse Oximeter] Respiratory Rate 17 17 Blood Pressure 99/60 Blood Pressure [Ri ght Arm] Blood Pressure [Ri ght Upper Arm] Pulse Oximetry 96 98 95 Oxygen Delivery Me thod 12/28/24 17:47 12/28/24 18:00 12/28/24 18:01 Temperature Pulse Rate 95 76 120 H Pulse Rate [Left P ulse Oximeter] Pulse Rate [Pulse Oximeter] Respiratory Rate 24 23 19 Blood Pressure 114/66 114/93 H Blood Pressure [Ri ght Arm] Blood Pressure [Ri ght Upper Arm] Pulse Oximetry 99 100 99 Oxygen Delivery Me thod 12/28/24 18:19 12/28/24 18:30 12/28/24 18:32 Temperature Pulse Rate 88 115 H Pulse Rate [Left P ulse Oximeter] Pulse Rate [Pulse Oximeter] Respiratory Rate 14 20 24 Blood Pressure 103/71 142/71 H Blood Pressure [Ri ght Arm] Blood Pressure [Ri ght Upper Arm] Pulse Oximetry 100 99 Oxygen Delivery Ia thod 12/28/24 18:45 12/28/24 18:47 12/28/24 18:48 Temperature Pulse Rate 105 H 122 H 114 H Pulse Rate [Left P ulse Oximeter] Pulse Rate [Pulse Oximeter] Respiratory Rate 19 17 15 Blood Pressure 118/96 H Blood Pressure [Ri ght Arm] Blood Pressure [Ri ght Upper Arm] Pulse Oximetry 100 100 100 Oxygen Delivery Ia thod 12/28/24 19:00 12/28/24 19:01 12/28/24 19:17 Temperature 98.2 F Pulse Rate 105 H Pulse Rate [Left P ulse Oximeter] Pulse Rate [Pulse Oximeter] Respiratory Rate 17 25 H 14 Blood Pressure 130/82 172/65 H Blood Pressure [Ri ght Arm] Blood Pressure [Ri ght Upper Arm] Pulse Oximetry 99 Oxygen Delivery Ia thod Room Air 12/28/24 19:30 12/28/24 19:32 12/28/24 19:45 Temperature Pulse Rate Pulse Rate [Left P ulse Oximeter] Pulse Rate [Pulse Oximeter] Respiratory Rate 12 20 13 Blood Pressure 122/62 Blood Pressure [Ri ght Arm] Blood Pressure [Ri ght Upper Arm] Pulse Oximetry Oxygen Delivery Me thod 12/28/24 19:47 12/28/24 20:07 12/28/24 20:15 Temperature Pulse Rate 104 H Pulse Rate [Left P ulse Oximeter] Pulse Rate [Pulse Oximeter] Respiratory Rate 10 L 23 14 Blood Pressure 151/76 H Blood Pressure [Ri ght Arm] Blood Pressure [Ri ght Upper Arm] Pulse [facility]ximetry [facility] 20[facility]17 12/28/24 20:25 12/28/24 20:29 Temperature 98.0 F Pulse Rate 114 H 95 99 Pulse Rate [Left P ulse Oximeter] Pulse Rate [Pulse Oximeter] Respiratory Rate 19 21 18 Blood Pressure 167/74 H 157/82 H 157/82 H Blood Pressure [Ri ght Arm] Blood Pressure [Ri ght Upper Arm] Pulse Oximetry 99 98 99 Oxygen Delivery [facility] Room Air 12/28/24 20:30 12/28/24 20:31 12/28/24 20:44 Temperature 98.0 F Pulse Rate 109 H 103 H 120 H Pulse Rate [Left P ulse Oximeter] Pulse Rate [Pulse Oximeter] Respiratory Rate 14 11 L 18 Blood Pressure 155/108 H 169/82 H Blood Pressure [Ri ght Arm] Blood Pressure [Ri ght Upper Arm] Pulse Oximetry 99 97 99 Oxygen Delivery [facility] Room Air 12/28/24 20:45 12/28/24 20:47 12/28/24 21:00 Temperature Pulse Rate 99 120 H 107 H Pulse Rate [Left P ulse Oximeter] Pulse Rate [Pulse Oximeter] Respiratory Rate 12 8 L 12 Blood Pressure 169/82 H Blood Pressure [Ri ght Arm] Blood Pressure [Ri ght Upper Arm] Pulse Oximetry 98 98 90 Oxygen Delivery [facility] 12/28/24 21:02 12/28/24 21:15 12/28/24 21:17 Temperature Pulse Rate 105 H 113 H 87 Pulse Rate [Left P ulse Oximeter] Pulse Rate [Pulse Oximeter] Respiratory Rate 10 L 18 20 Blood Pressure 146/85 H 182/83 H Blood Pressure [Ri ght Arm] Blood Pressure [Ri ght Upper Arm] Pulse Oximetry 98 100 [facility] 21:25 12/28/24 21:30 12/28/24 21:34 Temperature Pulse Rate 80 80 78 Pulse Rate [Left P ulse Oximeter] Pulse Rate [Pulse Oximeter] Respiratory Rate 12 18 28 H Blood Pressure 182/72 H 180/68 H Blood Pressure [Ri ght Arm] Blood Pressure [Ri ght Upper Arm] Pulse Oximetry 99 99 100 Oxygen Delivery Me thod 12/28/24 21:40 12/28/24 22:15 12/28/24 22:20 Temperature 98.3 F 98.6 F 98.6 F Pulse Rate 83 79 79 Pulse Rate [Left P ulse Oximeter] Pulse Rate [Pulse Oximeter] Respiratory Rate 22 20 20 Blood Pressure 185/75 H 193/89 H 193/89 H Blood Pressure [Ri ght Arm] Blood Pressure [Ri ght Upper Arm] Pulse Oximetry 100 98 98 Oxygen Delivery Me thod Room Air Room Air Room Air 12/28/24 22:32 12/28/24 22:32 12/28/24 22:32 Temperature 98.3 F Pulse Rate 83 Pulse Rate [Left P ulse Oximeter] 83 Pulse Rate [Pulse Oximeter] Respiratory Rate 20 Blood Pressure Blood Pressure [Ri ght Arm] 185/75 H Blood Pressure [Ri ght Upper Arm] Pulse Oximetry 100 100 Oxygen Delivery Ia thod Room Air 12/28/24 22:32 12/28/24 22:37 12/28/24 22:37 Temperature 97.9 F 97.9 F Pulse Rate 77 Pulse Rate [Left P ulse Oximeter] 77 Pulse Rate [Pulse Oximeter] Respiratory Rate 22 18 18 Blood Pressure 193/84 H Blood Pressure [Ri ght Arm] 193/84 H Blood Pressure [Ri ght Upper Arm] Pulse Oximetry 100 100 Oxygen Delivery Ia thod Room Air Room Air 12/28/24 22:52 12/28/24 23:22 12/28/24 23:22 Temperature 98.4 F 98.1 F 98.1 F Pulse Rate 74 84 84 Pulse Rate [Left P ulse Oximeter] Pulse Rate [Pulse Oximeter] Respiratory Rate 20 22 22 Blood Pressure 200/85 H 196/101 H 196/101 H Blood Pressure [Ri ght Arm] Blood Pressure [Ri ght Upper Arm] Pulse Oximetry 99 98 98 Oxygen Delivery Me thod Room Air Room Air Room Air 12/28/24 23:52 12/28/24 23:52 12/29/24 00:23 Temperature 97.9 F 98.5 F 98.5 F Pulse Rate 77 83 Pulse Rate [Left P ulse Oximeter] 77 Pulse Rate [Pulse Oximeter] Respiratory Rate 20 22 20 Blood Pressure 193/86 H 197/82 H Blood Pressure [Ri ght Arm] 193/86 H Blood Pressure [Ri ght Upper Arm] Pulse Oximetry 97 99 99 Oxygen Delivery Me thod Room Air Room Air Room Air 12/29/24 01:27 12/29/24 01:57 12/29/24 02:00 Temperature 98.5 F 98.5 F Pulse Rate 83 72 Pulse Rate [Left P ulse Oximeter] 69 Pulse Rate [Pulse Oximeter] Respiratory Rate 22 22 Blood Pressure 197/82 H Blood Pressure [Ri ght Arm] 191/77 H Blood Pressure [Ri ght Upper Arm] Pulse Oximetry 99 98 Oxygen Delivery Me thod Room Air Room Air 12/29/24 02:47 12/29/24 04:04 12/29/24 04:06 Temperature 98.5 F 98.5 F Pulse Rate 62 66 Pulse Rate [Left P ulse Oximeter] 65 Pulse Rate [Pulse Oximeter] Respiratory Rate 22 20 Blood Pressure 147/71 H Blood Pressure [Ri ght Arm] 147/71 H Blood Pressure [Ri ght Upper Arm] Pulse Oximetry 97 99 Oxygen Delivery Ia thod Room Air Room Air 12/29/24 04:21 12/29/24 04:52 12/29/24 05:22 Temperature 98.2 F 98.1 F 98.0 F Pulse Rate 62 67 70 Pulse Rate [Left P ulse Oximeter] Pulse Rate [Pulse Oximeter] Respiratory Rate 20 20 20 Blood Pressure 137/110 H 150/102 H 173/67 H Blood Pressure [Ri ght Arm] Blood Pressure [Ri ght Upper Arm] Pulse Oximetry 98 98 98 Oxygen Delivery Me thod Room Air Room Air Room Air 12/29/24 05:50 12/29/24 05:52 12/29/24 06:42 Temperature 98.1 F 98.1 F 97.7 F Pulse Rate 67 68 Pulse Rate [Left P ulse Oximeter] 65 Pulse Rate [Pulse Oximeter] Respiratory Rate 22 22 20 Blood Pressure 165/67 H 141/63 H Blood Pressure [Ri ght Arm] 165/67 H Blood Pressure [Ri ght Upper Arm] Pulse Oximetry 97 97 98 Oxygen Delivery Me thod Room Air Room Air Room Air 12/29/24 07:00 12/29/24 08:00 12/29/24 08:20 Temperature 97.9 F Pulse Rate 63 Pulse Rate [Left P ulse Oximeter] 59 L 59 L Pulse Rate [Pulse Oximeter] Respiratory Rate 20 20 Blood Pressure Blood Pressure [Ri ght Arm] 149/77 H Blood Pressure [Ri ght Upper Arm] Pulse Oximetry 96 Oxygen Delivery Ia thod Room Air 12/29/24 10:00 12/29/24 11:00 12/29/24 11:00 Temperature 97.6 F Pulse Rate 50 L Pulse Rate [Left P ulse Oximeter] 60 Pulse Rate [Pulse Oximeter] Respiratory Rate 16 18 Blood Pressure Blood Pressure [Ri ght Arm] 149/72 H Blood Pressure [Ri ght Upper Arm] Pulse Oximetry 100 Oxygen Delivery Ia thod Room Air 12/29/24 11:43 12/29/24 12:00 Temperature 97.8 F Pulse Rate Pulse Rate [Left P ulse Oximeter] 49 L 49 L Pulse Rate [Pulse Oximeter] Respiratory Rate 20 Blood Pressure Blood Pressure [Ri ght Arm] 182/72 H Blood Pressure [Ri ght Upper Arm] Pulse Oximetry 98 Oxygen Delivery Ia thod Room Air Documenting provider has reviewed patient's vital signs: yes Labs Labs: Laboratory Results - last 24 hr 12/28/24 12/28/24 12/28/24 16:43 16:50 17:13 WBC 10.32 RBC 1.59 L Hgb 4.8 L* Hct 15.7 L MCV 99 MCH 30 MCHC 31 L RDW Coeff of Get 17.2 H Plt Count 247 Neut % (Auto) 85.7 H Lymph % (Auto) 6.4 L [place] % (Auto) 7.3 Eos % (Auto) 0.0 Baso % (Auto) 0.2 Neut # (Auto) 8.80 H Lymph # (Auto) 0.70 L [place] # (Auto) 0.80 Eos # (Auto) 0.00 Baso # (Auto) 0.02 Abs Immat Gran (auto) 0.04 Imm/Tot Granulo (auto) 0.4 Diff Slide Review Acceptable Review Absolute Retic 0.26 H Percent Retic 16.4 H Immature Retic Fraction 35.3 H Retic Hgb Equivalent 23.8 L INR 1.12 H APTT 28 Sodium 135 Potassium 3.5 L Chloride 104 Carbon Dioxide 20 Anion Gap 11 BUN 23 Creatinine 1.0 Estimated Creat Clear 75.95 Estimated GFR 78 Glucose 107 Lactate 1.9 Calcium 8.5 Magnesium 2.1 Total Bilirubin 0.9 Direct Bilirubin 0.4 AST 108 H ALT 40 Alkaline Phosphatase 44 Troponin I 0.66 H* C-Reactive Protein 2.9 H NT-Pro-B Natriuret Pep 90109 Total Protein 5.6 L Albumin 3.6 Urine Color Urine Appearance Urine pH Ur Specific [place] Urine Protein Urine Glucose (UA) Urine Ketones Urine Blood Urine Nitrite Urine Bilirubin Urine Urobilinogen Ur Leukocyte Esterase Urine RBC Urine WBC Ur Squamous Epith Cells Urine Bacteria Urine Mucus Stool Occult Blood SARS-CoV-2 (PCR) Negative SARS-CoV-2 Influenza Type A (PCR) Negative PCR FLU A Influenza Type B (PCR) Negative PCR FLU B Lab Acknowledgement Test Added POC Troponin I 0.74 H Blood Type A Positive Antibody Screen NEGATIVE Crossmatch ([facility]) See Detail 12/28/24 12/28/24 12/28/24 17:16 17:17 17:31 WBC RBC Hgb Hct MCV MCH MCHC RDW Coeff of Get Plt Count Neut % (Auto) Lymph % (Auto) [place] % (Auto) Eos % (Auto) Baso % (Auto) Neut # (Auto) Lymph # (Auto) [place] # (Auto) Eos # (Auto) Baso # (Auto) Abs Immat Gran (auto) Imm/Tot Granulo (auto) Diff Slide Review Absolute Retic Percent Retic Immature Retic Fraction Retic Hgb Equivalent INR APTT Sodium Potassium Chloride Carbon Dioxide Anion Gap BUN Creatinine Estimated Creat Clear Estimated GFR Glucose Lactate Calcium Magnesium Total Bilirubin Direct Bilirubin AST ALT Alkaline Phosphatase Troponin I C-Reactive Protein NT-Pro-B Natriuret Pep Total Protein Albumin Urine Color Urine Appearance Urine pH Ur Specific [place] Urine Protein Urine Glucose (UA) Urine Ketones Urine Blood Urine Nitrite Urine Bilirubin Urine Urobilinogen Ur Leukocyte Esterase Urine RBC Urine WBC Ur Squamous Epith Cells Urine Bacteria Urine Mucus Stool Occult Blood SARS-CoV-2 (PCR) Influenza Type A (PCR) Influenza Type B (PCR) Lab Acknowledgement Test Added Test Added Test Added POC Troponin I Blood Type Antibody Screen Crossmatch ([facility]) 12/28/24 12/28/24 12/28/24 18:52 19:09 20:30 WBC RBC Hgb Hct MCV MCH MCHC RDW Coeff of Get Plt Count Neut % (Auto) Lymph % (Auto) [place] % (Auto) Eos % (Auto) Baso % (Auto) Neut # (Auto) Lymph # (Auto) [place] # (Auto) Eos # (Auto) Baso # (Auto) Abs Immat Gran (auto) Imm/Tot Granulo (auto) Diff Slide Review Absolute Retic Percent Retic Immature Retic Fraction Retic Hgb Equivalent INR APTT Sodium Potassium Chloride Carbon Dioxide Anion Gap BUN Creatinine Estimated Creat Clear Estimated GFR Glucose Lactate Calcium Magnesium Total Bilirubin Direct Bilirubin AST ALT Alkaline Phosphatase Troponin I C-Reactive Protein NT-Pro-B Natriuret Pep Total Protein Albumin Urine Color Urine Appearance Urine pH Ur Specific [place] Urine Protein Urine Glucose (UA) Urine Ketones Urine Blood Urine Nitrite Urine Bilirubin Urine Urobilinogen Ur Leukocyte Esterase Urine RBC Urine WBC Ur Squamous Epith Cells Urine Bacteria Urine Mucus Stool Occult Blood Positive SARS-CoV-2 (PCR) Influenza Type A (PCR) Influenza Type B (PCR) Lab Acknowledgement Test Added POC Troponin I 1.66 H Blood Type Antibody Screen Crossmatch ([facility]) 12/28/24 12/29/24 12/29/24 23:04 01:13 06:23 WBC RBC Hgb 6.8 L* 7.8 L* Hct MCV MCH MCHC RDW Coeff of Get Plt Count Neut % (Auto) Lymph % (Auto) [place] % (Auto) Eos % (Auto) Baso % (Auto) Neut # (Auto) Lymph # (Auto) [place] # (Auto) Eos # (Auto) Baso # (Auto) Abs Immat Gran (auto) Imm/Tot Granulo (auto) Diff Slide Review Absolute Retic Percent Retic Immature Retic Fraction Retic Hgb Equivalent INR APTT Sodium Potassium Chloride Carbon Dioxide Anion Gap BUN Creatinine Estimated Creat Clear Estimated GFR Glucose Lactate Calcium Magnesium Total Bilirubin Direct Bilirubin AST ALT Alkaline Phosphatase Troponin I 2.12 H* 2.11 H* C-Reactive Protein NT-Pro-B Natriuret Pep Total Protein Albumin Urine Color Yellow Urine Appearance Cloudy A Urine pH 6.0 Ur Specific [place] 1.025 Urine Protein 3+ A Urine Glucose (UA) Negative Urine Ketones 2+ A Urine Blood 3+ A Urine Nitrite Negative Urine Bilirubin 1+ A Urine Urobilinogen 1.0 Ur Leukocyte Esterase Negative Urine RBC 2-5 A Urine WBC 2-5 Ur Squamous Epith Cells Few Urine Bacteria Few A Urine Mucus Few A Stool Occult Blood SARS-CoV-2 (PCR) Influenza Type A (PCR) Influenza Type B (PCR) Lab Acknowledgement POC Troponin I Blood Type Antibody Screen Crossmatch ([facility]) 12/29/24 12/29/24 08:07 12:14 WBC RBC Hgb 8.1 L Hct MCV MCH MCHC RDW Coeff of Get Plt Count Neut % (Auto) Lymph % (Auto) [place] % (Auto) Eos % (Auto) Baso % (Auto) Neut # (Auto) Lymph # (Auto) [place] # (Auto) Eos # (Auto) Baso # (Auto) Abs Immat Gran (auto) Imm/Tot Granulo (auto) Diff Slide Review Absolute Retic Percent Retic Immature Retic Fraction Retic Hgb Equivalent INR APTT Sodium Potassium Chloride Carbon Dioxide Anion Gap BUN Creatinine Estimated Creat Clear Estimated GFR Glucose Lactate Calcium Magnesium Total Bilirubin Direct Bilirubin AST ALT Alkaline Phosphatase Troponin I 1.50 H* C-Reactive Protein NT-Pro-B Natriuret Pep Total Protein Albumin Urine Color Urine Appearance Urine pH Ur Specific [place] Urine Protein Urine Glucose (UA) Urine Ketones Urine Blood Urine Nitrite Urine Bilirubin Urine Urobilinogen Ur Leukocyte Esterase Urine RBC Urine WBC Ur Squamous Epith Cells Urine Bacteria Urine Mucus Stool Occult Blood SARS-CoV-2 (PCR) Influenza Type A (PCR) Influenza Type B (PCR) Lab Acknowledgement Test Added POC Troponin I Blood Type Antibody Screen Crossmatch ([facility])
[2024-12-29] MEDS: PEG-3350 SODIUM CL/BICARB-KCL 4,000 ML SOLN 4000 ML PO (15:49)
[2024-12-29] MEDS: AMLODIPINE 5 MG TABLET PO (18:20)
[2024-12-29] MEDS: TRAZODONE HCL 50 MG TABLET PO (21:20)
--- NOTE | 2024-12-29 22:46 | PC.NURSE ---
Pt has been hypertensive this shift, provider notified and started on amlodipine. HR consistently 55-60. Afebrile. Pt received first half of bowel prep [id number]; he has had one bowel movement this shift. Pt requires much encouragement to follow plan of care. Tolerates ambulation in room with walker well. Uses call light appropriately.
[2024-12-30] VITALS (12 sets, daily range): BP systolic 182–216; BP diastolic 70–99; PULSE 44–70; RESP 16–20; TEMP 36.2–36.6; O2SAT 93–98; BMI 24.8
--- NOTE | 2024-12-30 06:49 | PC.NURSE ---
End of shift report: VS WNL.?Pt has permissive hypertension. Afebrile. Denies pain. Tolerating clear diet. 0500 bowel prep given. SL in right forearm and L AC. Ambulates SBA, GB, W. 1 Large black diarrhea incontinent BM this shift. Tolerating clear liquid diet. ?
[2024-12-30 06:56] LABS: HCO3 VBG 27 mmol/L (21-28); PCO2 VBG 41 mmHG (40-50); PO2 VBG < 30.1 mmHG (25-47); pH VBG 7.416 (7.32-7.43)
[2024-12-30 07:07] LABS: Mean Corpuscular HGB Conc 33 gm/dL (32-36); Mean Corpuscular Hemoglobin 31 pg (26-34); Mean Corpuscular Volume 93 fL (80-100); Platelet Count* 213 K/uL (140-440); Red Blood Count 2.59 m/uL (4.30-5.90)
[2024-12-30 07:19] LABS: Albumin* 3.5 g/dL (3.3-5.0); Chloride* 100 mmol/L (96-114); Sodium* 134 mmol/L (135-149)
[2024-12-30 07:20] LABS: Iron* 27 ug/dL (49-181)
[2024-12-30 07:23] LABS: Alanine Aminotransferase* 42 U/L (4-50); Alkaline Phosphatase* 50 U/L (40-150); Anion Gap 8 mEq/L (7-15); Aspartate Amino Transferase* 85 U/L (12-35); Bilirubin Direct* 0.4 mg/dL (0.0-0.5); Bilirubin Total* 1.3 mg/dL (0.1-1.5); Blood Urea Nitrogen* 14 mg/dL (7-30); Carbon Dioxide* 26 mmol/L (20-32); Creatinine* 0.9 mg/dL (0.5-1.5); Est. Creatinine Clearance* 69.91; Estimated Glomerular Filt Rate 88 ml/min; Glucose* 83 mg/dL (60-115); Hemoglobin* 7.9 gm/dL (13.5-17.5); Phosphorus* 2.5 mg/dL (2.5-4.5); Slide Review Reflex No; Total Protein* 5.6 g/dL (6.0-8.3)
[2024-12-30 07:25] LABS: C Reactive Protein* 3.4 mg/dL (0.5-1.0)
[2024-12-30 07:27] LABS: Hemoglobin A1C* 4.5 % (0-5.6)
[2024-12-30 07:29] LABS: Percent Iron Saturation 8 % (20-50); Total Iron Binding Capacity 344 ug/dL (261-462)
[2024-12-30 07:55] LABS: Ferritin* 43.9 ng/mL (17.9-464.0)
[2024-12-30 07:59] LABS: Potassium* 2.8 mmol/L (3.6-5.1)
[2024-12-30 08:00] LABS: Troponin I* 1.23 ng/mL (0.01-0.04)
[2024-12-30] MEDS: AMLODIPINE 5 MG TABLET PO (08:28)
[2024-12-30] MEDS: LOSARTAN POTASSIUM 50 MG TABLET PO (08:29)
[2024-12-30] MEDS: METOPROLOL TARTRATE 25 MG TABLET 75 MG PO ×2 (08:29→21:19)
[2024-12-30] MEDS: OMEPRAZOLE 20 MG CAPSULE DR PO ×2 (08:29→21:19)
[2024-12-30] MEDS: POTASSIUM CHLORIDE 10 MEQ/100 ML PIGGYBACK 100 MEQ IVPB ×2 (08:29→10:02)
[2024-12-30] MEDS: POTASSIUM BICARB 25 MEQ EFFERVESCENT TAB PO ×3 (11:17→16:41)
--- NOTE | 2024-12-30 15:47 | PM.IMPN1 ---
Assessment and Plan Assessment and plan (1) GI bleed: Problem comment: -GI bleed hemoglobin from 4.8-7.8 with 3 units of blood. Now appears stable. Move out of CCU. -f/u serial hbg and troponins -not actively bleeding on admission -no shock so likely this has developed over weeks/months EGD and colonoscopy tomorrow -holding plavix and aspirin currently. With fairly severe diffuse vascular disease would like to restart at least 1 antiplatelet agent if bleeding source can be identified and stopped Status: Acute (2) Acute blood loss anemia: Problem comment: Due to GI bleeding. Pending endoscopy. Monitor hemoglobin and vitals Status: Acute (3) Non-ST elevated myocardial infarction (non-STEMI): Problem comment: -nonstemi - from demand of low hemoglobin and afib rvr -f/u hemodynamics; correct anemia, discuss with cards on 12/30 -reviewed serial EKG - no active ischemia/No chest pain -echo relatively normal Status: Acute (4) Intraabdominal mass: Problem comment: Soft tissue lesions adjacent to descending colon. Obtain colonoscopy and then consider PET scan depending on clinical course Status: Acute (5) Atrial fibrillation with rapid ventricular response: Problem comment: -by the time he arrived on the floor his heart rate was back in the 70s. And he converted back to sinus. No evidence of ischemia Status: Acute (6) (HFpEF) heart failure with preserved ejection fraction: Problem comment: -last echo was 3 months out from TAVR. Aug 14 -EF 60-65% normal left ventricular function, aortic valve replaced Status: Acute (7) Carotid stenosis, bilateral: Problem comment: Pending right carotid endarterectomy in January 2025 Status: Acute (8) Type 2 diabetes mellitus: Problem comment: -last A1C was 5.9 in 10/15 Status: Acute (9) Wet senile macular degeneration: Problem comment: Functionally with very poor site Status: Acute (10) Driving safety issue: Problem comment: [employer] safety evaluation before returning to driving. Quite poor vision. Status: Acute (11) Cognitive impairment: Problem comment: Obtain [place] [employer] Status: Acute (12) Frailty syndrome in geriatric patient: Problem comment: Ongoing assessment of his ability to manage ADLs and provide self-care and monitoring of chronic medical problems Status: Acute (13) Coronary artery disease: Status: Acute (14) Peripheral vascular disease: Status: Acute (15) Tobacco dependence: Problem comment: Declines nicotine replacement. Encourage smoking cessation Status: Acute (16) Weight loss, non-intentional: Problem comment: Patient reporting weight loss over the past year. In September 2023 he was 102 kg, in December he was 97 and 0.5 kg and on this admission 85.5 kg. Status: Acute Plan Continue in hospital for ongoing evaluation management of multiple problems noted above. Assess ability to return home to independent living in light of his medical problems, disabilities including vision. Total Time Spent Total Time Spent: Total time spent today is 40 minutes in coordination of care, discussion with patient other providers ongoing management of bleeding, endoscopy, heart disease Subjective Date Seen: 12/30/24 Interval history: HPI: 79-year-old who lives alone and has been experiencing weakness and falls over the last week, worse in the last 2 days. He describes striking his head hard during 1 of his falls. 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 His ex- was worried about him and called EMS for him. long-time smoker, has a chronic cough and history of COPD. No fever. He is unsure about his bowel movements. Denies vomiting. He is not sure when he took his medications last, specifically he takes Plavix and aspirin and statin for widespread vascular disease, metoprolol for paroxysmal AFib, metformin for diabetes. At the time of admission patient was found to have a hemoglobin of 4.8 with melanotic stools. Is also found to have an elevated troponin at 0.74. He had no chest pain, dyspnea. EKG is noted to show LVH but otherwise unremarkable. Abdomen pelvis CT showed soft tissue lesions adjacent to but not obviously in the left colon. No other obvious signs of metastases. Recommend colonoscopy and or PET-CT. Head CT is unremarkable. Chest x-ray shows no acute changes and emphysema. He is transfused 3 units of blood and hemoglobin went from 4.8 to 8.1 today. He does report feeling better with this. Echocardiogram shows ejection fraction of 50 55%, aortic valve replacement without stenosis or regurgitation. Moderate mitral stenosis and mild to moderate mitral regurgitation. Troponin was 0.66 on admission, increased to 2.1 and then came down to 1.5 today. Electrocardiogram and telemetry showed no changes. Vital signs have been stable and normal. Patient is fairly severely visually impaired. He is not sure if he can tell the color of his stool at home and does not know if he has had a change in stool color for some time. He has had occasional constipation but no diarrhea. He does not remember his last colonoscopy. He is on aspirin and Plavix. He continues to smoke cigarettes. He continues to drive a car. He lives alone. His ex- is his primary support. He is scheduled for carotid surgery in early January. I believe at [facility]. 12/30/2024: Patient was unable to achieve adequate colon prep so this will be postponed till tomorrow. Continues to have melanotic diarrhea. He otherwise reports feeling fine. No chest pain or dyspnea. No abdominal pain. He is hungry. Blood pressure was markedly elevated overnight. Potassium was quite low. Additional oral antihypertensive had been initiated. He does acknowledge that he has had longstanding diagnosis of hypertension for which he takes only metoprolol Exam Narrative: Exam Narrative: He is alert and appears in no distress. Respirations are clear to auscultation. Cardiovascular: S1, S2, regular rate and rhythm abdomen: Bowel sounds active. Abdomen is soft without tenderness or mass. Extremities without edema. Const: Vital Signs, click to edit/add: Vital Signs - 24 hr 12/29/24 18:20 12/29/24 18:23 12/29/24 21:20 Temperature Pulse Rate Pulse Rate [Left P ulse Oximeter] 51 L 55 L Respiratory Rate 16 Blood Pressure [Ri ght Arm] 208/77 H 208/77 H 209/80 H Pulse Oximetry Oxygen Delivery Me thod 12/29/24 21:45 12/29/24 23:00 12/30/24 01:21 Temperature 98.4 F Pulse Rate 48 L Pulse Rate [Left P ulse Oximeter] 60 Respiratory Rate 16 Blood Pressure [Ri ght Arm] 208/84 H Pulse Oximetry 94 97 Oxygen Delivery Me thod Room Air 12/30/24 03:02 12/30/24 07:04 12/30/24 07:30 Temperature 97.7 F 97.7 F Pulse Rate 70 Pulse Rate [Left P ulse Oximeter] 55 L 68 Respiratory Rate 20 18 Blood Pressure [Ri ght Arm] 198/70 H 216/99 H Pulse Oximetry 97 97 Oxygen Delivery Me thod Room Air Room Air 12/30/24 07:30 12/30/24 11:22 12/30/24 15:45 Temperature 97.9 F Pulse Rate 57 L Pulse Rate [Left P ulse Oximeter] 68 59 L Respiratory Rate 18 18 Blood Pressure [Ri ght Arm] 186/71 H Pulse Oximetry 93 Oxygen Delivery Me thod Room Air Documenting provider has reviewed patient's vital signs: yes Labs Labs: Laboratory Results - last 24 hr 12/30/24 06:39 WBC 8.40 RBC 2.59 L Hgb 7.9 L* Hct 24.0 L MCV 93 MCH 31 MCHC 33 Plt Count 213 VBG pH 7.416 VBG pCO2 41 VBG pO2 < 30.1 VBG HCO3 27 Sodium 134 L Potassium 2.8 L* Chloride 100 Carbon Dioxide 26 Anion Gap 8 BUN 14 Creatinine 0.9 Estimated Creat Clear 69.91 Estimated GFR 88 Glucose 83 Hemoglobin A1c 4.5 Calcium 8.0 L Phosphorus 2.5 Iron 27 L TIBC 344 % Saturation 8 L Ferritin 43.9 Total Bilirubin 1.3 Direct Bilirubin 0.4 AST 85 H ALT 42 Alkaline Phosphatase 50 Troponin I 1.23 H* C-Reactive Protein 3.4 H Total Protein 5.6 L Albumin 3.5 TSH 5.880 H
[2024-12-30] MEDS: cephALEXin 500 MG CAPSULE PO ×2 (16:53→21:19)
[2024-12-30 18:06] LABS: Hemoglobin* 8.1 gm/dL (13.5-17.5)
--- NOTE | 2024-12-30 18:09 | PC.NURSE ---
End of shift. pt has been pleasant. he is alert x4 but he has very poor vision. he is on a clear liquid diet and no reds. he will get a scope upper, and lower tomorrow. SL in right forearm and L AC. Ambulates SBA. stools are more clear ?
[2024-12-30 18:19] LABS: Potassium* 3.3 mmol/L (3.6-5.1)
[2024-12-30] MEDS: polyethylene glycoL 3350 17 GM PACK 68 GM PO (20:03)
[2024-12-30] MEDS: TRAZODONE HCL 50 MG TABLET PO (21:19)
[2024-12-30] MEDS: SODIUM CHLORIDE 0.9 % (FLUSH) 10 ML SYRINGE 5 ML IVF (21:20)
[2024-12-31] VITALS (10 sets, daily range): BP systolic 127–183; BP diastolic 56–80; PULSE 53–85; RESP 18–22; TEMP 36.3–36.9; O2SAT 95–100
[2024-12-31] MEDS: MAGNESIUM CITRATE 300 ML SOLUTION PO (03:21)
[2024-12-31 06:20] LABS: Basophils Absolute Auto 0.02 K/uL (0.00-0.30); Basophils Percent Auto 0.2 % (0.0-3.0); Eosinophils Absolute Auto 0.14 K/uL (0.00-0.50); Eosinophils Percent Auto 1.6 % (0.0-7.0); Hematocrit 26.5 % (37.0-53.0); Hemoglobin* 8.6 gm/dL (13.5-17.5); Immature Granulocytes Abs Auto 0.02 K/uL (0.00-0.30); Immature Granulocytes Pct Auto 0.2 %; Lymphocytes Percent Auto 7.4 % (20-44); Mean Corpuscular HGB Conc 33 gm/dL (32-36); Mean Corpuscular Hemoglobin 30 pg (26-34); Mean Corpuscular Volume 93 fL (80-100); Monocytes Percent Auto 7.1 % (0.0-11.0); Neutrophils Percent Auto 83.5 % (42.0-72.0); Platelet Count* 218 K/uL (140-440); RDW Coefficient of Variation % 15.5 % (11.5-15.5); Red Blood Count 2.85 m/uL (4.30-5.90); White Blood Count* 8.87 K/uL (4.50-11.00)
[2024-12-31 06:29] LABS: Slide Review Reflex No
[2024-12-31 06:41] LABS: Chloride* 101 mmol/L (96-114); Sodium* 133 mmol/L (135-149)
[2024-12-31 06:42] LABS: Potassium* 3.1 mmol/L (3.6-5.1)
[2024-12-31 06:44] LABS: Blood Urea Nitrogen* 9 mg/dL (7-30); Creatinine* 0.9 mg/dL (0.5-1.5); Est. Creatinine Clearance* 69.91; Estimated Glomerular Filt Rate 88 ml/min
[2024-12-31 06:45] LABS: Anion Gap 9 mEq/L (7-15); Calcium* 8.5 mg/dL (8.4-10.6); Carbon Dioxide* 23 mmol/L (20-32); Glucose* 89 mg/dL (60-115)
[2024-12-31 07:01] LABS: Troponin I* 0.81 ng/mL (0.01-0.04)
--- NOTE | 2024-12-31 07:02 | PC.NURSE ---
[id number]: Patient pleasant and cooperative. Denies pain. Denies N/V/CP. HR in the 40's overnight. Asymptomatic. Patient completed bowel prep; 3 BMs resulted--benitez julio. General surgeon updated. Decision to precede with EGD and colonoscopy. Family updated via phone.
[2024-12-31 08:25] LABS: Magnesium* 2.3 mg/dL (1.5-2.6)
[2024-12-31] MEDS: POTASSIUM BICARB 25 MEQ EFFERVESCENT TAB 50 MEQ PO ×2 (09:49→11:14)
[2024-12-31] MEDS: METOPROLOL TARTRATE 25 MG TABLET 50 MG PO ×2 (09:50→20:51)
[2024-12-31] MEDS: OMEPRAZOLE 20 MG CAPSULE DR PO ×2 (09:50→20:51)
[2024-12-31] MEDS: cephALEXin 500 MG CAPSULE PO ×3 (09:50→20:51)
[2024-12-31] MEDS: LOSARTAN POTASSIUM 50 MG TABLET PO (09:51)
[2024-12-31] MEDS: AMLODIPINE 5 MG TABLET PO (09:51)
[2024-12-31] MEDS: SODIUM CHLORIDE 0.9 % (FLUSH) 10 ML SYRINGE 5 ML IVF ×2 (09:55→20:51)
--- NOTE | 2024-12-31 11:31 | P.ANES_ITS ---
Anesthesia Charges Start Date/Time Anesthesia Start Date: 12/31/24 Anesthesia Start Time: 07:15 Stop Date/Time Anesthesia Stop Date: 12/31/24 Anesthesia Stop Time: 08:15 Summary Extremes of Age - Over 70 or under 1: MDA Coding CPT Codes CPT Codes: ANES UPR LWR GI NDSC PX - 28655 ([id number]) QK - MATHEMATICS DEPARTMENT CHAIR 2-4 CNCRNT ANES PROC, QX - MAGNETIC GRINDER OPERATOR SVC W/ MD MED DIRECTION, P4 - PT W/SEV SYS DIS THREAT LIFE Additional Codes: Summary - Extremes of Age - Over 70 or under 1: MDA ([id number])
--- NOTE | 2024-12-31 12:27 | P.ANES_ITS ---
Anesthesia Charges Start Date/Time Anesthesia Start Date: 12/31/24 Anesthesia Start Time: 07:15 Stop Date/Time Anesthesia Stop Date: 12/31/24 Anesthesia Stop Time: 08:15 Coding CPT Codes CPT Codes: ANES UPR LWR GI NDSC PX - 65951 ([id number]) P4 - PT W/SEV SYS DIS THREAT LIFE, QK - LINE TECHNICIAN 2-4 CNCRNT ANES PROC, QX - FLOWER CUTTER SVC W/ MD MED DIRECTION
--- NOTE | 2024-12-31 12:27 | W.ANESCHARGE ---
Anesthesia Charges Start Date/Time Anesthesia Start Date: 12/31/24 Anesthesia Start Time: 07:15 Stop Date/Time Anesthesia Stop Date: 12/31/24 Anesthesia Stop Time: 08:15 Coding CPT Codes CPT Codes: ANES UPR LWR GI NDSC PX - 01737 ([id number]) P4 - PT W/SEV SYS DIS THREAT LIFE, QK - MANAGER WOUND CARE 2-4 CNCRNT ANES PROC, QX - FIELD WORKER SVC W/ MD MED DIRECTION
--- NOTE | 2024-12-31 13:34 | P.IMPN_ITS ---
Assessment and Plan Assessment and plan (1) GI bleed: Problem comment: -GI bleed hemoglobin from 4.8-7.8 with 3 units of blood. Now appears stable. -f/u serial hbg and troponins -not actively bleeding on admission -no shock so likely this has developed over weeks/months Colonoscopy showed multiple sub cm polyps. EGD showed gastric ulcers which were not currently bleeding Resume clopidogrel at discharge. Status: Acute (2) Acute blood loss anemia: Problem comment: Due to GI bleeding. Hemoglobin has been stable. Resume clopidogrel at discharge Status: Acute (3) Non-ST elevated myocardial infarction (non-STEMI): Problem comment: -nonstemi - from demand of low hemoglobin and afib rvr No significant electrocardiographic changes. Echocardiogram is unremarkable. Troponins trending downward. Outpatient follow-up with Cardiology. Status: Acute (4) Intraabdominal mass: Problem comment: Soft tissue lesions adjacent to descending colon. Colonoscopy showed no lesion in the descending colon adjacent to the area of the mass. Outpatient follow-up with possible PET scan. Status: Acute (5) Atrial fibrillation with rapid ventricular response: Problem comment: -by the time he arrived on the floor his heart rate was back in the 70s. And he converted back to sinus. With anemia and AFib with RVR had a bump in troponins but no other complications. Status: Acute (6) (HFpEF) heart failure with preserved ejection fraction: Problem comment: -last echo was 3 months out from TAVR. Aug 14 -EF 60-65% normal left ventricular function, aortic valve replaced Status: Acute (7) Carotid stenosis, bilateral: Problem comment: Pending right carotid endarterectomy in January 2025. Review with Cardiology given current complications in the hospital Status: Acute (8) Type 2 diabetes mellitus: Problem comment: -last A1C was 5.9 in 10/15. Status: Acute (9) Wet senile macular degeneration: Problem comment: Functionally with very poor site. Recommended stop driving. Patient agrees to this. If he changes his mind I would recommend referral to Department of vehicle Services for dedicated regional driver testing. Continue to follow-up with ophthalmology for injections for wet macular degeneration Status: Acute (10) Driving safety issue: Problem comment: Patient agrees to stop driving. If he changes his mind refer to department of vehicle Services at the [facility] for dedicated regional driver testing Status: Acute (11) Cognitive impairment: Problem comment: Blind [place] 15/22 Status: Acute (12) Frailty syndrome in geriatric patient: Problem comment: Ongoing assessment of his ability to manage ADLs and provide self-care and monitoring of chronic medical problems. Home OT PT and nursing to do ongoing outpatient assessment. Patient declines referral to assisted living Status: Acute (13) Coronary artery disease: Problem comment: Follow-up with cardiology outpatient Status: Acute (14) Peripheral vascular disease: Problem comment: Pending carotid endarterectomy. Status: Acute (15) Tobacco dependence: Problem comment: Declines nicotine replacement. Encourage smoking cessation Status: Acute (16) Weight loss, non-intentional: Problem comment: Patient reporting weight loss over the past year. In September 2023 he was 102 kg, in December he was 97 and 0.5 kg and on this admission 85.5 kg. Ongoing outpatient monitoring. Status: Acute Plan Continue in hospital for 1 more day of monitoring for bleeding, fluid and electrolyte problems, cardiac issues. Anticipate discharge to home tomorrow with home care, home PT OT. Will need follow-up with primary care in [place] to address electrolyte problems, blood pressure, anemia, Total Time Spent Total Time Spent: Total time spent today is 60 minutes in coordination of care and discussing with patient, his ex- at his request, and other providers ongoing evaluation management and discharge planning Subjective Date Seen: 12/31/24 Interval history: HPI: 79-year-old who lives alone and has been experiencing weakness and falls over the last week, worse in the last 2 days. He describes striking his head hard during 1 of his falls. 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 His ex- was worried about him and called EMS for him. long-time smoker, has a chronic cough and history of COPD. No fever. He is unsure about his bowel movements. Denies vomiting. He is not sure when he took his medications last, specifically he takes Plavix and aspirin and statin for widespread vascular disease, metoprolol for paroxysmal AFib, metformin for diabetes. At the time of admission patient was found to have a hemoglobin of 4.8 with melanotic stools. Is also found to have an elevated troponin at 0.74. He had no chest pain, dyspnea. EKG is noted to show LVH but otherwise unremarkable. Abdomen pelvis CT showed soft tissue lesions adjacent to but not obviously in the left colon. No other obvious signs of metastases. Recommend colonoscopy and or PET-CT. Head CT is unremarkable. Chest x-ray shows no acute changes and emphysema. He is transfused 3 units of blood and hemoglobin went from 4.8 to 8.1 today. He does report feeling better with this. Echocardiogram shows ejection fraction of 50 55%, aortic valve replacement without stenosis or regurgitation. Moderate mitral stenosis and mild to moderate mitral regurgitation. Troponin was 0.66 on admission, increased to 2.1 and then came down to 1.5 today. Electrocardiogram and telemetry showed no changes. Vital signs have been stable and normal. Patient is fairly severely visually impaired. He is not sure if he can tell the color of his stool at home and does not know if he has had a change in stool color for some time. He has had occasional constipation but no diarrhea. He does not remember his last colonoscopy. He is on aspirin and Plavix. He continues to smoke cigarettes. He continues to drive a car. He lives alone. His ex- is his primary support. He is scheduled for carotid surgery in early January. I believe at [facility]. 12/30/2024: Patient was unable to achieve adequate colon prep so this will be postponed till tomorrow. Continues to have melanotic diarrhea. He otherwise reports feeling fine. No chest pain or dyspnea. No abdominal pain. He is hungry. Blood pressure was markedly elevated overnight. Potassium was quite low. Additional oral antihypertensive had been initiated. He does acknowledge that he has had longstanding diagnosis of hypertension for which he takes only metoprolol. 12/31/2024: Patient was bradycardic and so metoprolol was reduced from 75 b.i.d. to 50 b.i.d.. Blood pressure remains elevated with new medications amlodipine 5 mg and losartan 50 mg daily. Patient also remains hypokalemic despite initial attempts to do replacement. Additional replacement pending and further evaluation for hypertension and hypokalemia may be warranted depending on clinical course. I discussed with patient that he needs to stop driving due to his impaired vision. Agreed to this. Additional information is that he was able to renew his license during COV without doing a vision test. Does see an eye doctor for eye injections for his macular degeneration though he does not recall this. EGD showed multiple nonbleeding gastric ulcers. Colonoscopy showed multiple subcentimeter polyps which were biopsied. Exam Narrative: Exam Narrative: He is alert and appears in no distress. Respirations are clear to auscultation. Cardiovascular: S1, S2, regular rate and rhythm. Abdomen: Bowel sounds active. Abdomen is soft without tenderness. No edema. Const: Vital Signs, click to edit/add: Vital Signs - 24 hr 12/30/24 15:30 12/30/24 15:45 12/30/24 17:20 Temperature 97.2 F L Pulse Rate 57 L Pulse Rate [Left P ulse Oximeter] 54 L 54 L Respiratory Rate 16 16 Blood Pressure [Ri ght Arm] 182/87 H Pulse Oximetry 98 Oxygen Delivery Me thod Room Air 12/30/24 19:54 12/30/24 22:00 12/30/24 22:33 Temperature 97.6 F Pulse Rate 47 L Pulse Rate [Left P ulse Oximeter] 65 Respiratory Rate 20 Blood Pressure [Ri ght Arm] 189/74 H Pulse Oximetry 93 93 Oxygen Delivery Nj thod Room Air 12/30/24 22:41 12/31/24 01:25 12/31/24 03:23 Temperature 97.5 F L 98.4 F Pulse Rate Pulse Rate [Left P ulse Oximeter] 44 L 55 L 58 L Respiratory Rate 18 20 Blood Pressure [Ri ght Arm] 155/68 H 183/74 H Pulse Oximetry 100 95 Oxygen Delivery Nj thod Room Air Room Air 12/31/24 07:00 12/31/24 09:01 12/31/24 09:01 Temperature 97.9 F Pulse Rate 54 L Pulse Rate [Left P ulse Oximeter] 85 85 Respiratory Rate 20 18 Blood Pressure [Ri ght Arm] 127/80 Pulse Oximetry 97 Oxygen Delivery Nj thod Room Air 12/31/24 11:58 Temperature 97.9 F Pulse Rate Pulse Rate [Left P ulse Oximeter] 68 Respiratory Rate 18 Blood Pressure [Ri ght Arm] 170/60 H Pulse Oximetry 97 Oxygen Delivery Nj thod Room Air Documenting provider has reviewed patient's vital signs: yes Labs Labs: Laboratory Results - last 24 hr 12/30/24 12/31/24 12/31/24 18:04 06:12 08:08 WBC 8.87 RBC 2.85 L Hgb 8.1 L 8.6 L Hct 26.5 L MCV 93 MCH 30 MCHC 33 RDW Coeff of Get 15.5 Plt Count 218 Neut % (Auto) 83.5 H Lymph % (Auto) 7.4 L [place] % (Auto) 7.1 Eos % (Auto) 1.6 Baso % (Auto) 0.2 Neut # (Auto) 7.40 H Lymph # (Auto) 0.70 L [place] # (Auto) 0.60 Eos # (Auto) 0.14 Baso # (Auto) 0.02 Abs Immat Gran (auto) 0.02 Imm/Tot Granulo (auto) 0.2 Sodium 133 L Potassium 3.3 L 3.1 L Chloride 101 Carbon Dioxide 23 Anion Gap 9 BUN 9 Creatinine 0.9 Estimated Creat Clear 69.91 Estimated GFR 88 Glucose 89 Calcium 8.5 Magnesium 2.3 Troponin I 0.81 H* Lab Acknowledgement Test Added
[2024-12-31 13:36] LABS: Potassium Urine Random* 45.7
--- NOTE | 2024-12-31 14:01 | PC.SOCIAL ---
Addendum entered by RM Berger 01/03/25 09:32: Home Care need follow up: On 01/03/25, received voice mail from Brian at [facility], stating pt is outside their service area and they are unable to accept the referral. stock worker and deliverer to follow up on home care order written 12/31/24 to locate a home care agency able to accept this referral. Original Note: Discharge planning: Met with pt regarding d/c plan and home health order. Pt confirms he lives alone in his trail home in [place], [place]. His ex- is his emergency contact and she and one of his adult daughters, lives in [place], [place] and his other adult daughter lives in [place], [place]. He is planning to return home at discharge and is not interested in placement in an assisted living or group living situation. Pt states he is willing to accept more help and check-ins by friends and family. Pt states he has a cousin who lives in [place] who has offered to come by more often to check on him and two friends who he sees daily in the [facility] will also check on him frequently. Pt states the reason he could could not call for help when he could not get out of bed was because he can not see the small numbers on his cell phone to make a call. Pt states he is planning to get a few large button house phones that he could use if needed. He is not interested in an emergency alert system but is willing to accept information on this option and states his daughter will help him look at it to decide if this will be a good option for him. Pt is interested in home delivered meals. stock worker and deliverer to provide him with written information on home delivered meals in his area. Per MD order for home care PT/OT/RN, provided pt with a resource sheet of agencies providing home care. Pt is interested in any agency that serves his area and approved of plan for social services coordinator to try [facility] and [facility] for availability. Called [facility] [phone] and faxed [phone] referral to [facility] intake as they will review and confirm if they have availability for admit. Home Care is aware of planned discharge tomorrow. stock worker and deliverer to follow up as needed.
--- NOTE | 2024-12-31 14:32 | PC.NURSE ---
End of shift. pt is still very pleasant. he is alert x4 vision is the same. . he had his scope upper, and lower done. he is on a reg diet. SL in right forearm and L AC are patent. Ambulates SBA. he is eating, drinking and voiding.
[2024-12-31 15:32] LABS: Potassium* 3.9 mmol/L (3.6-5.1)
[2024-12-31] MEDS: TRAZODONE HCL 50 MG TABLET PO (20:51)
[2025-01-01] VITALS (15 sets, daily range): BP systolic 141–198; BP diastolic 64–114; PULSE 57–95; RESP 16–22; TEMP 36.3–37; O2SAT 97–99
[2025-01-01 05:04] LABS: Basophils Absolute Auto 0.01 K/uL (0.00-0.30); Basophils Percent Auto 0.1 % (0.0-3.0); Eosinophils Absolute Auto 0.16 K/uL (0.00-0.50); Eosinophils Percent Auto 1.8 % (0.0-7.0); Hematocrit 24.2 % (37.0-53.0); Immature Granulocytes Abs Auto 0.02 K/uL (0.00-0.30); Immature Granulocytes Pct Auto 0.2 %; Mean Corpuscular HGB Conc 32 gm/dL (32-36); Mean Corpuscular Hemoglobin 30 pg (26-34); Mean Corpuscular Volume 93 fL (80-100); Monocytes Percent Auto 8.3 % (0.0-11.0); Neutrophils Percent Auto 80.6 % (42.0-72.0); Platelet Count* 222 K/uL (140-440); RDW Coefficient of Variation % 14.8 % (11.5-15.5); Red Blood Count 2.61 m/uL (4.30-5.90); White Blood Count* 9.11 K/uL (4.50-11.00)
[2025-01-01 05:16] LABS: Chloride* 100 mmol/L (96-114); Potassium* 3.7 mmol/L (3.6-5.1); Sodium* 131 mmol/L (135-149)
[2025-01-01 05:19] LABS: Anion Gap 3 mEq/L (7-15); Blood Urea Nitrogen* 10 mg/dL (7-30); Carbon Dioxide* 28 mmol/L (20-32); Creatinine* 0.9 mg/dL (0.5-1.5); Est. Creatinine Clearance* 69.91; Estimated Glomerular Filt Rate 88 ml/min
[2025-01-01 05:20] LABS: Calcium* 8.1 mg/dL (8.4-10.6); Glucose* 95 mg/dL (60-115); Hemoglobin* 7.8 gm/dL (13.5-17.5); Slide Review Reflex No
--- NOTE | 2025-01-01 06:30 | PC.NURSE ---
[id number]: Patient pleasant and cooperative. Independent in room. Denies pain. Denies N/V. Eating and voiding.
[2025-01-01] MEDS: cephALEXin 500 MG CAPSULE PO ×3 (08:36→21:02)
[2025-01-01] MEDS: AMLODIPINE 5 MG TABLET PO (08:36)
[2025-01-01] MEDS: OMEPRAZOLE 20 MG CAPSULE DR PO ×2 (08:36→21:02)
[2025-01-01] MEDS: LOSARTAN POTASSIUM 50 MG TABLET PO (08:36)
[2025-01-01] MEDS: METOPROLOL TARTRATE 25 MG TABLET 50 MG PO ×2 (08:36→21:02)
[2025-01-01] MEDS: SODIUM CHLORIDE 0.9 % (FLUSH) 10 ML SYRINGE 5 ML IVF ×2 (08:36→21:02)
--- NOTE | 2025-01-01 12:06 | P.IMPN_ITS ---
Assessment and Plan Assessment and plan (1) GI bleed: Problem comment: - GI bleed hemoglobin from 4.8-->7.8 -->8.6, s/p 3U PRBCs - Colonoscopy and Endoscopy performed 12/31: multiple sub cm polyps and EGD showed gastric ulcers which were not currently bleeding - plan to resume Clopidogrel upon d/c - on 01/01; feeling weaker with Hgb down to 7.8 again; amenable to 4th U PRBCs Status: Acute (2) Acute blood loss anemia: Problem comment: - 2/2 GI bleeding, presented with Hgb of 4.8 Status: Acute (3) Non-ST elevated myocardial infarction (non-STEMI): Problem comment: - 2/2 demand of low hemoglobin and afib rvr - troponin peaked at 2.12, no CP - TTE performed during stay with results below (mild HFrEF) Final Impressions: 1. Normal LV size, mildly increased wall thickness, estimated EF of 50 - 55%. 2. RV size not well-visualized, mildly reduced systolic function. 3. S/P 29 mm Armando 3 bioprosthesis AVR, no stenosis (MG 6 mmHg), and no regurgitation. 4. Significant mitral annular calcification and anterior leaflet sclerosis, moderate stenosis (MG 6 mmHg @ HR 60 bpm), mild-moderate regurgitation. 5. Unable to estimate PA pressure. 6. Dilated IVC without respiratory variation, estimated RA pressure 15 mmHg. Status: Acute (4) Intraabdominal mass: Problem comment: - Soft tissue lesions adjacent to descending colon, no lesion identified during colonoscopy - outpatient follow-up with possible PET scan. Status: Acute (5) Atrial fibrillation with rapid ventricular response: Problem comment: - RVR in ER; upon arrival to the floor, HR back in the 70s, SR Status: Acute (6) Carotid stenosis, bilateral: Problem comment: - scheduled for R carotid endarterectomy in January 2025, will need to f/u with PCP preoperatively Status: Acute (7) Type 2 diabetes mellitus: Problem comment: -last A1C was 5.9 in 10/15. Status: Acute (8) Wet senile macular degeneration: Problem comment: - Functionally with very poor sight - Recommended stop driving and patient in agreement - Continue to follow-up with ophthalmology for injections for wet macular degeneration Status: Acute (9) Cognitive impairment: Problem comment: - Blind [place] during stay Status: Acute (10) Frailty syndrome in geriatric patient: Problem comment: - seen by therapies, home health recommended as patient declines SNF Status: Acute (11) Coronary artery disease: Problem comment: Follow-up with cardiology outpatient Status: Acute (12) Peripheral vascular disease: Problem comment: Pending carotid endarterectomy. Status: Acute (13) Tobacco dependence: Problem comment: - Declines nicotine replacement. Encourage smoking cessation, patient precontemplative Status: Acute (14) Weight loss, non-intentional: Problem comment: - patient reports, objectively down from 102kg --> 87 kg from September 2023 to December 2024 - ongoing outpatient monitoring. Status: Acute Plan - per above, will stay one more day for blood and monitoring - ex Jessie (primary contact) updated by phone, questions answered, likely home tomorrow Subjective Date Seen: 01/01/25 Interval history: Obie COLEMAN) is a 79 yo male who lives independently in a [place] near [facility], and was admitted to the hospital on 12/28/2024 for weakness and falls. 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 Since admission: - admission CT of A/P: soft tissues lesion near L colon, scope recommended - admission Hgb 4.8; has received 3U of PRBCs, ASA and Plavix HELD - colonoscopy and endoscopy completed 12/31 (nonbleeding gastric ulcers, + polyps) - NSTEMI with troponin peak of 2.12, TTE results c/w HFrEF (EF 50-55%), AVR stable - hypokalemia requiring supplementation, K james of 2.8 This morning, PORSHA had hoped to discharge home, but is feeling weak and hemoglobin is 7.8. He is amenable to a 4th unit of blood. Potassium within normal limits at 3.7 Continues to work with therapies for weakness, home health recommended at this time. Exam Narrative: Exam Narrative: GEN: Alert and interactive, having breakfast in bedside chair CV: RRR, No concerning murmurs R: LCTA bilaterally without concerning wheezing, breathing comfortably and speaking in full sentences Ab: Soft and nontender Ext: wwp, no concerning edema Skin: Scattered bruising on extremities Neuro: Visual impairment is evident, no other focal abnormalities, seen ambulating with walker during therapy Psych: Appropriate Const: Vital Signs, click to edit/add: Vital Signs - 24 hr 12/31/24 15:00 12/31/24 16:41 12/31/24 19:28 Temperature 98.1 F 97.3 F L Pulse Rate 60 Pulse Rate [Left P ulse Oximeter] 70 67 Respiratory Rate 20 20 Blood Pressure [Ri ght Arm] 130/58 L 127/56 L Pulse Oximetry 98 99 Oxygen Delivery Me thod Room Air Room Air 12/31/24 22:00 12/31/24 23:00 12/31/24 23:00 Temperature 97.7 F Pulse Rate 53 L Pulse Rate [Left P ulse Oximeter] 59 L Respiratory Rate 22 Blood Pressure [Ri ght Arm] 158/73 H Pulse Oximetry 99 97 Oxygen Delivery Me thod Room Air 01/01/25 02:41 01/01/25 07:53 01/01/25 07:55 Temperature 97.4 F L 97.5 F L Pulse Rate 73 Pulse Rate [Left P ulse Oximeter] 59 L 67 Respiratory Rate 22 18 Blood Pressure [Ri ght Arm] 194/80 H 198/80 H Pulse Oximetry 98 99 Oxygen Delivery Me thod Room Air Room Air 01/01/25 11:57 Temperature 97.7 F Pulse Rate Pulse Rate [Left P ulse Oximeter] 64 Respiratory Rate 16 Blood Pressure [Ri ght Arm] 141/65 H Pulse Oximetry 98 Oxygen Delivery Me thod Room Air Labs Labs: Laboratory Results - last 24 hr 12/31/24 12/31/24 01/01/25 11:54 15:11 04:55 WBC 9.11 RBC 2.61 L Hgb 7.8 L* Hct 24.2 L MCV 93 MCH 30 MCHC 32 RDW Coeff of Get 14.8 Plt Count 222 Neut % (Auto) 80.6 H Lymph % (Auto) 9.0 L [place] % (Auto) 8.3 Eos % (Auto) 1.8 Baso % (Auto) 0.1 Neut # (Auto) 7.30 H Lymph # (Auto) 0.80 L [place] # (Auto) 0.80 Eos # (Auto) 0.16 Baso # (Auto) 0.01 Abs Immat Gran (auto) 0.02 Imm/Tot Granulo (auto) 0.2 Sodium 131 L Potassium 3.9 3.7 Chloride 100 Carbon Dioxide 28 Anion Gap 3 L BUN 10 Creatinine 0.9 Estimated Creat Clear 69.91 Estimated GFR 88 Glucose 95 Calcium 8.1 L Ur Random Potassium 45.7
[2025-01-01 13:47] LABS: H pylori Ag Stool* Negative (Negative)
[2025-01-01] MEDS: POTASSIUM BICARB 25 MEQ EFFERVESCENT TAB PO ×2 (14:54→17:57)
[2025-01-01] MEDS: FUROSEMIDE 10 MG/ML inj 20 MG IV (16:35)
--- NOTE | 2025-01-01 18:20 | PC.NURSE ---
Pt doing well today. Denies pain, appetite good. Pt reported this morning that his fingers and mouth felt numb and tingly, this was reported to provider. MD discussed with pt that symptoms could be related to anemia, pt's hgb was 7.8 this morning. 1 unit PRBC was administered at approximately 1400, tolerated well. No further complaints from pt regarding numbness. Ambulating in room independently and tolerating well.
[2025-01-01] MEDS: TRAZODONE HCL 50 MG TABLET PO (21:02)
[2025-01-02 03:00] VITALS: PULSE 56; RESP 20
[2025-01-02 05:07] VITALS: BP 173/85
[2025-01-02 05:50] LABS: Basophils Absolute Auto 0.01 K/uL (0.00-0.30); Basophils Percent Auto 0.1 % (0.0-3.0); Eosinophils Absolute Auto 0.18 K/uL (0.00-0.50); Eosinophils Percent Auto 1.9 % (0.0-7.0); Hematocrit 30.5 % (37.0-53.0); Hemoglobin* 9.9 gm/dL (13.5-17.5); Immature Granulocytes Abs Auto 0.02 K/uL (0.00-0.30); Immature Granulocytes Pct Auto 0.2 %; Lymphocytes Percent Auto 9.4 % (20-44); Mean Corpuscular HGB Conc 33 gm/dL (32-36); Mean Corpuscular Hemoglobin 30 pg (26-34); Mean Corpuscular Volume 91 fL (80-100); Monocytes Percent Auto 7.4 % (0.0-11.0); Platelet Count* 220 K/uL (140-440); RDW Coefficient of Variation % 14.7 % (11.5-15.5); Red Blood Count 3.34 m/uL (4.30-5.90); White Blood Count* 9.62 K/uL (4.50-11.00)
--- NOTE | 2025-01-02 05:53 | PC.NURSE ---
[id number]: Patient talkative and cooperative. Independent in room. Denies pain. Denies N/V/CP. Showered during shift. Eagerly awaiting d/c.
[2025-01-02 06:02] LABS: Slide Review Reflex No
[2025-01-02 06:12] LABS: Chloride* 97 mmol/L (96-114); Sodium* 131 mmol/L (135-149)
[2025-01-02 06:13] LABS: Potassium* 4.5 mmol/L (3.6-5.1)
[2025-01-02 06:15] LABS: Blood Urea Nitrogen* 11 mg/dL (7-30); Creatinine* 0.9 mg/dL (0.5-1.5); Est. Creatinine Clearance* 69.91; Estimated Glomerular Filt Rate 88 ml/min
[2025-01-02 06:16] LABS: Anion Gap 3 mEq/L (7-15); Calcium* 8.7 mg/dL (8.4-10.6); Carbon Dioxide* 31 mmol/L (20-32); Glucose* 99 mg/dL (60-115); Magnesium* 2.1 mg/dL (1.5-2.6)
[2025-01-02 07:00] VITALS: PULSE 64
[2025-01-02 07:50] VITALS: BP 200/80; PULSE 76; RESP 18; O2SAT 99
--- NOTE | 2025-01-02 08:25 | P.DS_ITS ---
DS: Providers Provider Date Seen: 01/02/25 Date of admission: 12/28/24 22:32 Primary care physician: Kelton Dillon DO Admitting Clinician: Maxine Moffett MD Consults: PT, OT, SW, General Surgery for Endoscopy/Colonoscopy Attending Physician on discharge: Shanda Downs MD Date of Discharge: 01/02/25 DS: Diagnosis Discharge Diagnosis (1) GI bleed: Status: Acute Problem details: - GI bleed hemoglobin from 4.8-->7.8 -->8.6, s/p 3U PRBCs - Colonoscopy and Endoscopy performed 12/31: multiple sub cm polyps and EGD showed gastric ulcers which were not currently bleeding - plan to resume Clopidogrel upon d/c - on 01/01; feeling weaker with Hgb down to 7.8 again; amenable to 4th U PRBCs - on 01/02, Hgb 9.9 and patient feeling much better, ready for d/c (2) Acute blood loss anemia: Status: Acute Problem details: - 2/2 GI bleeding, presented with Hgb of 4.8 (3) Non-ST elevated myocardial infarction (non-STEMI): Status: Acute Problem details: - 2/2 demand of low hemoglobin and afib rvr - troponin peaked at 2.12, no CP - TTE performed during stay with results below (mild HFrEF) - D/C on 75mg BID Metoprolol, 50mg Losartan daily, 5mg Amlodipine daily Final Impressions: 1. Normal LV size, mildly increased wall thickness, estimated EF of 50 - 55%. 2. RV size not well-visualized, mildly reduced systolic function. 3. S/P 29 mm Armando 3 bioprosthesis AVR, no stenosis (MG 6 mmHg), and no regurgitation. 4. Significant mitral annular calcification and anterior leaflet sclerosis, moderate stenosis (MG 6 mmHg @ HR 60 bpm), mild-moderate regurgitation. 5. Unable to estimate PA pressure. 6. Dilated IVC without respiratory variation, estimated RA pressure 15 mmHg. (4) Intraabdominal mass: Status: Acute Problem details: - Soft tissue lesions adjacent to descending colon, no lesion identified during colonoscopy - outpatient follow-up with possible PET scan. (5) Atrial fibrillation with rapid ventricular response: Status: Acute Problem details: - RVR in ER; upon arrival to the floor, HR back in the 70s, then SR during stay (6) Carotid stenosis, bilateral: Status: Acute Problem details: - scheduled for R carotid endarterectomy in January 2025, will need to f/u with PCP preoperatively (7) Type 2 diabetes mellitus: Status: Acute Problem details: - last A1C was 5.9 in 10/15 (8) Wet senile macular degeneration: Status: Acute Problem details: - Functionally with very poor sight - Recommended stop driving and patient in agreement - Continue to follow-up with ophthalmology for injections for wet macular degeneration (9) Cognitive impairment: Status: Acute Problem details: - Blind [place] during stay (10) Frailty syndrome in geriatric patient: Status: Acute Problem details: - seen by therapies, home health recommended as patient declines SNF (11) Coronary artery disease: Status: Acute Problem details: - Follow-up with PCP and cardiology as an outpatient (12) Peripheral vascular disease: Status: Acute Problem details: - Pending carotid endarterectomy. (13) Tobacco dependence: Status: Acute Problem details: - Declines nicotine replacement. Encourage smoking cessation, patient p recontemplative (14) Weight loss, non-intentional: Status: Acute Problem details: - patient reports, objectively down from 102kg --> 87 kg from September 2023 to December 2024 - ongoing outpatient monitoring. DS: Summary Hospital Course Hospital Course: Obie COLEMAN) is a 79 yo male who lives independently in a [place] park near [facility], and was admitted to the hospital on 12/28/2024 for weakness and falls. 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 Since admission: - admission CT of A/P: soft tissues lesion near L colon - admission Hgb 4.8; during stay, received a total of 4U of PRBCs, ASA and Plavix HELD until discharge. Discharge Hgb 9.9 - colonoscopy and endoscopy completed 12/31 (nonbleeding gastric ulcers, + polyps) - NSTEMI with troponin peak of 2.12, TTE results c/w HFrEF (EF 50-55%), AVR stable, no chest pain - hypokalemia requiring supplementation, K james of 2.8. Potassium of 4.5 upon discharge - U culture + for 80-90K CFU of Staph epidermidis, completed course of Keflex during stay Seen by therapies for weakness, home health recommended upon discharge. OJ is much improved and ready for d/c home on 01/02/25. Time Spent with Patient Time attestation: Total time spent providing and/or coordinating discharge services: Time spent: Greater than 30 minutes Exam Narrative: Exam Narrative: GEN: Alert and interactive, having breakfast in bedside chair CV: RRR, No concerning murmurs R: LCTA bilaterally without concerning wheezing, breathing comfortably and speaking in full sentences Ab: Soft and nontender Ext: wwp, no concerning edema Skin: Scattered bruising on extremities and hyperpigmentation c/w PVD Neuro: Visual impairment is evident, no other focal abnormalities Psych: Appropriate Const: Vital Signs, click to edit/add: Vital Signs - 24 hr 01/01/25 11:57 01/01/25 13:34 01/01/25 13:57 Temperature 97.7 F 97.7 F 97.6 F Pulse Rate 66 70 Pulse Rate [Left P ulse Oximeter] 64 Respiratory Rate 16 16 16 Blood Pressure 153/64 H 142/67 H Blood Pressure [Ri ght Arm] 141/65 H Pulse Oximetry 98 97 98 Oxygen Delivery Me thod Room Air Room Air Room Air 01/01/25 14:27 01/01/25 14:57 01/01/25 15:00 Temperature 97.7 F 97.8 F Pulse Rate 66 74 Pulse Rate [Left P ulse Oximeter] 64 Respiratory Rate 16 16 16 Blood Pressure 153/66 H 154/67 H Blood Pressure [Ri ght Arm] Pulse Oximetry 98 98 Oxygen Delivery Me thod Room Air Room Air 01/01/25 15:00 01/01/25 15:30 01/01/25 17:25 Temperature 97.6 F 97.8 F Pulse Rate 95 72 Pulse Rate [Left P ulse Oximeter] 67 Respiratory Rate 16 16 Blood Pressure 164/67 H Blood Pressure [Ri ght Arm] 153/66 H Pulse Oximetry 98 98 Oxygen Delivery Me thod Room Air Room Air 01/01/25 19:24 01/01/25 20:58 01/01/25 22:48 Temperature 97.9 F 98.6 F Pulse Rate Pulse Rate [Left P ulse Oximeter] 76 70 Respiratory Rate 20 22 Blood Pressure Blood Pressure [Ri ght Arm] 164/77 H 176/114 H Pulse Oximetry 98 98 98 Oxygen Delivery Me thod Room Air Room Air 01/01/25 23:00 01/01/25 23:00 01/02/25 03:00 Temperature Pulse Rate 57 L Pulse Rate [Left P ulse Oximeter] 57 L 56 L Respiratory Rate 20 Blood Pressure Blood Pressure [Ri ght Arm] Pulse Oximetry Oxygen Delivery Me thod 01/02/25 05:07 01/02/25 07:50 Temperature Pulse Rate Pulse Rate [Left P ulse Oximeter] 76 Respiratory Rate 18 Blood Pressure Blood Pressure [Ri ght Arm] 173/85 H 200/80 H Pulse Oximetry 99 Oxygen Delivery Me thod Room Air DS: Data Data Completed and Pending Labs on day of discharge: Labs from last 24 hours 01/02/25 01/01/25 01/01/25 05:35 13:18 05:56 WBC 9.62 RBC 3.34 L Hgb 9.9 L Hct 30.5 L MCV 91 MCH 30 MCHC 33 RDW Coeff of Get 14.7 Plt Count 220 Neut % (Auto) 81.0 H Lymph % (Auto) 9.4 L [place] % (Auto) 7.4 Eos % (Auto) 1.9 Baso % (Auto) 0.1 Neut # (Auto) 7.80 H Lymph # (Auto) 0.90 [place] # (Auto) 0.70 Eos # (Auto) 0.18 Baso # (Auto) 0.01 Abs Immat Gran (auto) 0.02 Imm/Tot Granulo (auto) 0.2 Sodium 131 L Potassium 4.5 Chloride 97 Carbon Dioxide 31 Anion Gap 3 L BUN 11 Creatinine 0.9 Estimated Creat Clear 69.91 Estimated GFR 88 Glucose 99 Calcium 8.7 Magnesium 2.1 Stool H. pylori Ag Negative Blood Type A Positive Antibody Screen NEGATIVE Crossmatch (AHG) See Detail Discharge Plan Discharge Disposition: Home, Self-Care Date of Admission: 12/28/24 22:32 Attending Provider on Discharge: Raf Bernstein Consult[employer] Providers: Charmaine Meadows Primary Care Provider: Kelton Dillon Condition: Stable Anticipated Discharge Date/Time: 01/01/25 09:01 Discharge Medications: New metoprolol tartrate 50 mg tablet 50 mg PO BID Qty: 180 3RF losartan 50 mg Tablet 50 mg PO DAILY Qty: 30 0RF amlodipine 5 mg Tablet 5 mg PO DAILY Qty: 30 0RF omeprazole 20 mg Capsule,Delayed Release(Dr/Ec) 20 mg PO BID Qty: 60 3RF Continued metformin 500 mg tablet 500 mg PO DAILY trazodone 50 mg tablet 50 mg PO HS clopidogrel 75 mg tablet 75 mg PO DAILY rosuvastatin 40 mg tablet 40 mg PO HS metoprolol tartrate 75 mg tablet 75 mg PO BID aspirin [Adult Aspirin Regimen] 81 mg tablet,delayed release (DR/EC) 81 mg PO DAILY ferrous gluconate 324 mg (38 mg iron) tablet 324 mg PO DAILY Discharge Orders: Discharge Order (Routine); Ordered 01/02/25 Ordered By: Shanda Downs Additional Instructions: MEDICATIONS (three new medications sent to [facility]): - ADD Amlodipine 5mg/day for blood pressure - ADD Losartan 50mg daily for blood pressure - ADD 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 It would be a GREAT idea for your health to quit smoking (prevents future ulcers). Have your BP, Hemoglobin, and Potassium rechecked with Dr. Dillon at your followup appointment. Activity Level: Use Walker Discharge Diet: Heart Healthy (2 gm sodium, low fat) Follow Up Appointments: Kelton Dillon DO [Primary Care Provider] - (Follow-up 5-7 days. Check CBC and BMP at that appt) Forms: [employer] Info Instructions
[2025-01-02] MEDS: METOPROLOL TARTRATE 25 MG TABLET 50 MG PO (08:30)
[2025-01-02] MEDS: cephALEXin 500 MG CAPSULE PO (08:30)
[2025-01-02] MEDS: LOSARTAN POTASSIUM 50 MG TABLET PO (08:30)
[2025-01-02] MEDS: OMEPRAZOLE 20 MG CAPSULE DR PO (08:30)
[2025-01-02] MEDS: AMLODIPINE 5 MG TABLET PO (08:30)
[2025-01-02] MEDS: SODIUM CHLORIDE 0.9 % (FLUSH) 10 ML SYRINGE 5 ML IVF (08:31)
--- NOTE | 2025-01-02 12:28 | PC.NURSE ---
Pt verbalizes he is ready for discharge. VSS. denies pain. Ambulating at baseline. Pt belongings and discharge information signed. Education reviewed, no questions or concerns at this time. Pt discharged to home via cousin at 1015.
--- NOTE | 2025-01-03 13:13 | PC.SOCIAL ---
Discharge planning: NIKI informed by NIKI Blue that [facility] could not do patient's home health care and a new referral would need to be made. NIKI called [facility] who states they serve the patients area. NIKI faxed referral and received a call that they will be able to provide services to patient. NIKI called patient and left a voicemail requesting a call back.
== END 2025-01-02 10:15 | disposition home or self-care (01) | DRG 377 ==
LOC: ED 21:04 → MEDSURG 21:53
PROVIDERS: Family Medicine; Admitting Provider Family Medicine; Emergency Provider Family Medicine; PCP Family Medicine Addiction Medicine; Visit Provider Family Medicine
DX: K92.1 Melena (principal); I21.4 Non-ST elevation (NSTEMI) myocardial infarction; I50.23 Acute on chronic systolic (congestive) heart failure; D62 Acute posthemorrhagic anemia; K25.9 Gastric ulcer, unspecified as acute or chronic, without hemorrhage or perforation; R19.00 Intra-abdominal and pelvic swelling, mass and lump, unspecified site; I48.0 Paroxysmal atrial fibrillation; K57.30 Diverticulosis of large intestine without perforation or abscess without bleeding; D12.2 Benign neoplasm of ascending colon; D12.0 Benign neoplasm of cecum; D12.3 Benign neoplasm of transverse colon; D12.4 Benign neoplasm of descending colon; D12.5 Benign neoplasm of sigmoid colon; H54.8 Legal blindness, as defined in USA; I11.0 Hypertensive heart disease with heart failure; G31.84 Mild cognitive impairment of uncertain or unknown etiology; E11.9 Type 2 diabetes mellitus without complications; Z79.84 Long term (current) use of oral hypoglycemic drugs; R63.4 Abnormal weight loss; E87.6 Hypokalemia; R82.79 Other abnormal findings on microbiological examination of urine; H35.3290 Exudative age-related macular degeneration, unspecified eye, stage unspecified; R82.71 Bacteriuria; B95.7 Other staphylococcus as the cause of diseases classified elsewhere; I65.23 Occlusion and stenosis of bilateral carotid arteries; I73.9 Peripheral vascular disease, unspecified; J44.9 Chronic obstructive pulmonary disease, unspecified; I25.10 Atherosclerotic heart disease of native coronary artery without angina pectoris; Z91.81 History of falling; F17.210 Nicotine dependence, cigarettes, uncomplicated; I35.0 Nonrheumatic aortic (valve) stenosis; F10.21 Alcohol dependence, in remission
CPT/HCPCS: 00813; 36415; 36430; 43239; 45385; 70450; 71045; 74174; 80048; 80069; 80076; 81001; 82270; 82728; 82803; 83036; 83540; 83550; 83605; 83735; 83880; 84132; 84133; 84443; 84484; 85018; 85025; 85027; 85045; 85610; 85730; 86140; 86850; 86900; 86901; 86922; 87086; 87186; 87338; 87631; 88305; 93005; 93306; 94761; 97112; 97116; 97161; 97165; 97166; 97530; 97535; 99100; 99284; 99285; A9270; J1938; J2470; J2704; J3480; J3490; J7030; P9016; Q9967